=== PATIENT | female | born 1970 | race Caucasian/White ===

== ENCOUNTER 2017-01-24 10:30 | Outpatient (CLI) | payer OTHER, MEDICAID ==
--- OUTSIDE RECORDS SUMMARY | 2017-01-23 07:00 | XMS REPORT | Continuity of Care Document ---
Author Author [facility] Organization [facility] Address Unknown Phone Unavailable Allergies Active Description Code Type Severity Reaction Onset Reported/Identified Relationship to Patient Clinical Status Yes codeine [id number] Drug Allergy Unknown N/A 11/10/2006 Medications Problems Date Dx Coded Attending Type Code Diagnosis Diagnosed By 11/14/2011 Ot 599.0 11/14/2011 Ot 616.10 11/14/2011 Ot 625.9 11/14/2011 Ot 646.63 07/20/2015 Ot 652.23 07/20/2015 Ot V28.89 07/20/2015 Ot 654.23 07/20/2015 Ot V72.63 07/20/2015 Ot V74.8 01/02/2016 EWA MORIN MD Ot 724.79 01/02/2016 EWA MORIN MD Ot V76.12 01/03/2016 EWA MORIN MD Ot 724.79 01/03/2016 EWA MORIN MD Ot V76.12 01/03/2016 Ot 652.23 01/03/2016 Ot V28.89 01/03/2016 Ot 654.23 01/03/2016 Ot V72.63 01/03/2016 Ot V74.8 01/03/2016 EWA MORIN MD Ot E66.9 OBESITY, UNSPECIFIED 01/03/2016 EWA MORIN MD Ot E78.5 HYPERLIPIDEMIA, UNSPECIFIED 01/03/2016 EWA MORIN MD Ot R07.89 OTHER CHEST PAIN 01/03/2016 EWA MORIN MD Ot Z68.39 BODY MASS INDEX (BMI) 39.0-39.9, ADULT 01/03/2016 EWA MORIN MD Ot Z82.49 FAMILY HX OF ISCHEM HEART DIS AND OTH DI 01/03/2016 EWA MORIN MD Ot E66.9 01/03/2016 EWA MORIN MD Ot E78.5 01/03/2016 EWA MORIN MD Ot R07.89 01/03/2016 EWA MORIN MD Ot Z68.39 01/03/2016 EWA MORIN MD Ot Z82.49 02/21/2016 EWA MORIN MD Ot 724.79 02/21/2016 EWA MORIN MD Ot V76.12 02/21/2016 EWA MORIN MD Ot 724.79 02/21/2016 EWA MORIN MD Ot V76.12 03/07/2016 EWA MORIN MD Ot 724.79 DISORDER OF COCCYX NEC 03/07/2016 EWA MORIN MD Ot V76.12 OTH SCREEN MAMMO-MALIGN NEOPLASM OF JOANNE 06/26/2016 Ot 652.23 BREECH PRESENT-ANTEPART 06/26/2016 Ot V28.89 OTHER SPECIFIED SCREENING 06/26/2016 Ot 654.23 PREV DELIVERY, ANTEPARTUM COND 06/26/2016 Ot V72.63 PRE-PROCEDURAL LABORATORY EXAMINATION 06/26/2016 Ot V74.8 SCREEN-BACTERIAL DIS NEC 06/27/2016 EWA MORIN MD Ot M25.531 PAIN IN RIGHT WRIST 07/03/2016 Ot 652.23 BREECH PRESENT-ANTEPART 07/03/2016 Ot V28.89 OTHER SPECIFIED SCREENING 07/03/2016 Ot 654.23 PREV DELIVERY, ANTEPARTUM COND 07/03/2016 Ot V72.63 PRE-PROCEDURAL LABORATORY EXAMINATION 07/03/2016 Ot V74.8 SCREEN-BACTERIAL DIS NEC 07/03/2016 EWA MORIN MD Ot M25.531 PAIN IN RIGHT WRIST 07/08/2016 EWA MORIN MD Ot M25.531 PAIN IN RIGHT WRIST 07/29/2016 Ot 652.23 BREECH PRESENT-ANTEPART 07/29/2016 Ot V28.89 OTHER SPECIFIED SCREENING 07/29/2016 Ot 654.23 PREV DELIVERY, ANTEPARTUM COND 07/29/2016 Ot V72.63 PRE-PROCEDURAL LABORATORY EXAMINATION 07/29/2016 Ot V74.8 SCREEN-BACTERIAL DIS NEC 07/29/2016 EWA MORIN MD Ot M25.531 PAIN IN RIGHT WRIST 07/30/2016 EWA MORIN MD Ot M53.3 SACROCOCCYGEAL DISORDERS, NOT ELSEWHERE 07/30/2016 EWA MORIN MD Ot Z12.31 ENCNTR SCREEN MAMMOGRAM FOR MALIGNANT NE 08/04/2016 EWA MORIN MD Ot M53.3 SACROCOCCYGEAL DISORDERS, NOT ELSEWHERE 08/04/2016 EWA MORIN MD Ot Z12.31 ENCNTR SCREEN MAMMOGRAM FOR MALIGNANT NE 08/09/2016 EWA MORIN MD Ot M53.3 SACROCOCCYGEAL DISORDERS, NOT ELSEWHERE 08/09/2016 EWA MORIN MD Ot Z12.31 ENCNTR SCREEN MAMMOGRAM FOR MALIGNANT NE Procedures Results Encounters ACCT No. Visit Date/Time Discharge Status Pt. Type Provider Facility Loc./Unit Complaint [id number] 01/02/2016 21:27:00 2015 17:04:00 DIS Inpatient EWA MORIN MD [facility] CSD [id number] 07/26/2015 11:32:00 2014 23:59:59 CLS Outpatient EWA MORIN MD [facility] RAD [id number] 01/23/2017 06:56:00 ACT Outpatient BRII ALFRED MD [facility] PREOP DIARRHEA [id number] 07/29/2016 08:55:00 ACT Outpatient EWA MORIN MD [facility] RAD SCREENING MAMMOGRAM [id number] 06/26/2016 09:41:00 ACT Outpatient EWA MORIN MD [facility] RAD XR RT WRIST [id number] 07/20/2015 12:22:00 Document Registration [id number] 07/20/2015 12:22:00 Document Registration [id number] 06/01/2012 08:40:00 Document Registration [id number] 11/14/2011 18:43:00 Document Registration
[~2017-01-24] VITALS: Ht 162.6 cm; Wt 103.9 kg
[~2017-01-24 10:30] MED LIST: ACET-168 PO; AZIT-21 PO; AZTH250C PO; BCP PO; CHOLESTEROL MED; CPR500T PO; IBP600T1 PO; IBUP-30 PO; METR500T PO; NITR100C PO; OXYC-12 PO; PREN1TAB83 PO
[2017-01-24] MEDS ORDERED: SIMV10TA3 PO (10:56)
[2017-01-24] MEDS ORDERED: MELO15TA39 PO (10:56)
--- OUTSIDE RECORDS SUMMARY | 2017-01-24 11:08 | XMS REPORT | Continuity of Care Document ---
Author Author [facility] Organization [facility] Address Unknown Phone Unavailable Allergies Active Description Code Type Severity Reaction Onset Reported/Identified Relationship to Patient Clinical Status Yes codeine [id number] Drug Allergy Unknown N/A 11/10/2006 Medications Problems [...] MORIN MD Ot E66.9 OBESITY, UNSPECIFIED 01/03/2016 WEA MORIN MD Ot E78.5 HYPERLIPIDEMIA, UNSPECIFIED 01/03/2016 [...] Z12.31 ENCNTR SCREEN MAMMOGRAM FOR MALIGNANT NE 01/23/2017 AUBRIE OLIVEROS, BRII Warren Ot R19.7 DIARRHEA, UNSPECIFIED 01/23/2017 AUBRIE OLIVEROS, BRII Warren Ot Z01.818 ENCOUNTER FOR OTHER PREPROCEDURAL EXAMIN Procedures Results Encounters ACCT No. Visit Date/Time Discharge Status Pt. Type Provider Facility Loc./Unit Complaint [id number] 01/02/2016 21:27:00 2015 17:04:00 DIS Inpatient EWA MORIN MD [facility] CSD [id number] 07/26/2015 11:32:00 2014 23:59:59 CLS Outpatient EWA MORIN MD [facility] RAD [id number] 01/23/2017 06:56:00 ACT Outpatient BRII ALFRED MD [facility] PREOP DIARRHEA [id number] 07/29/2016 08:55:00 ACT Outpatient EWA MORIN MD [facility] RAD SCREENING MAMMOGRAM [id number] 06/26/2016 09:41:00 ACT Outpatient EWA MORIN MD [facility] RAD XR RT WRIST [id number] 07/20/2015 12:22:00 Document Registration [id number] 07/20/2015 12:22:00 Document Registration [id number] 06/01/2012 08:40:00 Document Registration [id number] 11/14/2011 18:43:00 Document Registration
== END 2017-01-24 11:25 ==
LOC: PREOP 10:30
PROVIDERS: ATTEND Surgery
DX: Z01.818 Encounter for other preprocedural examination (principal); R19.7 Diarrhea, unspecified

== ENCOUNTER 2017-01-27 08:26 | Day surgery (SDC) | payer OTHER, MEDICAID ==
[~2017-01-27] VITALS: Ht 162.6 cm; Wt 103.9 kg
[~2017-01-27 08:26] MED LIST changes: +MELO15TA39 PO; +SIMV10TA3 PO
--- OUTSIDE RECORDS SUMMARY | 2017-01-27 08:29 | XMS REPORT | Continuity of Care Document ---
Author Author [facility] Organization [facility] Address Unknown Phone Unavailable Allergies Active Description Code Type Severity Reaction Onset Reported/Identified Relationship to Patient Clinical Status Yes codeine [id number] Drug Allergy Unknown N/A 11/10/2006 Yes codeine [id number] Drug Allergy Moderate GI UPSET/NUMBNE 01/24/2017 Medications Problems Date Dx Coded Attending Type [...] 07/29/2016 Ot V74.8 SCREEN-BACTERIAL DIS NEC 07/29/2016 PATIENCE OLIVEROS, EWA Wren Ot M25.531 PAIN IN RIGHT WRIST 07/30/2016 [...] Ot Z01.818 ENCOUNTER FOR OTHER PREPROCEDURAL EXAMIN 01/24/2017 AUBRIE OLIVEROS, BRII Warren Ot R19.7 DIARRHEA, UNSPECIFIED 01/24/2017 AUBRIE OLIVEROS, BRII Warren Ot Z01.818 ENCOUNTER FOR OTHER PREPROCEDURAL EXAMIN 01/24/2017 AUBRIE OLIVEROS, BRII Warren Ot R19.7 DIARRHEA, UNSPECIFIED 01/24/2017 AUBRIE OLIVEROS, BRII Warren Ot Z01.818 ENCOUNTER FOR OTHER PREPROCEDURAL EXAMIN Procedures Results Encounters ACCT No. Visit Date/Time Discharge Status Pt. Type Provider Facility Loc./Unit Complaint [id number] 01/24/2017 10:30:00 2016 11:25:00 DIS Outpatient BRII ALFRED MD [facility] PREOP DIARRHEA [id number] 01/02/2016 21:27:00 2015 17:04:00 DIS Inpatient EWA MORIN MD [facility] CSD [id number] 07/26/2015 11:32:00 2014 23:59:59 CLS Outpatient EWA MORIN MD [facility] RAD [id number] 01/24/2017 10:56:00 Document Registration [id number] 01/24/2017 10:56:00 Document Registration [id number] 07/29/2016 08:55:00 ACT Outpatient PATIENCE OLIVEROS, EWA Wren [facility] RAD SCREENING MAMMOGRAM [id number] 06/26/2016 09:41:00 ACT Outpatient EWA MORIN MD [facility] RAD XR RT WRIST [id number] 07/20/2015 12:22:00 Document Registration [id number] 07/20/2015 12:22:00 Document Registration [id number] 06/01/2012 08:40:00 Document Registration [id number] 11/14/2011 18:43:00 Document Registration
--- OUTSIDE RECORDS SUMMARY | 2017-01-27 08:30 | XMS REPORT | Continuity of Care Document ---
Author Author [facility] Organization [facility] Address Unknown Phone Unavailable Allergies Active Description Code Type Severity Reaction Onset Reported/Identified Relationship to Patient Clinical Status Yes codeine [id number] Drug Allergy Unknown N/A 11/10/2006 Yes codeine [id number] Drug Allergy Moderate GI UPSET/NUMBNE 01/24/2017 Medications [...] Ot V74.8 SCREEN-BACTERIAL DIS NEC 06/27/2016 EWA OMRIN MD Ot M25.531 PAIN IN RIGHT WRIST [...] Status Pt. Type Provider Facility Loc./Unit Complaint [id number] 01/24/2017 10:30:00 2016 11:25:00 DIS Outpatient BRII ALFRED MD [facility] PREOP DIARRHEA [id number] 01/02/2016 21:27:00 2015 17:04:00 DIS Inpatient EWA MORIN MD [facility] CSD [id number] 07/26/2015 11:32:00 2014 23:59:59 CLS Outpatient EWA MORIN MD [facility] RAD [id number] 01/24/2017 10:56:00 Document Registration [id number] 01/24/2017 10:56:00 Document Registration [id number] 07/29/2016 08:55:00 ACT Outpatient PATIENCE OLIVEROS, EWA Wren [facility] RAD SCREENING MAMMOGRAM [id number] 06/26/2016 09:41:00 ACT Outpatient EWA MORIN MD [facility] RAD XR RT WRIST [id number] 07/20/2015 12:22:00 Document Registration [id number] 07/20/2015 12:22:00 Document Registration [id number] 06/01/2012 08:40:00 Document Registration [id number] 11/14/2011 18:43:00 Document Registration
[2017-01-27] MEDS ORDERED: NS IV 500 ML 500 ML IV SCH (08:45)
[2017-01-27] MEDS ORDERED: NALOXONE 0.4 MG/ML 1 ML (NARCAN) VIAL IVP PRN (08:45)
[2017-01-27] MEDS ORDERED: FLUMAZENIL (ROMAZICON) 0.1 MG/ML 5 ML VIAL INJ PRN (08:45)
[2017-01-27 08:58] VITALS: BP 125/78
--- NOTE | 2017-01-27 09:23 | Pre-Op Note & Conscious Sedat ---
Pre-Operative Progress Note H&P Reviewed The H&P was reviewed, patient examined and no changes noted. Date H&P Reviewed: Jan 27, 2017 Time H&P Reviewed: 09:23 Pre-Op Diagnosis: ddiarrhea. Family history of colon polyps Conscious Sedation Pre-Proced ASA Class: 2 Airway Mallampati Classification: (cahto appropriate class) I. II. III, IV Lungs Heart ASA score ASA 1: a normal healthy patient ASA 2: a patient with a mild systemic disease (mid diabetes, controlled hypertension, obesity ASA 3: a patient with a severe systemic disease that limits activity (angina , COPD, prior Myocardial infarction) ASA 4: a patient with an incapacitating disease that is a constant threat to life (CHF, renal failure) ASA 5: a moribund patient not expected to survive 24 hrs. (ruptured aneurysm) ASA 6: a declared brain patient whose organs are being harvested. For emergent operations, add the letter E after the classification Grade 1 Sedation Plan: Discussed options with patient/fam Note The patient is an appropriate candidate to undergo the planned procedure, sedation, and anesthesia. The patient immediately re-assessed prior to indication. BRII ALFRED MD Jan 27, 2017 9:23 am
[2017-01-27] MEDS ORDERED: fentaNYL INJECTION 100 MCG/2 ML AMP ONE ×2 (10:04)
[2017-01-27] MEDS ORDERED: MIDAZOLAM 2 MG/2 ML (VERSED) VIAL ONE ×4 (10:04→10:05)
[2017-01-27] MEDS: fentaNYL INJECTION 100 MCG/2 ML AMP IVP PRN ×2 (10:19→10:21)
[2017-01-27] MEDS: MIDAZOLAM 2 MG/2 ML (VERSED) VIAL IVP PRN ×2 (10:20→10:24)
[2017-01-27 10:55] VITALS: BP 96/60
--- NOTE | 2017-01-27 10:58 | Progress Note-Post Operative ---
Post-Operative Progess Note Pre-Operative Diagnosis diarrhea. Family history of colon polyps Post-Operative Diagnosis normal examination Post-Op Procedure Note Date of Procedure: Jan 27, 2017 Name of Procedure: colonoscopy to cecum Anesthesia Type sedation BRII ALFRED MD Jan 27, 2017 10:58 am
--- NOTE | 2017-01-27 10:59 | Discharge Inst-Simple/Standard ---
Discharge Inst-Standard Discharge Medications New, Converted or Re-Newed RX: Other Patient Instructions/Follow Up Plan of Care/Instructions/FU: repeat colonoscopy in 5 years Activity as Tolerated: Yes Discharge Diet: No Restrictions BRII ALFRED MD Jan 27, 2017 10:59 am
[2017-01-27 11:25] VITALS: BP 96/50
--- NOTE | 2017-01-27 11:40 | OPERATIVE REPORT ---
PROCEDURE PHYSICIAN: BRII ALFRED DATE OF PROCEDURE: 01/27/2017 PROCEDURE: Colonoscopy. SURGEON: Dr. Alfred. INDICATION FOR THE PROCEDURE: This lady came in for colonoscopy to evaluate intermittent diarrhea and on the basis of a family history of polyps (both parents). Informed consent was obtained after reviewing the procedure in detail. DESCRIPTION OF PROCEDURE: She was placed in left lateral decubitus position and her vital signs were monitored. Conscious sedation was achieved using Versed and fentanyl. Digital rectal examination was unremarkable. The colonoscope was then introduced into the rectum and advanced all the way up to the cecum. The quality of bowel preparation was excellent. The scope was then withdrawn slowly and the mucosa examined in a systematic fashion. There was no abnormality. She tolerated the procedure well and was taken back to the nursing area in a stable condition. IMPRESSION: 1. Intermittent diarrhea. 2. Family history of polyps. 3. Normal colonoscopy. RECOMMENDATION: 1. I recommend treating diarrhea symptomatically. 2. Screening colonoscopy in 5 years in view of family history of polyps. Job ID: [id number] Dictated Date: 01/27/2017 10:57:54 Invoice Coder Date: 01/27/2017 11:37:37 / guy MONTEMAYOR
== END 2017-01-27 11:45 | disposition home or self-care (01) ==
LOC: ENDO 08:26
PROVIDERS: ATTEND Surgery
DX: R19.7 Diarrhea, unspecified (principal); Z83.71 Family history of colonic polyps

== ENCOUNTER 2017-02-27 18:28 | Emergency (ER) | payer OTHER, MEDICAID ==
[~2017-02-27] VITALS: Ht 162.6 cm; Wt 102.1 kg
--- NOTE | 2017-02-27 19:16 | ED Abdominal Pain ---
General Chief Complaint: Abdominal/GI Problems Stated Complaint: ABD PAIN Nursing Triage Note: c/o bilateral upper abdomen pain x 2 days, denies n/v/d, denies pain at this time Sepsis Screen: No Definite Risk Source of Information: Patient Exam Limitations: No Limitations History of Present Illness Time Seen By Provider: 19:16 Initial Comments To ER with right-sided abdominal pain since yesterday morning. She denies any associated nausea vomiting or diarrhea or constipation. Despite the pain she was able to eat a [place] rio cheeseburger and cheese fries for lunch today without a worsening of her pain. She has a remote history of cholecystectomy. Timing/Duration: 1-2 Days Severity/Quality: Moderate Location: RUQ, Epigastric Radiation: No Radiation Associated Symptoms: No Fever/Chills, No Nausea/Vomiting Allergies and Home Medications Allergies Coded Allergies: codeine (Verified Allergy, Intermediate, GI UPSET/NUMBNESS IN ARMS, ) Home Medications Meloxicam 15 Mg Tablet, 15 MG PO DAILY, (Reported) Simvastatin 10 Mg Tablet, 10 MG PO HS, (Reported) Review of Systems Constitutional: see HPI EENTM: No Symptoms Reported Respiratory: No Symptoms Reported Cardiovascular: No Symptoms Reported Gastrointestinal: See HPI, Abdominal Pain, Denies Constipated, Denies Diarrhea , Denies Nausea, Denies Vomiting Genitourinary: No Symptoms Reported Musculoskeletal: no symptoms reported Skin: no symptoms reported Psychiatric/Neurological: No Symptoms Reported Endocrine: No Symptoms Reported Past Yuxrmsi-Ultxmg-Xnvqcj Hx Patient Social History Alcohol Use: Occasionally Uses Recreational Drug Use: No Smoking Status: Never a Smoker Former Smoker/When Quit: Aug 03, 1992 Recent Foreign Travel: No Contact w/Someone Who Travel: No Recent Infectious Disease Expo: No Recent Hopitalizations: No Immunizations Up To Date Tetanus Booster (TDap): Less than 5yrs PED Vaccines UTD: No Date of Influenza Vaccine: Aug 19, 2016 Seasonal Allergies Seasonal Allergies: No Surgeries HX Surgeries: Yes (RIGHT HAND CYST REMOVED, lymph node biopsy right axilla) Surgeries: Section, Gallbladder Respiratory Hx Respiratory Disorders: No Cardiovascular Hx Cardiac Disorders: Yes Cardiac Disorders: High Cholesterol Neurological Hx Neurological Disorders: No Reproductive System Hx Reproductive Disorders: No Sexually Transmitted Disease: No HIV/AIDS: No Female Reproductive Disorders: Denies Genitourinary Hx Genitourinary Disorders: No Gastrointestinal Hx Gastrointestinal Disorders: No Gastrointestinal Disorders: Gall Bladder Disease Musculoskeletal Hx Musculoskeletal Disorders: Yes (LEFT SHOULDER/NECK PAIN) Endocrine Hx Endocrine Disorders: No HEENT HX ENT Disorders: No (GLASSES) Loss of Vision: Bilateral Hearing Impairment: Denies Cancer Hx Cancer: No Psychosocial Hx Psychiatric Problems: No Integumentary HX Skin/Integumentary Disorder: No Blood Transfusions Hx Blood Disorders: No Adverse Reaction to a Blood Tr: No (N/A) Family Medical History Significant Family History: Heart Disease, Diabetes Family Medial History: Colon cancer 19 FATHER Diabetes mellitus 19 MOTHER G8 SISTER FH: CHF (congestive heart failure) 19 FATHER 19 MOTHER FH: breast cancer 19 MOTHER Myocardial infarction 19 FATHER Thyroid disease 19 MOTHER G8 SISTER Physical Exam Vital Signs VS - Last 72 Hours, by Label 02/27/17 19:08 Temp 99.4 Pulse 85 Resp 18 B/P (MAP) 138/101 Pulse Ox 96 Capillary Refill : Less Than 3 Seconds General Appearance: WD/WN, no apparent distress HEENT: PERRL/EOMI, normal ENT inspection Neck: non-tender, full range of motion Respiratory: normal breath sounds, no respiratory distress, no accessory muscle use Cardiovascular: regular rate, rhythm, no murmur Gastrointestinal: normal bowel sounds, non tender, soft Extremities: normal range of motion, non-tender Neurologic/Psychiatric: alert, normal mood/affect, oriented x 3 Skin: normal color, warm/dry Progress/Results/Core Measures Results/Orders Lab Results Laboratory Tests Test 02/27/17 19:25 02/27/17 20:20 Range/Units White Blood Count 7.9 4.3-11.0 10^3/uL Red Blood Count 4.45 4.35-5.85 10^6/uL Hemoglobin 12.8 11.5-16.0 G/DL Hematocrit 40 35-52 % Mean Corpuscular Volume 89 80-99 FL Mean Corpuscular Hemoglobin 29 25-34 PG Mean Corpuscular Hemoglobin Concent 32 32-36 G/DL Red Cell Distribution Width 12.6 10.0-14.5 % Platelet Count 280 130-400 10^3/uL Mean Platelet Volume 10.3 7.4-10.4 FL Neutrophils (%) (Auto) 69 42-75 % Lymphocytes (%) (Auto) 20 12-44 % Monocytes (%) (Auto) 8 0-12 % Eosinophils (%) (Auto) 3 0-10 % Basophils (%) (Auto) 0 0-10 % Neutrophils # (Auto) 5.5 1.8-7.8 X 10^3 Lymphocytes # (Auto) 1.6 1.0-4.0 X 10^3 Monocytes # (Auto) 0.6 0.0-1.0 X 10^3 Eosinophils # (Auto) 0.2 0.0-0.3 10^3/uL Basophils # (Auto) 0.0 0.0-0.1 10^3/uL Sodium Level 141 135-145 MMOL/L Potassium Level 3.8 3.6-5.0 MMOL/L Chloride Level 108 H 98-107 MMOL/L Carbon Dioxide Level 22 21-32 MMOL/L Anion Gap 11 5-14 MMOL/L Blood Urea Nitrogen 18 7-18 MG/DL Creatinine 0.68 0.60-1.30 MG/DL Estimat Glomerular Filtration Rate > 60 BUN/Creatinine Ratio 26 Glucose Level 97 70-105 MG/DL Calcium Level 9.2 8.5-10.1 MG/DL Total Bilirubin 0.2 0.1-1.0 MG/DL Aspartate Amino Transf (AST/SGOT) 31 5-34 U/L Alanine Aminotransferase (ALT/SGPT) 58 H 0-55 U/L Alkaline Phosphatase 130 40-136 U/L Total Protein 7.4 6.4-8.2 G/DL Albumin 4.4 3.2-4.5 G/DL Lipase 35 8-78 U/L Urine Color YELLOW Urine Clarity CLEAR Urine pH 8 5-9 Urine Specific [place] 1.015 L 1.016-1.022 Urine Protein NEGATIVE NEGATIVE Urine Glucose (UA) NEGATIVE NEGATIVE Urine Ketones NEGATIVE NEGATIVE Urine Nitrite NEGATIVE NEGATIVE Urine Bilirubin NEGATIVE NEGATIVE Urine Urobilinogen NORMAL NORMAL MG/DL Urine Leukocyte Esterase NEGATIVE NEGATIVE Urine RBC (Auto) NEGATIVE NEGATIVE Urine RBC NONE /HPF Urine WBC NONE /HPF Urine Squamous Epithelial Cells 2-5 /HPF Urine Crystals PRESENT H /LPF Urine Amorphous Sediment FEW IDA PHOSPHATE H /LPF Urine Bacteria NONE /HPF Urine Casts NONE /LPF Urine Mucus NEGATIVE /LPF Urine Culture Indicated NO My Orders Orders - FABIANA OLIVAS BRISKET PULLER Cbc With Automated Diff (02/27/17 19:12) Comprehensive Metabolic Panel (02/27/17 19:12) Ua Culture If Indicated (02/27/17 19:12) Lipase (4/20/17 19:12) Saline Lock/Iv-Start (02/27/17 19:12) Ct Abdomen/Pelvis W (02/27/17 20:55) Iohexol Injection (Omnipaque 350 Mg/Ml 1 (02/27/17 21:15) Ns (Ivpb) (Sodium Chloride 0.9% Ivpb Bag (02/27/17 21:15) Vital Signs/I&O Vital Sign - Last 12Hours 02/27/17 19:08 Temp 99.4 Pulse 85 Resp 18 B/P (MAP) 138/101 Pulse Ox 96 Blood Pressure Mean: 113 Departure Communication Progress Notes 2151-I did discuss with the patient and her the absence of any findings on lab or CT and the possibility of this being peptic ulcer given the right upper quadrant pain. She should use [id number] Pepcid or Prilosec twice a day for the next 14 days and follow-up with her regular physician. I did discuss these recommendations with her and her . Impression Impression: Primary Impression: Nonspecific abdominal pain Disposition: 01 HOME, SELF-CARE Condition: Stable Departure-Patient Inst. Decision time for Depature: 20:34 Referrals: EWA MORIN MD (PCP/Family) Primary Care Physician Patient Instructions: NO INSTRUCTIONS GIVEN Add. Discharge Instructions: 1. Follow-up with her regular doctor later this week or next week 2. Return to ER for any worsening 3. All discharge instructions reviewed with patient and/or family. Voiced understanding. FABIANA OLIVAS BRISKET PULLER Feb 27, 2017 19:16
[2017-02-27 19:57] LABS: BASOPHILS % (AUTO) 0 % (0-10); EOSINOPHILS # (AUTO) 0.2 10^3/uL (0.0-0.3); EOSINOPHILS % (AUTO) 3 % (0-10); LYMPHOCYTES # (AUTO) 1.6 X 10^3 (1.0-4.0); LYMPHOCYTES % (AUTO) 20 % (12-44); MEAN CORPUSCULAR HEMOGLOBIN 29 PG (25-34); MEAN CORPUSCULAR HGB CONC 32 G/DL (32-36); MEAN CORPUSCULAR VOLUME 89 FL (80-99); MEAN PLATELET VOLUME 10.3 FL (7.4-10.4); MONOCYTES # (AUTO) 0.6 X 10^3 (0.0-1.0); MONOCYTES % (AUTO) 8 % (0-12); NEUTROPHILS # (AUTO) 5.5 X 10^3 (1.8-7.8); NEUTROPHILS % (AUTO) 69 % (42-75); PLATELET COUNT 280 10^3/uL (130-400); RED BLOOD COUNT 4.45 10^6/uL (4.35-5.85); RED CELL DISTRIBUTION WIDTH 12.6 % (10.0-14.5); WHITE BLOOD COUNT 7.9 10^3/uL (4.3-11.0)
[2017-02-27 20:03] LABS: ALANINE AMINOTRANSFERASE 58 U/L (0-55); ALBUMIN 4.4 G/DL (3.2-4.5); ANION GAP 11 MMOL/L (5-14); ASPARTATE AMINO TRANSFERASE 31 U/L (5-34); BILIRUBIN,TOTAL 0.2 MG/DL (0.1-1.0); BLOOD UREA NITROGEN 18 MG/DL (7-18); BUN/CREATININE RATIO 26; CALCIUM 9.2 MG/DL (8.5-10.1); CARBON DIOXIDE 22 MMOL/L (21-32); CHLORIDE 108 MMOL/L (98-107); CREATININE SERUM 0.68 MG/DL (0.60-1.30); GFR ESTIMATED > 60; GLUCOSE 97 MG/DL (70-105); LIPASE 35 U/L (8-78); POTASSIUM 3.8 MMOL/L (3.6-5.0); SODIUM 141 MMOL/L (135-145); TOTAL PROTEIN 7.4 G/DL (6.4-8.2)
[2017-02-27 20:30] LABS: BILIRUBIN,URINE NEGATIVE (NEGATIVE); KETONES,URINE NEGATIVE (NEGATIVE); LEUKOCYTE ESTERASE ,URINE NEGATIVE (NEGATIVE); NITRITE,URINE NEGATIVE (NEGATIVE); PH,URINE 8 (5-9); PROTEIN,URINE NEGATIVE (NEGATIVE); UROBILINOGEN,URINE NORMAL (NORMAL)
[2017-02-27] MEDS ORDERED: NS 100 ML (IVPB) BAG IV ONE (21:15)
[2017-02-27] MEDS ORDERED: IOHEXOL 350 MG/ML 100 ML (OMNIPAQUE 350) VIAL IV ONE (21:15)
--- NOTE | 2017-02-27 21:37 | Diagnostic Imaging Report ---
PROCEDURE: CT abdomen and pelvis with contrast. TECHNIQUE: Multiple contiguous axial images were obtained through the abdomen and pelvis after administration of intravenous contrast. INDICATION: Stomach cramps. Upper abdominal pain. FINDINGS: The gallbladder is absent. The liver and bile ducts are normal. The spleen, pancreas and adrenals are normal. The kidneys, ureters and bladder are normal. The appendix is normal. No acute bowel abnormality is seen. There is no free intraperitoneal air or fluid. There is no bony abnormality. IMPRESSION: No acute abnormality is seen. Dictated by: Dictated on workstation # [id number]
[2017-02-27 21:54] VITALS: BP 129/95
== END 2017-02-27 21:54 | disposition home or self-care (01) ==
LOC: EDUNIT# 18:28 → ER 18:30
DX: R10.11 Right upper quadrant pain (principal); Z90.49 Acquired absence of other specified parts of digestive tract
CPT/HCPCS: 36415; 74177; 80053; 81000; 83690; 85025

== ENCOUNTER → 2017-07-29 | Outpatient (CLI) | payer OTHER, MEDICAID ==
[~2017-07-29] MED LIST changes: +BARIUM SUSPENSION 105% (LIQUID POLIBAR PLUS) 240 ML/DOSE PO ONE; +BARIUM SUSPENSION 60% (LIQUID EZ PAQUE) 240 ML DOSE PO ONE
--- NOTE | 2017-07-29 10:06 | Diagnostic Imaging Report ---
EXAMINATION: Upper GI study, double contrast. Corrugated Box Machine Operator image of the abdomen was performed. After the oral administration of gas forming granules, the patient drank thick and thin barium with visualization under fluoroscopy, with spot images taken over the esophagus, stomach and duodenum and followed by overhead images in the chest and abdomen. INDICATION: Reflux. FLUOROSCOPY TIME: 50 seconds. FINDINGS: Corrugated Box Machine Operator images of the abdomen demonstrate moderate amount of fecal material. Surgical clips in the upper right side of the abdomen is seen. The esophagus demonstrates normal caliber with no strictures. The mucosal pattern demonstrates no filling defects, diverticulum or ulceration. There is normal relaxation of the distal sphincter. There is no hiatal hernia. The stomach demonstrates normal distensibility with normal appearance of the mucosal folds. There are no ulcers or evidence of mass. The duodenal bulb and sweep appear normal. IMPRESSION: Unremarkable double-contrast upper GI study. Dictated by: Dictated on workstation # [id number]
== END ==
LOC: RAD 08:35
PROVIDERS: ATTEND Surgery
DX: K21.9 Gastro-esophageal reflux disease without esophagitis (principal)
CPT/HCPCS: 74241

== ENCOUNTER → 2017-08-11 | Outpatient (CLI) | payer OTHER, MEDICAID ==
[~2017-08-11] MED LIST changes: -BARIUM SUSPENSION 105% (LIQUID POLIBAR PLUS) 240 ML/DOSE PO ONE; -BARIUM SUSPENSION 60% (LIQUID EZ PAQUE) 240 ML DOSE PO ONE
--- NOTE | 2017-08-12 11:17 | Diagnostic Imaging Report ---
EXAMINATION: Bilateral screening mammogram 2D views with tomosynthesis. The current study was also evaluated with a Computer Aided Detection (CAD) system. INDICATION: Screening. PERSONAL HISTORY: No current complaints stated on the questionnaire. COMPARISON: 07/29/2016. FINDINGS: The breasts are composed of heterogeneously dense parenchyma which may decrease mammographic sensitivity. There are punctate scattered calcifications seen. Allowing for technique and positional differences, no suspicious change is seen. IMPRESSION: Dense breasts with no definite change. ACR BI-RADS Category 2: Benign findings. Result letter will be mailed to the patient. Note: At least 10% of breast cancer is not imaged by mammography. Dictated by: Dictated on workstation # [id number]
== END ==
LOC: RAD 15:22
PROVIDERS: ATTEND Family Medicine
DX: Z12.31 Encounter for screening mammogram for malignant neoplasm of breast (principal)
CPT/HCPCS: 77067

== ENCOUNTER 2017-08-24 18:19 | Emergency (ER) | payer OTHER, MEDICAID ==
[~2017-08-24] VITALS: Ht 162.6 cm; Wt 102.1 kg
[2017-08-24] MEDS ORDERED: METH4TAB PO (19:40)
--- NOTE | 2017-08-24 19:40 | ED Upper Extremity ---
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 This began this morning at about 8 or 830 while at work at [employer]. 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 Onset: this morning Severity: moderate Pain/Injury Location: left shoulder Method of Injury: other (presumed related to lifting patients) Modifying Factors: Worse With Movement Allergies and Home Medications Allergies Coded Allergies: codeine (Verified Allergy, Intermediate, GI UPSET/NUMBNESS IN ARMS, ) Home Medications Meloxicam 15 Mg Tablet, 15 MG PO DAILY, (Reported) Methylprednisolone 4 Mg Tab.ds.pk, 4 MG PO UD, #1 Prescribed by: FABIANA OLIVAS on 08/24/171939 Simvastatin 10 Mg Tablet, 10 MG PO HS, (Reported) Constitutional: see HPI EENTM: see HPI Respiratory: no symptoms reported Cardiovascular: no symptoms reported Genitourinary: no symptoms reported Musculoskeletal: see HPI Skin: no symptoms reported Psychiatric/Neurological: No Symptoms Reported Past Qermxkq-Lzmamm-Ownlty Hx Patient Social History Former Smoker, Quit: Jan 24, 1994 Recent Foreign Travel: No Contact w/Someone Who Travel: No Recent Infectious Disease Expo: No Recent Hopitalizations: No Immunizations Up To Date Tetanus Booster (TDap): Less than 5yrs PED Vaccines UTD: No Date of Influenza Vaccine: Aug 19, 2016 Seasonal Allergies Seasonal Allergies: No Surgeries Surgeries: Section, Gallbladder Cardiovascular Cardiac Disorders: High Cholesterol Reproductive System Hx Reproductive Disorders: No Sexually Transmitted Disease: No HIV/AIDS: No Female Reproductive Disorders: Denies Gastrointestinal Gastrointestinal Disorders: Gall Bladder Disease HEENT Loss of Vision: Bilateral Hearing Impairment: Denies Blood Transfusions Adverse Reaction to a Blood Tr: No (N/A) Family Medical History Significant Family History: Heart Disease, Diabetes Family Medial History: Colon cancer 19 FATHER Diabetes mellitus 19 MOTHER G8 SISTER FH: CHF (congestive heart failure) 19 FATHER 19 MOTHER FH: breast cancer 19 MOTHER Myocardial infarction 19 FATHER Thyroid disease 19 MOTHER G8 SISTER Physical Exam Vital Signs Vital Sign - Last 12Hours 08/24/17 19:09 Pulse 93 Resp 16 B/P (MAP) 123/76 Pulse Ox 94 O2 Delivery Room Air Capillary Refill : Less Than 3 Seconds General Appearance: WD/WN, no apparent distress HEENT: PERRL/EOMI, normal ENT inspection Neck: non-tender, full range of motion Respiratory: no respiratory distress, no accessory muscle use Gastrointestinal: normal bowel sounds, non tender Shoulder: normal inspection, No deformity, No ecchymosis, limited ROM, pain, No soft tissue tenderness, No swelling Elbow/Forearm: normal inspection, non-tender Wrist: Yes normal inspection, Yes non-tender Neurologic/Psychiatric: alert, normal mood/affect, oriented x 3 Skin: normal color, warm/dry Progress/Results/Core Measures Results/Orders My Orders Orders - FABIANA OLIVAS APRN Shoulder, Left, 3 Views (08/24/17 19:36) Vital Signs/I&O Vital Sign - Last 12Hours 08/24/17 19:09 Pulse 93 Resp 16 B/P (MAP) 123/76 Pulse Ox 94 O2 Delivery Room Air Blood Pressure Mean: 92 Departure Communication (Admissions) Progress Notes NAME: KIMBERLYN [facility] REC#: [id number] PT STATUS: REG ER : 1970 PHYSICIAN: FABIANA OLIVAS APRN ADMIT DATE: 08/24/17/ER Draft Date of Exam:08/24/17 SHOULDER, LEFT, 3 VIEWS INDICATION: Left shoulder pain, injury. COMPARISON: None. FINDINGS: Three views of left shoulder demonstrate no fracture or dislocation. Articular surfaces are age-appropriate. No osseous lesion. IMPRESSION: Negative left shoulder. Dictated on workstation # [id number] Dict: 08/24/171950 Trans: 08/24/171956 [facility] [id number] Interpreted by: EWA EDWARD Electronically signed by: Impression Impression: Primary Impression: Shoulder pain Disposition: 01 HOME, SELF-CARE Condition: Stable Departure-Patient Inst. Decision time for Depature: 19:38 Referrals: EWA MORIN MD (PCP/Family) Primary Care Physician Patient Instructions: Shoulder Pain (DC) Add. Discharge Instructions: 1. Follow-up with occupational health. If the pain resolves then you may remove the sling and begin using the arm again. If the pain persists they may wish to proceed to further imaging such as MRI All discharge instructions reviewed with patient and/or family. Voiced understanding. Scripts Methylprednisolone (Medrol) 4 Mg Tab.ds.pk 4 MG PO UD, #1 PKG Prov: FABIANA OLIVAS APRN 08/24/17 FABIANA OLIVAS APRN Aug 24, 2017 19:40
--- NOTE | 2017-08-24 19:58 | Diagnostic Imaging Report ---
INDICATION: Left shoulder pain, injury. COMPARISON: None. FINDINGS: Three views of left shoulder demonstrate no fracture or dislocation. Articular surfaces are age-appropriate. No osseous lesion. IMPRESSION: Negative left shoulder. Dictated by: Dictated on workstation # [id number]
[2017-08-24 20:22] VITALS: BP 123/76
== END 2017-08-24 20:17 | disposition home or self-care (01) ==
LOC: ER 18:19
DX: M25.512 Pain in left shoulder (principal); E78.00 Pure hypercholesterolemia, unspecified; Z82.49 Family history of ischemic heart disease and other diseases of the circulatory system; Z80.3 Family history of malignant neoplasm of breast; Z87.891 Personal history of nicotine dependence; Z87.59 Personal history of other complications of pregnancy, childbirth and the puerperium
CPT/HCPCS: 73030; 99283

== ENCOUNTER 2017-10-14 19:56 | Emergency (ER) | payer OTHER, MEDICAID ==
[~2017-10-14] VITALS: Ht 162.6 cm; Wt 102.1 kg
[~2017-10-14 19:56] MED LIST changes: +METH4TAB PO
[2017-10-14] MEDS ORDERED: methylPREDNISolone 125 MG (Solu-MEDROL) VIAL IM STA (20:36)
[2017-10-14] MEDS ORDERED: FAMOTIDINE 20 MG (PEPCID) TABLET PO STA (20:36)
[2017-10-14] MEDS ORDERED: diphenhydrAMINE 25 MG TAB (BENADRYL) PO ONE (20:45)
[2017-10-14] MEDS ORDERED: FAMO-119 PO (21:03)
[2017-10-14] MEDS ORDERED: PRD20T PO (21:03)
--- NOTE | 2017-10-14 21:04 | ED Integumentary General ---
General Chief Complaint: Allergic Reaction Stated Complaint: WHOLE BODY RASH Nursing Triage Note: PT REPORTS GENERALIZED RASH WITH ITCHING Source: patient Exam Limitations: no limitations History of Present Illness Time seen by provider: 21:02 Allergies and Home Medications Allergies Coded Allergies: codeine (Verified Allergy, Intermediate, GI UPSET/NUMBNESS IN ARMS, ) Home Medications Famotidine 20 Mg Tablet, 20 MG PO BID, #20 Ref 0 Prescribed by: DELMAR GONSALVES on 10/14/172102 Meloxicam 15 Mg Tablet, 15 MG PO DAILY, (Reported) Methylprednisolone 4 Mg Tab.ds.pk, 4 MG PO UD, #1 Prescribed by: FABIANA OLIVAS on 08/24/171939 Prednisone 20 Mg Tab, 40 MG PO DAILY, #10 Ref 0 Prescribed by: DELMAR GONSALVES on 10/14/172102 Simvastatin 10 Mg Tablet, 10 MG PO HS, (Reported) Past Oeqiyzf-Pgrxak-Hqtupi Hx Patient Social History Alcohol Use: Denies Use Recreational Drug Use: No Smoking Status: Never a Smoker Former Smoker, Quit: Jan 24, 1994 2nd Hand Smoke Exposure: No Recent Foreign Travel: No Contact w/Someone Who Travel: No Recent Infectious Disease Expo: No Recent Hopitalizations: No Physical Abuse: No Sexual Abuse: No Immunizations Up To Date Tetanus Booster (TDap): Less than 5yrs PED Vaccines UTD: No Date of Influenza Vaccine: Aug 19, 2016 Seasonal Allergies Seasonal Allergies: No Surgeries History of Surgeries: Yes (RIGHT HAND CYST REMOVED, lymph node biopsy right axilla) Surgeries: Section, Gallbladder Respiratory History of Respiratory Disorde: No Cardiovascular History of Cardiac Disorders: Yes Cardiac Disorders: High Cholesterol Neurological History of Neurological Disord: No Reproductive System Hx Reproductive Disorders: No Sexually Transmitted Disease: No HIV/AIDS: No Female Reproductive Disorders: Denies Gastrointestinal History of Gastrointestinal Di: No Gastrointestinal Disorders: Gall Bladder Disease Musculoskeletal History of Musculoskeletal Dis: Yes (LEFT SHOULDER/NECK PAIN) Endocrine History of Endocrine Disorders: No HEENT Loss of Vision: Bilateral Hearing Impairment: Denies Cancer History of Cancer: No Psychosocial History of Psychiatric Problem: No Suicide Risk Score: 0 Integumentary History of Skin or Integumenta: No Blood Transfusions History of Blood Disorders: No Adverse Reaction to a Blood Tr: No (N/A) Family Medical History Significant Family History: Heart Disease, Diabetes Family Medial History: Colon cancer 19 FATHER Diabetes mellitus 19 MOTHER G8 SISTER FH: CHF (congestive heart failure) 19 FATHER 19 MOTHER FH: breast cancer 19 MOTHER Myocardial infarction 19 FATHER Thyroid disease 19 MOTHER G8 SISTER Physical Exam Vital Signs Vital Sign - Last 12Hours 10/14/17 20:06 Temp 98.9 Pulse 75 Resp 16 B/P (MAP) 134/84 (101) Pulse Ox 99 O2 Delivery Room Air Capillary Refill : Less Than 3 Seconds Progress/Results/Core Measures Results/Orders My Orders Orders - DELMAR GONSALVES Methylprednisolone Sod Succ (Solu-Medrol (10/14/17 20:36) Famotidine Tablet (Pepcid Tablet) (10/14/17 20:36) Diphenhydramine Tablet (Benadryl Tablet) (10/14/17 20:45) Medications Given in ED Current Medications Medications Dose Ordered Sig/Farhat Route Start Time Stop Time Status Last Admin Dose Admin Diphenhydramine HCl 25 mg ONCE ONCE PO 10/14/17 20:45 10/14/17 20:46 DC 10/14/17 20:48 25 MG Vital Signs/I&O Vital Sign - Last 12Hours 10/14/17 20:06 Temp 98.9 Pulse 75 Resp 16 B/P (MAP) 134/84 (101) Pulse Ox 99 O2 Delivery Room Air Blood Pressure Mean: 101 Departure Impression Impression: Primary Impression: Allergic dermatitis Disposition: 01 HOME, SELF-CARE Condition: Improved Departure-Patient Inst. Decision time for Depature: 21:02 Referrals: EWA MORIN MD (PCP/Family) Primary Care Physician Patient Instructions: Skin Rash (DC) Add. Discharge Instructions: All discharge instructions reviewed with patient and/or family. Voiced understanding. Medications as instructed. Benadryl hyln-zdx-rdbarvi as directed for itching and rash. Follow-up with your family practitioner for recheck if no improvement in symptoms. Return in the emergency department for worsened itching, swelling, difficulty breathing, difficulty swallowing, facial swelling, or any other concerns. Scripts Famotidine (Pepcid) 20 Mg Tablet 20 MG PO BID, #20 TAB 0 Refills Prov: DELMAR GONSALVES 10/14/17 Prednisone (Prednisone) 20 Mg Tab 40 MG PO DAILY, #10 TAB 0 Refills Prov: DELMAR GONSALVES 10/14/17 Work/School Note: Work Release Form Date Seen in the Emergency Department: Oct 14, 2017 Return to Work: Oct 16, 2017 DELMAR GONSALVES Oct 14, 2017 21:04
[2017-10-14 21:15] VITALS: BP 134/84
== END 2017-10-14 21:15 | disposition home or self-care (01) ==
LOC: EDUNIT# 19:56 → ER 19:58
DX: L23.9 Allergic contact dermatitis, unspecified cause (principal); E78.00 Pure hypercholesterolemia, unspecified; Z82.49 Family history of ischemic heart disease and other diseases of the circulatory system; Z80.3 Family history of malignant neoplasm of breast; Z87.891 Personal history of nicotine dependence; Z87.59 Personal history of other complications of pregnancy, childbirth and the puerperium
CPT/HCPCS: 99284

== ENCOUNTER 2017-10-26 07:15 | Observation (INO) | payer OTHER, MEDICAID ==
[~2017-10-26] VITALS: Ht 170.2 cm; Wt 107.7 kg
[~2017-10-26 07:15] MED LIST changes: +FAMO-119 PO; +PRD20T PO
--- OUTSIDE RECORDS SUMMARY | 2017-10-26 07:21 | XMS REPORT | Continuity of Care Document ---
Author Author [facility] Organization [facility] Address Unknown Phone Unavailable Allergies Active Description Code Type Severity Reaction Onset Reported/Identified Relationship to Patient Clinical Status Yes codeine [id number] Drug Allergy Unknown N/A 11/10/2006 Yes codeine [id number] Drug Allergy Moderate GI UPSET/NUMBNE 01/24/2017 Medications There is no data. Problems Date Dx Coded Attending Type Code [...] PREV DELIVERY, ANTEPARTUM COND 06/26/2016 Ot V72.63 PRE- PROCEDURAL LABORATORY EXAMINATION 06/26/2016 Ot V74.8 SCREEN- BACTERIAL DIS NEC 06/27/2016 EWA MORIN MD Ot M25.531 PAIN IN RIGHT WRIST 07/03/2016 Ot 652.23 BREECH PRESENT-ANTEPART 07/03/2016 Ot V28.89 OTHER SPECIFIED SCREENING 07/03/2016 Ot 654.23 PREV DELIVERY, ANTEPARTUM COND 07/03/2016 Ot V72.63 PRE- PROCEDURAL LABORATORY EXAMINATION 07/03/2016 Ot V74.8 SCREEN- BACTERIAL DIS NEC 07/03/2016 EWA MORIN MD Ot M25.531 PAIN IN RIGHT WRIST 07/08/2016 EWA MORIN MD Ot M25.531 PAIN IN RIGHT WRIST 07/29/2016 Ot 652.23 BREECH PRESENT-ANTEPART 07/29/2016 Ot V28.89 OTHER SPECIFIED SCREENING 07/29/2016 Ot 654.23 PREV DELIVERY, ANTEPARTUM COND 07/29/2016 Ot V72.63 PRE- PROCEDURAL LABORATORY EXAMINATION 07/29/2016 Ot V74.8 SCREEN- BACTERIAL DIS NEC 07/29/2016 PATIENCE OLIVEROS, EWA Wren Ot M25.531 PAIN IN RIGHT WRIST 07/30/2016 PATIENCE OLIVEROS, EWA Wren Ot M53.3 SACROCOCCYGEAL DISORDERS, NOT ELSEWHERE 07/30/2016 EWA MORIN MD Ot Z12.31 ENCNTR SCREEN MAMMOGRAM FOR MALIGNANT NE 08/04/2016 EWA MORIN MD Ot M53.3 SACROCOCCYGEAL DISORDERS, NOT ELSEWHERE 08/04/2016 EWA MORIN MD Ot Z12.31 ENCNTR SCREEN MAMMOGRAM FOR MALIGNANT NE 08/09/2016 EWA MORIN MD, Ot M53.3 SACROCOCCYGEAL DISORDERS, NOT ELSEWHERE 08/09/2016 [...] Ot Z01.818 ENCOUNTER FOR OTHER PREPROCEDURAL EXAMIN 01/27/2017 Ot 652.23 BREECH PRESENT-ANTEPART 01/27/2017 Ot V28.89 OTHER SPECIFIED SCREENING 01/27/2017 Ot 654.23 PREV DELIVERY, ANTEPARTUM COND 01/27/2017 Ot V72.63 PRE- PROCEDURAL LABORATORY EXAMINATION 01/27/2017 Ot V74.8 SCREEN- BACTERIAL DIS NEC 01/27/2017 EWA MORIN MD Ot M53.3 SACROCOCCYGEAL DISORDERS, NOT ELSEWHERE 01/27/2017 EWA MORIN MD Ot Z12.31 ENCNTR SCREEN MAMMOGRAM FOR MALIGNANT NE 01/27/2017 PATIENCE OLIVEROS, EWA Wren Ot M25.531 PAIN IN RIGHT WRIST 01/27/2017 AUBRIE OLIVEROS, BRII M Ot R19.7 DIARRHEA, UNSPECIFIED 01/27/2017 AUBRIE OLIVEROS, BRII M Ot Z83.71 FAMILY HISTORY OF COLONIC POLYPS 01/27/2017 AUBRIE OLIVEROS, BRII M Ot R19.7 DIARRHEA, UNSPECIFIED 01/27/2017 AUBRIE OLIVEROS, BRII M Ot Z01.818 ENCOUNTER FOR OTHER PREPROCEDURAL EXAMIN 01/28/2017 AUBRIE OLIVEROS, BRII M Ot R19.7 DIARRHEA, UNSPECIFIED 01/28/2017 AUBRIE OLIVEROS, BRII M Ot Z83.71 FAMILY HISTORY OF COLONIC POLYPS 01/30/2017 AUBRIE OLIVEROS, BRII M Ot R19.7 DIARRHEA, UNSPECIFIED 01/30/2017 AUBRIE OLIVEROS, BRII M Ot Z01.818 ENCOUNTER FOR OTHER PREPROCEDURAL EXAMIN 02/11/2017 AUBRIE OLIVEROS, BRII M Ot R19.7 DIARRHEA, UNSPECIFIED 02/11/2017 AUBRIE OLIVEROS, BRII M Ot Z83.71 FAMILY HISTORY OF COLONIC POLYPS 02/27/2017 FABIANA OLIVAS APRN Ot R10.11 RIGHT UPPER QUADRANT PAIN 02/27/2017 FABIANA OLIVAS TECHNOLOGY ADVISOR Ot Z90.49 ACQUIRED ABSENCE OF OTHER SPECIFIED PART 02/28/2017 FABIANA OLIVAS TECHNOLOGY ADVISOR Ot R10.11 RIGHT UPPER QUADRANT PAIN 02/28/2017 FABIANA OLIVAS TECHNOLOGY ADVISOR Ot Z90.49 ACQUIRED ABSENCE OF OTHER SPECIFIED PART 08/08/2017 ANNEMARIE BRYANT MD Ot K21.9 GASTRO-ESOPHAGEAL REFLUX DISEASE WITHOUT 08/12/2017 EWA MORIN MD Ot Z12.31 ENCNTR SCREEN MAMMOGRAM FOR MALIGNANT NE 08/20/2017 ANNEMARIE BRYANT MD Ot K21.9 GASTRO-ESOPHAGEAL REFLUX DISEASE WITHOUT 08/22/2017 EWA MORIN MD Ot Z12.31 ENCNTR SCREEN MAMMOGRAM FOR MALIGNANT NE 08/24/2017 FABIANA OLIVAS APRN Ot E78.00 PURE HYPERCHOLESTEROLEMIA, UNSPECIFIED 08/24/2017 FABIANA OLIVAS APRN Ot M25.512 PAIN IN LEFT SHOULDER 08/24/2017 FABIANA OLIVAS APRN Ot Z80.3 FAMILY HISTORY OF MALIGNANT NEOPLASM OF 08/24/2017 FABIANA OLIVAS APRN Ot Z82.49 FAMILY HX OF ISCHEM HEART DIS AND OTH DI 08/24/2017 FABIANA OLIVAS APRN Ot Z87.59 PERSONAL HISTORY OF COMP OF PREG, CHLDBR 08/24/2017 FABIANA OLIVAS APRN Ot Z87.891 PERSONAL HISTORY OF NICOTINE DEPENDENCE 08/30/2017 ANNEMARIE BRYANT MD Ot K21.9 GASTRO-ESOPHAGEAL REFLUX DISEASE WITHOUT 08/30/2017 EWA MORIN MD, Ot Z12.31 ENCNTR SCREEN MAMMOGRAM FOR MALIGNANT NE 10/14/2017 Ot 654.23 PREV DELIVERY, ANTEPARTUM COND 10/14/2017 Ot V72.63 PRE- PROCEDURAL LABORATORY EXAMINATION 10/14/2017 Ot V74.8 SCREEN- BACTERIAL DIS NEC 10/14/2017 EWA MORIN MD Ot M53.3 SACROCOCCYGEAL DISORDERS, NOT ELSEWHERE 10/14/2017 EWA MORIN MD, Ot Z12.31 ENCNTR SCREEN MAMMOGRAM FOR MALIGNANT NE 10/14/2017 EWA MORIN MD Ot M25.531 PAIN IN RIGHT WRIST 10/14/2017 ANNEMARIE BRYANT MD Ot K21.9 GASTRO-ESOPHAGEAL REFLUX DISEASE WITHOUT 10/14/2017 EWA MORIN MD, Ot Z12.31 ENCNTR SCREEN MAMMOGRAM FOR MALIGNANT NE 10/15/2017 DELMAR HERNANDEZ Ot E78.00 PURE HYPERCHOLESTEROLEMIA, UNSPECIFIED 10/15/2017 DELMAR HERNANDEZ Ot L23.9 ALLERGIC CONTACT DERMATITIS, UNSPECIFIED 10/15/2017 DELMAR HERNANDEZ Ot R21 RASH AND OTHER NONSPECIFIC SKIN ERUPTION 10/15/2017 DELMAR HERNANDEZ Ot Z80.3 FAMILY HISTORY OF MALIGNANT NEOPLASM OF 10/15/2017 DELMAR HERNANDEZ Ot Z82.49 FAMILY HX OF ISCHEM HEART DIS AND OTH DI 10/15/2017 DELMAR HERNANDEZ Ot Z87.59 PERSONAL HISTORY OF COMP OF PREG, CHLDBR 10/15/2017 DELMAR HERNANDEZ Ot Z87.891 PERSONAL HISTORY OF NICOTINE DEPENDENCE Procedures There is no data. Results Test Result Range Complete blood count (CBC) with automated white blood cell (WBC) differential - 02/27/17 19:25 Blood leukocytes automated count (number/volume) 7.9 10*3/uL 4.3-11.0 Blood erythrocytes automated count (number/volume) 4.45 10*6/uL 4.35-5.85 Venous blood hemoglobin measurement (mass/volume) 12.8 g/dL 11.5-16.0 Blood hematocrit (volume fraction) 40 % 35-52 Automated erythrocyte mean corpuscular volume 89 [foz_us] 80-99 Automated erythrocyte mean corpuscular hemoglobin (mass per erythrocyte) 29 pg 25-34 Automated erythrocyte mean corpuscular hemoglobin concentration measurement ( mass/volume) 32 g/dL 32-36 Automated erythrocyte distribution width ratio 12.6 % 10.0-14.5 Automated blood platelet count (count/volume) 280 10*3/uL 130-400 Automated blood platelet mean volume measurement 10.3 [foz_us] 7.4-10.4 Automated blood neutrophils/100 leukocytes 69 % 42-75 Automated blood lymphocytes/100 leukocytes 20 % 12-44 Blood monocytes/100 leukocytes 8 % 0-12 Automated blood eosinophils/100 leukocytes 3 % 0-10 Automated blood basophils/100 leukocytes 0 % 0-10 Blood neutrophils automated count (number/volume) 5.5 10*3 1.8-7.8 Blood lymphocytes automated count (number/volume) 1.6 10*3 1.0-4.0 Blood monocytes automated count (number/volume) 0.6 10*3 0.0-1.0 Automated eosinophil count 0.2 10*3/uL 0.0-0.3 Automated blood basophil count (count/volume) 0.0 10*3/uL 0.0-0.1 Comprehensive metabolic panel - 02/27/17 19:25 Serum or plasma sodium measurement (moles/volume) 141 mmol/L 135-145 Serum or plasma potassium measurement (moles/volume) 3.8 mmol/L 3.6-5.0 Serum or plasma chloride measurement (moles/volume) 108 mmol/L 98-107 Carbon dioxide 22 mmol/L 21-32 Serum or plasma anion gap determination (moles/volume) 11 mmol/L 5-14 Serum or plasma urea nitrogen measurement (mass/volume) 18 mg/dL 7-18 Serum or plasma creatinine measurement (mass/volume) 0.68 mg/dL 0.60-1.30 Serum or plasma urea nitrogen/creatinine mass ratio 26 NRG Serum or plasma creatinine measurement with calculation of estimated glomerular filtration rate > NRG Serum or plasma glucose measurement (mass/volume) 97 mg/dL 70-105 Serum or plasma calcium measurement (mass/volume) 9.2 mg/dL 8.5-10.1 Serum or plasma total bilirubin measurement (mass/volume) 0.2 mg/dL 0.1-1.0 Serum or plasma alkaline phosphatase measurement (enzymatic activity/volume) 130 U/L 40-136 Serum or plasma aspartate aminotransferase measurement (enzymatic activity/ volume) 31 U/L 5-34 Serum or plasma alanine aminotransferase measurement (enzymatic activity/volume ) 58 U/L 0-55 Serum or plasma protein measurement (mass/volume) 7.4 g/dL 6.4-8.2 Serum or plasma albumin measurement (mass/volume) 4.4 g/dL 3.2-4.5 Lipase - 02/27/17 19:25 Lipase 35 U/L 8-78 Complete urinalysis with reflex to culture - 02/27/17 20:20 Urine color determination YELLOW NRG Urine clarity determination CLEAR NRG Urine pH measurement by test strip 8 5-9 Specific gravity of urine by test strip 1.015 1.016- 1.022 Urine protein assay by test strip, semi-quantitative NEGATIVE NEGATIVE Urine glucose detection by automated test strip NEGATIVE NEGATIVE Erythrocytes detection in urine sediment by light microscopy NEGATIVE NEGATIVE Urine ketones detection by automated test strip NEGATIVE NEGATIVE Urine nitrite detection by test strip NEGATIVE NEGATIVE Urine total bilirubin detection by test strip NEGATIVE NEGATIVE Urine urobilinogen measurement by automated test strip (mass/volume) NORMAL NORMAL Urine leukocyte esterase detection by dipstick NEGATIVE NEGATIVE Automated urine sediment erythrocyte count by microscopy (number/high power field) NONE NRG Automated urine sediment leukocyte count by microscopy (number/high power field ) NONE NRG Bacteria detection in urine sediment by light microscopy NONE NRG Squamous epithelial cells detection in urine sediment by light microscopy 2-5 NRG Crystals detection in urine sediment by light microscopy PRESENT NRG Casts detection in urine sediment by light microscopy NONE NRG Mucus detection in urine sediment by light microscopy NEGATIVE NRG Complete urinalysis with reflex to culture NO NRG Amorphous sediment detection in urine sediment by light microscopy FEW IDA PHOSPHATE NRG Encounters ACCT No. Visit Date/Time Discharge Status Pt. Type Provider Facility Loc./Unit Complaint [id number] 10/14/2017 19:58:00 10/14/2017 21:15:00 DIS Outpatient DELMAR HERNANDEZ [facility] ER WHOLE BODY RASH [id number] 08/24/2017 18:19:00 08/24/2017 20:17:00 DIS Emergency FABIANA OLIVAS TECHNOLOGY ADVISOR [facility] ER L SHOULDER PAIN [id number] 08/11/2017 15:22:00 08/11/2017 23:59:59 CLS Outpatient EWA MORIN MD [facility] RAD SCREENING [id number] 07/29/2017 08:35:00 07/29/2017 23:59:59 CLS Outpatient ANNEMARIE BRYANT MD [facility] RAD REFLUX K21.9 [id number] 02/27/2017 18:30:00 02/27/2017 21:54:00 DIS Emergency FABIANA OLIVAS TECHNOLOGY ADVISOR [facility] ER ABD PAIN [id number] 01/27/2017 08:26:00 01/27/2017 11:45:00 DIS Outpatient BRII ALFRED MD [facility] ENDO DIARRHEA [id number] 01/24/2017 10:30:00 01/24/2017 11:25:00 DIS Outpatient BRII ALFRED MD [facility] PREOP DIARRHEA [id number] 07/29/2016 08:55:00 07/29/2016 23:59:59 CLS Outpatient EWA MORIN MD [facility] RAD SCREENING MAMMOGRAM [id number] 06/26/2016 09:41:00 06/26/2016 23:59:59 CLS Outpatient EWA MORIN MD [facility] RAD XR RT WRIST [id number] 01/02/2016 21:27:00 01/03/2016 17:04:00 DIS Inpatient EWA MORIN MD [facility] CSD [id number] 07/26/2015 11:32:00 07/26/2015 23:59:59 CLS Outpatient PATIENCE OLIVEROS [facility] [id number] 01/24/2017 10:56:00 Document Registration [id number] 01/24/2017 10:56:00 Document Registration [id number] 07/20/2015 12:22:00 Document Registration [id number] 07/20/2015 12:22:00 Document Registration [id number] 06/01/2012 08:40:00 Document Registration [id number] 11/14/2011 18:43:00 Document Registration
[2017-10-26] MEDS ORDERED: fentaNYL INJECTION 100 MCG/2 ML AMP IVP ONE (08:00)
[2017-10-26] MEDS ORDERED: NS IV 1000 ML 1,000 ML IV SCH (08:00)
--- NOTE | 2017-10-26 08:04 | ED EENT ---
History of Present Illness General Chief Complaint: Oral/Throat Problems Stated Complaint: SORE THROAT Nursing Triage Note: PT C/O SORE THROAT SINCE THIS AM. PT IS AFEBRILE Source: patient, family Exam Limitations: no limitations History of Present Illness Time seen by provider: 07:55 Initial Comments 47-year-old white female presents with severe sore throat that began last night. Patient has had one similar episode in the past secondary strep. Patient denies history of previous mononucleosis. Patient has had extreme difficulty in swallowing. She has had no difficulty handling her airway. Patient's had no associated productive cough, vomiting, diarrhea, headache or stiff neck. She denies photophobia. Patient is complaining of a sharp nonradiating pain to her posterior oropharynx. Allergies and Home Medications Allergies Coded Allergies: codeine (Verified Allergy, Intermediate, GI UPSET/NUMBNESS IN ARMS, ) Home Medications Famotidine 20 Mg Tablet, 20 MG PO BID, #20 Ref 0 Prescribed by: DELMAR GONSALVES on 10/14/172102 Meloxicam 15 Mg Tablet, 15 MG PO DAILY, (Reported) Methylprednisolone 4 Mg Tab.ds.pk, 4 MG PO UD, #1 Prescribed by: FABIANA OLIVAS on 08/24/171939 Prednisone 20 Mg Tab, 40 MG PO DAILY, #10 Ref 0 Prescribed by: DELMAR GONSALVES on 10/14/172102 Simvastatin 10 Mg Tablet, 10 MG PO HS, (Reported) Review of Systems Constitutional: No chills, No fever Eyes: Denies Blurred Vision, Denies Photophobia Ears: Denies Dizziness Nose: denies congestion, denies epistaxis Mouth: other (there is diffuse inflammation of the patient's oral pharynx including the uvula.) Throat: see HPI, pain, denies swelling, denies neck stiffness Respiratory: No cough Cardiovascular: No chest pain Gastrointestinal: No diarrhea, No nausea, No vomiting Musculoskeletal: No back pain Skin: No rash Neurological: No Symptoms Reported Hematologic/Lymphatic: No Symptoms Reported Immunological/Allergic: no symptoms reported Past Rdugufd-Effrin-Xqejcq Hx Patient Social History Alcohol Use: Denies Use Recreational Drug Use: No Smoking Status: Former Smoker Former Smoker, Quit: Jan 24, 1994 2nd Hand Smoke Exposure: No Recent Foreign Travel: No Contact w/Someone Who Travel: No Recent Infectious Disease Expo: No Recent Hopitalizations: No Immunizations Up To Date Tetanus Booster (TDap): Less than 5yrs PED Vaccines UTD: No Date of Influenza Vaccine: Aug 19, 2016 Seasonal Allergies Seasonal Allergies: No Surgeries History of Surgeries: Yes (RIGHT HAND CYST REMOVED, lymph node biopsy right axilla) Surgeries: Section, Gallbladder Respiratory History of Respiratory Disorde: No Cardiovascular History of Cardiac Disorders: Yes Cardiac Disorders: High Cholesterol Neurological History of Neurological Disord: No Reproductive System Hx Reproductive Disorders: No Sexually Transmitted Disease: No HIV/AIDS: No Female Reproductive Disorders: Denies Gastrointestinal History of Gastrointestinal Di: No Gastrointestinal Disorders: Gall Bladder Disease Musculoskeletal History of Musculoskeletal Dis: Yes (LEFT SHOULDER/NECK PAIN) Endocrine History of Endocrine Disorders: No HEENT Loss of Vision: Bilateral Hearing Impairment: Denies Cancer History of Cancer: No Psychosocial History of Psychiatric Problem: No Integumentary History of Skin or Integumenta: No Blood Transfusions History of Blood Disorders: No Adverse Reaction to a Blood Tr: No (N/A) Reviewed Nursing Assessment Reviewed/Agree w Nursing PMH: Yes Family Medical History Significant Family History: Heart Disease, Diabetes Family Medial History: Colon cancer 19 FATHER Diabetes mellitus 19 MOTHER G8 SISTER FH: CHF (congestive heart failure) 19 FATHER 19 MOTHER FH: breast cancer 19 MOTHER Myocardial infarction 19 FATHER Thyroid disease 19 MOTHER G8 SISTER Physical Exam Vital Signs Vital Sign - Last 12Hours 10/26/17 07:40 Temp 97.5 Pulse 85 Resp 16 B/P (MAP) 140/92 (108) Pulse Ox 98 O2 Delivery Room Air General Appearance: WD/WN, moderate distress Eyes: bilateral eye normal inspection Ears: bilateral ear other (impacted wax in the right ear) Nose: normal inspection Mouth/Throat: uvula swelling, other (pharyngeal erythema. No pustules or exudates.) Neck: non-tender, full range of motion Cardiovascular: normal peripheral pulses, regular rate, rhythm Respiratory: chest non-tender, lungs clear, normal breath sounds Gastrointestinal: normal bowel sounds, non tender, soft Neurologic/Psychiatric: no motor/sensory deficits, alert, normal mood/affect Skin: normal color, warm/dry, No rash Progress/Results/Core Measures Results/Orders Lab Results Laboratory Tests Test 10/26/17 07:50 10/26/17 08:20 Range/Units Group A Streptococcus Screen NEGATIVE NEGATIVE White Blood Count 12.0 H 4.3-11.0 10^3/uL Red Blood Count 4.38 4.35-5.85 10^6/uL Hemoglobin 13.0 11.5-16.0 G/DL Hematocrit 39 35-52 % Mean Corpuscular Volume 88 80-99 FL Mean Corpuscular Hemoglobin 30 25-34 PG Mean Corpuscular Hemoglobin Concent 34 32-36 G/DL Red Cell Distribution Width 13.0 10.0-14.5 % Platelet Count 257 130-400 10^3/uL Mean Platelet Volume 9.8 7.4-10.4 FL Neutrophils (%) (Auto) 84 H 42-75 % Lymphocytes (%) (Auto) 8 L 12-44 % Monocytes (%) (Auto) 6 0-12 % Eosinophils (%) (Auto) 2 0-10 % Basophils (%) (Auto) 0 0-10 % Neutrophils # (Auto) 10.1 H 1.8-7.8 X 10^3 Lymphocytes # (Auto) 1.0 1.0-4.0 X 10^3 Monocytes # (Auto) 0.7 0.0-1.0 X 10^3 Eosinophils # (Auto) 0.2 0.0-0.3 10^3/uL Basophils # (Auto) 0.0 0.0-0.1 10^3/uL Monoscreen NEGATIVE NEGATIVE My Orders Orders - LEW CAMPOS MD Cbc With Automated Diff (10/26/17 07:53) Monotest (10/26/17 07:53) Rapid Strep A Screen (10/26/17 07:53) Fentanyl Injection (Sublimaze Injection (10/26/17 08:00) Ns Iv 1000 Ml (Sodium Chloride 0.9%) (10/26/17 08:00) Methylprednisolone Sod Succ (Solu-Medrol (10/26/17 08:15) Medications Given in ED Current Medications Medications Dose Ordered Sig/Farhat Route Start Time Stop Time Status Last Admin Dose Admin Fentanyl Citrate 50 mcg ONCE ONCE IVP 10/26/17 08:00 10/26/17 08:01 DC 10/26/17 08:15 50 MCG Vital Signs/I&O Vital Sign - Last 12Hours 10/26/17 07:40 Temp 97.5 Pulse 85 Resp 16 B/P (MAP) 140/92 (108) Pulse Ox 98 O2 Delivery Room Air Blood Pressure Mean: 108 Progress Note : Time: 09:24 Progress Note Patient was treated with IV fentanyl and Solu-Medrol. Patient strep, mono, and CBC was unremarkable. Despite the pain medications and steroids the patient was still in severe discomfort and requested that we watch her with IV fluids and further IV medications in the hospital today. was agreeable and the patient was admitted. Departure Communication (Admissions) Time/Spoke to Admitting Phy: 09:[address] Morin Impression Impression: Primary Impression: Pharyngitis Qualified Codes: J02.9 - Acute pharyngitis, unspecified Disposition: ADMITTED INPATIENT Condition: Improved Admissions Decision to Admit Reason: Admit from ER (General) Decision to Admit/Date: Oct 26, 2017 Time/Decision to Admit Time: 09:27 Departure-Patient Inst. Referrals: EWA MORIN MD (PCP/Family) Primary Care Physician LEW CAMPOS MD Oct 26, 2017 08:04
[2017-10-26] MEDS ORDERED: methylPREDNISolone 125 MG (Solu-MEDROL) VIAL IVP ONE (08:15)
[2017-10-26 08:27] LABS: BASOPHILS % (AUTO) 0 % (0-10); EOSINOPHILS # (AUTO) 0.2 10^3/uL (0.0-0.3); EOSINOPHILS % (AUTO) 2 % (0-10); LYMPHOCYTES % (AUTO) 8 % (12-44); MEAN CORPUSCULAR HEMOGLOBIN 30 PG (25-34); MEAN CORPUSCULAR HGB CONC 34 G/DL (32-36); MEAN CORPUSCULAR VOLUME 88 FL (80-99); MEAN PLATELET VOLUME 9.8 FL (7.4-10.4); MONOCYTES # (AUTO) 0.7 X 10^3 (0.0-1.0); MONOCYTES % (AUTO) 6 % (0-12); NEUTROPHILS # (AUTO) 10.1 X 10^3 (1.8-7.8); NEUTROPHILS % (AUTO) 84 % (42-75); PLATELET COUNT 257 10^3/uL (130-400); RED BLOOD COUNT 4.38 10^6/uL (4.35-5.85)
[2017-10-26] MEDS ORDERED: AZITHROMYCIN 100 MG/5 ML (ZITHROMAX) 15ML BTL PO ONE (09:45)
[2017-10-26] MEDS ORDERED: AZITHROMYCIN 200 MG/5 ML (ZITHROMAX) 30 ML PO ONE (10:00)
[2017-10-26 10:10] VITALS: BP 141/93
[2017-10-26] MEDS: NS IV 1000 ML 1,000 ML IV SCH ×2 (11:42→22:14)
[2017-10-26 11:43] VITALS: BP 138/90
[2017-10-26] MEDS: methylPREDNISolone 125 MG (Solu-MEDROL) VIAL IV SCH ×2 (11:43→17:57)
[2017-10-26] MEDS ORDERED: fentaNYL INJECTION 100 MCG/2 ML AMP IV PRN (11:45)
[2017-10-26] MEDS ORDERED: HYDROCODONE/CHLOR 10MG/5 ML (TUSSIONEX SUSP) 5ML UDC PO PRN (11:45)
[2017-10-26] MEDS ORDERED: HYDROcodone/APAP 7.5MG-325 MG/15 ML (LORTAB) UDC PO PRN (12:00)
[2017-10-26] MEDS ORDERED: SIMV10TA3 PO (12:27)
[2017-10-26] MEDS ORDERED: MELO15TA39 PO (12:27)
[2017-10-26] MEDS ORDERED: ACET-93 PO (12:30)
[2017-10-26] MEDS ORDERED: IBUP-2055 PO (12:30)
--- NOTE | 2017-10-26 13:31 | History & Physicial ---
History of Present Illness History of Present Illness Reason for visit/HPI 47-year-old female presents to [facility] emergency department with reports of severe sore throat that began last night. She is having a very difficult time swallowing. She also believes she has been running a fever. She has been working around other individuals who have some sort of respiratory infection she states. She rated the pain a 10 over 10 in the emergency room. She has had strep throat in the past but no mononucleosis. At this time she has no reports of a headache or neck pain. Date of Admission Oct 26, 2017 at 09:37 Date Seen by Provider: Oct 26, 2017 Time Seen by Provider: 14:00 I consulted on this patient on 10/26/17 13:26 Attending Physician Ewa Morin MD Admitting Physician Ewa Morin MD Consult Allergies and Home Medications Allergies Coded Allergies: codeine (Verified Allergy, Intermediate, GI UPSET/NUMBNESS IN ARMS, ) Home Medications Acetaminophen 500 Mg Tablet, 1,000 MG PO Q4H PRN for PAIN-MILD, (Reported) TAKES 2 (500 MG) TABLETS / ALTERNATES WITH IBUPROFEN Ibuprofen 200 Mg Tablet, 400 MG PO Q4H PRN for PAIN-MILD, (Reported) TAKES 2 (200 MG) TABLETS / ALTERNATES WITH ACETAMINOPHEN Meloxicam 15 Mg Tablet, 15 MG PO DAILY, (Reported) Simvastatin 10 Mg Tablet, 10 MG PO HS, (Reported) Past Ppzgahl-Ibrwpv-Fzqukk Hx Patient Social History Marrital Status: Number of Children: 4 Alcohol Use: Denies Use Recreational Drug Use: No Smoking Status: Former Smoker Former Smoker, Quit: Jan 24, 1994 Type Used: Cigarettes 2nd Hand Smoke Exposure: No Physical Abuse Screen: No Sexual Abuse: No Recent Foreign Travel: No Contact w/other who traveled: No Recent Hopitalizations: No Recent Infectious Disease Expo: No Immunizations Up To Date Tetanus Booster (TDap): Less than 5yrs Pediatric: No Date of Influenza Vaccine: Aug 10, 2017 Seasonal Allergies Seasonal Allergies: No Surgeries Yes (RIGHT HAND CYST REMOVED, lymph node biopsy right axilla) Section, Gallbladder Respiratory No Cardiovascular Yes High Cholesterol Neurological No Reproductive System Hx Reproductive Disorders: No Sexually Transmitted Disease: No HIV/AIDS: No Female Reproductive Disorders: Denies Gastrointestinal No Gall Bladder Disease Musculoskeletal Yes (LEFT SHOULDER/NECK PAIN) Endocrine History of Endocrine Disorders: No HEENT Loss of Vision: Bilateral Hearing Impairment: Denies Cancer No Psychosocial History of Psychiatric Problem: No Integumentary History of Skin or Integumenta: No Blood Transfusions History of Blood Disorders: No Adverse Reaction to a Blood Tr: No (N/A) Reviewed Nursing Assessment Reviewed/Agree w Nursing PMH: Yes Family Medical History Significant Family History: Heart Disease, Diabetes Family Hx: Colon cancer 19 FATHER Diabetes mellitus 19 MOTHER G8 SISTER FH: CHF (congestive heart failure) 19 FATHER 19 MOTHER FH: breast cancer 19 MOTHER Myocardial infarction 19 FATHER Thyroid disease 19 MOTHER G8 SISTER Constitutional: see HPI Physical Exam Vital Signs Vital Sign - Last 12Hours 10/26/17 07:40 Temp 97.5 Pulse 85 Resp 16 B/P (MAP) 140/92 (108) Pulse Ox 98 O2 Delivery Room Air Capillary Refill : Less Than 3 Seconds General Appearance: Mild Distress Eyes: Bilateral Eye Normal Inspection HEENT: Moist Mucous Membranes, Pharyngeal Erythema Neck: Full Range of Motion, Supple Respiratory: Lungs Clear Cardiovascular: Regular Rate, Rhythm Gastrointestinal: Soft Rectal: Deferred Back: Normal Inspection Skin: Normal Color Assessment/Plan Assessment and Plan 1. Pharyngitisand currently negative for strep by screen and mono -She is admitted for observation status due to the inability to swallow -throat will be cultured -she will be covered for bacterial source with Zithromax. She is allergic to the penicillins 2. Severe pain with dysphagia -Patient admitted for observation and IV pain control. Problems: Admission Diagnosis 1. Pharyngitissevere with negative for strep and mono 2. Severe pain with dysphagia Clinical Quality Measures DVT/VTE Risk/Contraindication: Risk Factor Score Per Nursin RFS Level Per Nursing on Admit: 2=Moderate EWA MORIN MD Oct 26, 2017 13:31
[2017-10-26 15:29] VITALS: BP 121/71
[2017-10-26 20:10] VITALS: BP 135/76
[2017-10-27 00:05] VITALS: BP 128/76
[2017-10-27] MEDS: methylPREDNISolone 125 MG (Solu-MEDROL) VIAL IV SCH ×2 (00:09→06:24)
[2017-10-27 04:05] VITALS: BP 122/57
[2017-10-27 05:27] LABS: BASOPHILS % (AUTO) 0 % (0-10); EOSINOPHILS % (AUTO) 0 % (0-10); LYMPHOCYTES # (AUTO) 0.5 X 10^3 (1.0-4.0); LYMPHOCYTES % (AUTO) 3 % (12-44); MEAN CORPUSCULAR HEMOGLOBIN 30 PG (25-34); MEAN CORPUSCULAR HGB CONC 33 G/DL (32-36); MEAN CORPUSCULAR VOLUME 89 FL (80-99); MONOCYTES # (AUTO) 0.1 X 10^3 (0.0-1.0); MONOCYTES % (AUTO) 1 % (0-12); NEUTROPHILS # (AUTO) 16.3 X 10^3 (1.8-7.8); NEUTROPHILS % (AUTO) 96 % (42-75); PLATELET COUNT 244 10^3/uL (130-400); RED BLOOD COUNT 4.17 10^6/uL (4.35-5.85); RED CELL DISTRIBUTION WIDTH 12.7 % (10.0-14.5)
[2017-10-27 05:46] LABS: BAND NEUTROPHILS 5 %; LYMPHOCYTES % (MANUAL) 1 %; NEUTROPHILS % (MANUAL) 92 %
[2017-10-27 05:57] LABS: ALANINE AMINOTRANSFERASE 45 U/L (0-55); ALBUMIN 3.8 GM/DL (3.2-4.5); ANION GAP 8 MMOL/L (5-14); ASPARTATE AMINO TRANSFERASE 19 U/L (5-34); BILIRUBIN,TOTAL 0.3 MG/DL (0.1-1.0); BLOOD UREA NITROGEN 9 MG/DL (7-18); BUN/CREATININE RATIO 16; CALCIUM 8.4 MG/DL (8.5-10.1); CARBON DIOXIDE 22 MMOL/L (21-32); CHLORIDE 112 MMOL/L (98-107); CREATININE SERUM 0.57 MG/DL (0.60-1.30); GFR ESTIMATED > 60; GLUCOSE 175 MG/DL (70-105); POTASSIUM 3.4 MMOL/L (3.6-5.0); SODIUM 142 MMOL/L (135-145); TOTAL PROTEIN 6.8 GM/DL (6.4-8.2)
--- NOTE | 2017-10-27 07:34 | Discharge Summary ---
Diagnosis/Chief Complaint Date of Admission Oct 26, 2017 at 09:37 Date of Discharge October 27, 2017 Discharge Date: Oct 27, 2017 Discharge Time: 08:00 Admission Diagnosis Admission Diagnosis 1. Pharyngitisand currently negative for strep by screen and mono 2. Severe pain with dysphagia Discharge Diagnosis 1. Streptococcus group A pharyngitis 2. Dysphasia due to number 1 Reason Hospital Visit 47-year-old female presents to [facility] emergency department with reports of severe sore throat that began last night. She is having a very difficult time swallowing. She also believes she has been running a fever. She has been working around other individuals who have some sort of respiratory infection she states. She rated the pain a 10 over 10 in the emergency room. She has had strep throat in the past but no mononucleosis. At this time she has no reports of a headache or neck pain. Discharge Summary Hospital Course Hospital Course 47-year-old female who was admitted for observation during the afternoon of October 26 due to severe pharyngitis with unable to swallow. At that time it was determined she was negative for mononucleosis and the strep screen was also negative. She was placed in hospital for further supportive care with IV fluids. She was also given IV Solu-Medrol 125 mg every 6 hours. She had also received fentanyl 50 mg for pain relief if needed every 3 hours. Patient was started also on Zithromax liquid since she has allergies to penicillin products. Throughout the evening of October 26 and field secretary of October 27 patient reports she was able to swallow. It was at this time she was felt ready for dismissal and to finish her course of therapy outpatient. All questions answered. Labs Laboratory Tests 10/26/17 07:50: 10/26/17 08:20: White Blood Count 12.0H, Neutrophils (%) (Auto) 84H, Lymphocytes (%) (Auto) 8L, Neutrophils # (Auto) 10.1H 10/27/17 04:50: White Blood Count 17.0H, Neutrophils (%) (Auto) 96H, Lymphocytes (%) (Auto) 3L, Neutrophils # (Auto) 16.3H, Red Blood Count 4.17L, Lymphocytes # (Auto) 0.5L, Potassium Level 3.4L, Chloride Level 112H, Creatinine 0.57L, Glucose Level 175H , Calcium Level 8.4L Procedures None. Discharge Physical Examination Allergies: Coded Allergies: codeine (Verified Allergy, Intermediate, GI UPSET/NUMBNESS IN ARMS, ) Vitals & I&Os Vital Signs Date Time Temp Pulse Resp B/P (MAP) Pulse Ox O2 Delivery O2 Flow Rate FiO2 10/27/17 04:05 97.4 95 20 122/57 (78) 93 Room Air General Appearance: No Acute Distress HEENT: Other (less pharyngeal erythema) Respiratory: Clear to Auscultation Cardiovascular: Regular Rate Abdominal: Soft Discharge Home Medications Reviewed and agree with Discharge Medication list on patient's Discharge Instruction sheet Instructions to Patient/Family Please see electronic discharge instructions given to patient. Clinical Quality Measures DVT/VTE Risk/Contraindication: Risk Factor Score Per Nursin RFS Level Per Nursing on Admit: 2=Moderate EWA MORIN MD Oct 27, 2017 07:34
[2017-10-27] MEDS ORDERED: AZIT250T PO (07:39)
--- NOTE | 2017-10-27 07:40 | Discharge Inst-Simple/Standard ---
Discharge Inst-Standard Discharge Medications New, Converted or Re-Newed RX: Transmitted to Pharmacy Patient Instructions/Follow Up Plan of Care/Instructions/FU: With Dr. Morin on October 29 or Activity as Tolerated: Yes Discharge Diet: Low Fat/Low Cholesterol Return to The Hospital For: Unable to swallow EWA MORIN MD Oct 27, 2017 07:40
[2017-10-27] MEDS: NS IV 1000 ML 1,000 ML IV SCH (07:59)
[2017-10-27 08:50] VITALS: BP 118/80
[2017-10-27] MEDS ORDERED: AZITHROMYCIN 200 MG/5 ML (ZITHROMAX) 30 ML PO SCH (09:00)
[2017-10-27 12:40] VITALS: BP 118/80
== END 2017-10-27 07:34 | disposition home or self-care (01) ==
LOC: EDUNIT# 07:15 → ER 07:17 → UNDOADMOB 09:37 → 4TH 09:37 → UNDODISOB 10-27 07:34
PROVIDERS: ADMIT Family Medicine; ATTEND Family Medicine
DX: J02.0 Streptococcal pharyngitis (principal); R13.10 Dysphagia, unspecified; Z88.0 Allergy status to penicillin; Z88.5 Allergy status to narcotic agent; E78.00 Pure hypercholesterolemia, unspecified; Z87.891 Personal history of nicotine dependence
CPT/HCPCS: 36415; 80053; 85007; 85025; 85027; 86308; 87430; 96361; 96374; 96375; 99211; G0378

== ENCOUNTER 2017-10-30 09:11 | Outpatient (CLI) | payer OTHER, MEDICAID ==
[~2017-10-30] VITALS: Ht 170.2 cm; Wt 104.1 kg
[~2017-10-30 09:11] MED LIST changes: +ACET-93 PO; +AZIT250T PO; +IBUP-2055 PO
== END 2017-10-30 09:20 ==
LOC: PREOP 09:11
PROVIDERS: ATTEND Surgery
DX: Z01.818 Encounter for other preprocedural examination (principal); E66.01 Morbid (severe) obesity due to excess calories; Z68.35 Body mass index [BMI] 35.0-35.9, adult

== ENCOUNTER 2017-11-06 12:58 | Inpatient (IN) | payer OTHER, MEDICAID ==
[~2017-11-06] VITALS: Ht 170.2 cm; Wt 104.1 kg
[2017-11-06] MEDS ORDERED: LACTATED RINGERS 1,000 ML IV PRN ×2 (13:17)
[2017-11-06 13:26] VITALS: BP 123/80
[2017-11-06] MEDS ORDERED: ONDANSETRON 4 MG/2 ML (SDV) Z0FRAN IV ONE (13:30)
[2017-11-06] MEDS ORDERED: ceFAZolin INJECTION 1,000 MG in NS (IVPB) 50 ML IV ONE (13:30)
[2017-11-06] MEDS ORDERED: CATHETER FLUSH 10 ML SYR IV PRN (13:30)
[2017-11-06] MEDS ORDERED: FAMOTIDINE 20MG/2ML IV (PEPCID) IV ONE (13:30)
[2017-11-06] MEDS ORDERED: ceFAZolin 1 GM/NS 50 ML IVPB IV ONE ×2 (13:30)
[2017-11-06] MEDS ORDERED: MIDAZOLAM 2 MG/2 ML (VERSED) VIAL IV ONE (13:30)
[2017-11-06] MEDS ORDERED: SCOPOLAMINE 1.5 MG (TRANSDERM-SCOP) PATCH TOP ONE (13:30)
--- NOTE | 2017-11-06 14:07 | Progress Note-Pre Operative ---
Pre-Operative Progress Note H&P Reviewed The H&P was reviewed, patient examined and no changes noted. Date Seen by Provider: Nov 06, 2017 Time Seen by Provider: 14:00 Date H&P Reviewed: Nov 06, 2017 Time H&P Reviewed: 14:00 Pre-Operative Diagnosis: morbid obesity, hypertriglyceridemia ANNEMARIE BRYANT MD Nov 06, 2017 2:07 pm
[2017-11-06] MEDS ORDERED: GLYCOPYRROLATE 0.2 MG/ML (ROBINUL) 2 ML VIAL ONE (16:09)
[2017-11-06] MEDS ORDERED: ROCURONIUM 50 MG/5 ML (ZEMURON) VIAL IV ONE (16:09)
[2017-11-06] MEDS ORDERED: DEXAMETHASONE 10 MG/ML (DECADRON) 1 ML VIAL ONE (16:09)
[2017-11-06] MEDS ORDERED: fentaNYL INJECTION 250 MCG/5 ML AMP ONE (16:09)
[2017-11-06] MEDS ORDERED: MIDAZOLAM 2 MG/2 ML (VERSED) VIAL ONE (16:09)
[2017-11-06] MEDS ORDERED: SEVOFLURANE (ULTANE) 15 ML INHAL SOLN ONE (16:09)
[2017-11-06] MEDS ORDERED: ONDANSETRON 4 MG/2 ML (SDV) Z0FRAN ONE (16:09)
[2017-11-06] MEDS ORDERED: NEOSTIGMINE (BLOXIVERZ ) 1 MG/1ML 10 ML VIAL ONE (16:09)
[2017-11-06] MEDS ORDERED: LIDOCAINE PF 2% 5 ML (XYLOCAINE) VIAL ONE (16:09)
[2017-11-06] MEDS ORDERED: proPOfol 200 MG/20 ML (DIPRIVAN) VIAL IV ONE (16:09)
[2017-11-06] MEDS ORDERED: BUP/EPI 0.5% 1:200,000 (MARCAINE) 10ML VIAL IJ ONE (16:25)
[2017-11-06] MEDS ORDERED: NS IV 1000 ML 1,000 ML IV SCH (16:25)
[2017-11-06] MEDS ORDERED: METOCLOPRAMIDE INJ 10 MG/2 ML (REGLAN) IV PRN (16:30)
[2017-11-06] MEDS ORDERED: diphenhydrAMINE 50 MG/ML INJ (BENADRYL) IV PRN (16:30)
[2017-11-06] MEDS ORDERED: diphenhydrAMINE 50 MG/ML INJ (BENADRYL) IVP PRN (16:30)
[2017-11-06] MEDS ORDERED: ONDANSETRON 4 MG/2 ML (SDV) Z0FRAN IV PRN (16:30)
[2017-11-06] MEDS ORDERED: fentaNYL INJECTION 1,000 MCG in NS (IVPB) 80 ML IV SCH (16:30)
[2017-11-06] MEDS ORDERED: NALOXONE 0.4 MG/ML 1 ML (NARCAN) VIAL IV PRN (16:30)
[2017-11-06] MEDS ORDERED: RT-ALBUTEROL SULF 2.5 MG/3 ML PRE-MIX VIAL INH SCH (16:30)
[2017-11-06] MEDS ORDERED: morphine INJ 10 MG/ML 1ML (SYR OR VIAL) ONE (17:29)
--- NOTE | 2017-11-06 18:08 | Progress Note-Post Operative ---
Post-Operative Progess Note Surgeon (s)/Metal Furniture Polisher (s) Surgeon ANNEMARIE BRYANT MD Metal Furniture Polisher: eric haney COLOR STRAINING BAG WASHER Pre-Operative Diagnosis morbid obesity, hypertriglyceridemia Post-Operative Diagnosis same Procedure & Operative Findings Date of Procedure 11/06/17 Procedure Performed/Findings laparoscopic gastric sleeve resection. Anesthesia Type GET Estimated Blood Loss Estimated blood loss (mL): minimal Specimens/Packing Specimens Removed stomach ANNEMARIE BRYANT MD Nov 06, 2017 6:08 pm
--- NOTE | 2017-11-06 18:12 | Discharge Inst-Surgical ---
D/C Lap Instructions-ANNETTE Follow Up Appt in 2 weeks Activity as tolerated No driving for 24 hours No driving while on pain medications Incentive Spirometry use every 2 hours while awake Phase 1 clear liquid diet 2 weeks. Symptoms to Report: Fever over 101 degree F, Nausea/Vomiting Infection Signs and Symptoms to report: Increased redness, Foul odor of wound, Increased drainage Bathing instructions: May shower Operative Area Clean/Dry; Keep incision clean/dry If any problems/questions: Contact your physician or go to Emergency Room ANNEMARIE BRYANT MD Nov 06, 2017 6:12 pm
[2017-11-06] MEDS: morphine INJ 10 MG/ML 1ML (SYR OR VIAL) IVP PRN ×2 (18:22→18:40)
[2017-11-06] MEDS ORDERED: HYDROmorphone (DILAUDID) 2 MG/ML VIAL IVP PRN (18:30)
[2017-11-06] MEDS ORDERED: MEPERIDINE (DEMEROL) INJ 50 MG/ML IVP PRN (18:30)
[2017-11-06] MEDS ORDERED: PROMETHAZINE INJ 25 MG/ML (PHENERGAN) AMP IVP PRN (18:30)
[2017-11-06] MEDS ORDERED: ONDANSETRON 4 MG/2 ML (SDV) Z0FRAN IVP PRN (18:30)
[2017-11-06 19:25] VITALS: BP 118/64
[2017-11-06] MEDS ORDERED: oxyCODONE 5 MG/5 ML ORAL SOLN (roxiCODONE) 5 ML UDC PO PRN (20:15)
[2017-11-06] MEDS: ENOXAPARIN 30 MG/0.3 ML (LOVENOX) SYR SC SCH (21:02)
[2017-11-06] MEDS: 1/2 NS W/KCL 20 MEQ/L 1,000 ML IV SCH (21:02)
[2017-11-06] MEDS: metroNIDAZOLE 500MG/100ML IVPB 100 ML IV SCH (21:28)
[2017-11-06] MEDS: RT-ALBUTEROL SULF 2.5 MG/3 ML PRE-MIX VIAL INH SCH (22:56)
--- NOTE | 2017-11-06 23:35 | OPERATIVE REPORT ---
DATE OF SERVICE: 11/06/2017 ATTENDING PRIMARY CARE PHYSICIAN: Behzad Hinojosa MD. PREOPERATIVE DIAGNOSES: Morbid obesity, hypertriglyceridemia. POSTOPERATIVE DIAGNOSES: Morbid obesity, hypertriglyceridemia. PROCEDURE: Laparoscopic gastric sleeve resection. SURGEON: Annemarie Bryant MD. TISSUE TECHNICIAN: Arturo Busch APRN. ANESTHESIA: General endotracheal. ESTIMATED BLOOD LOSS: Minimal. FINDINGS: Mild hepatomegaly, surgically absent gallbladder. The remainder of the stomach, omentum, small bowel appeared normal. DISPOSITION: The patient tolerated the procedure well. The patient is a 47-year-old female, who is in our surgical weight loss program for the laparoscopic gastric sleeve resection. She states gaining the majority of her weight after having her third child greater than 10 years ago. She states that she has struggled with weight. She has tried a number of diet and exercise attempts with no success. She has tried dieting programs including low-calorie low-carbohydrate diets as well as high protein diets, [place]bonne diet, SlimFast and Weight Watchers with no success. She has also tried a multitude of exercise programs including walking, stationary bike, treadmill as well as aerobic exercise classes, again with no success. Her medical comorbidity related to her obesity includes hypertriglyceridemia. DESCRIPTION OF PROCEDURE: The patient was brought to the operating room, laid supine on the table. After adequate IV pain and sedating medications and general endotracheal intubation, the abdomen was prepped and draped in a standard surgical fashion. Marcaine 0.5% with epinephrine was used to anesthetize the overlying skin in the left upper abdominal quadrant and a transverse skin incision was made using a 15 blade. An 0 silk suture was applied to the medial aspect of the incision for retraction and a Veress needle inserted with a low opening pressure of 0 mmHg and the abdomen was then insufflated to 15 mmHg pressure. The Veress needle removed and a 5 mm Xcel trocar placed followed by a 5 mm 45 degree angle laparoscope visualizing the peritoneal cavity. A four-quadrant abdominal exploration was performed. There was mild hepatomegaly and a surgically absent gallbladder. There was no hiatal hernia identified and the stomach, omentum and small bowel appeared normal. Under direct visualization, we then proceeded to place a midabdominal left of midline 10 mm port after the skin and the peritoneal lining were anesthetized using 0.5% Marcaine with epinephrine and a transverse skin incision made using a 15 blade. In a similar manner, a midabdominal right of midline 15 mm port was placed followed by a right upper abdominal quadrant 5 mm port. The epigastric region was then anesthetized and a transverse skin incision was made using an 11 blade. A tract was then created through the abdominal wall layers using a trocar to a 5 mm port and through this opening a medium size Nathansen liver retractor was placed and the left lobe of the liver retracted anteriorly and superiorly. The patient was then placed in steep reverse Trendelenburg position. We then measured 6 cm from the pylorus along the greater curvature marked this with a marking pen. The gastrocolic ligament was then opened next to the stomach and the lesser sac entered. We first proceeded with inferior caudal dissection until we were approximately 2 cm below a marking using the Sonicision with visualization of good hemostasis. We then proceeded cephalad taking on all the short gastric vessels as well as angle of His connective tissue fibers and the posterior stomach in this region as well. Good hemostasis was observed. A 42-English bougie was then placed under direct visualization and the tip guided into the pylorus. We used this as our guide for our gastric sleeve resection. We first proceeded with a RYAN 45 mm polyglycolic acid lined stapler 2 cm below our marking. We then proceeded with a 60 mm black reload followed by three 60 mm purple loads completing our gastric resection and leaving 2 cm of the gastroesophageal junction intact. Good hemostasis was observed. The staple line edges were then clipped with 5 mm clips. Tisseel fibrin glue was then placed on the suture line and the omentum placed on to the staple line. The bougie was then removed as was the liver retractor. The stomach was removed through the 15 mm port site. The 15 and 10 mm port site fascia and peritoneum were then closed under direct visualization using a Ywa-Jeri device and an 0 Vicryl suture. The abdomen was desufflated and remaining ports were removed. All skin incisions were closed using 4-0 Monocryl running subcuticular sutures. Wounds were then cleaned and covered with Dermabond. The patient tolerated the procedure well. We will admit her to the floor. We will proceed with pain control with a ACCESS SPEC pump. We will also proceed with DVT prophylaxis with early ambulation, calf SCDs as well as Lovenox injections b.i.d. Tomorrow morning, we will start the patient on clear liquid diet and once she is tolerating at least 60 mL every half hour, has adequate pain control with oral pain medication and is ambulating well, we will discharge her home. She will be instructed to do no heavy lifting or exertion as well as to follow a baseline clear liquid diet for the next 2 weeks. Job ID: [id number] DocumentID: [id number] Dictated Date: 11/06/2017 18:22:30 [employer] Date: 11/06/2017 23:34:04 Dictated By: ANNEMARIE BRYANT MD
[2017-11-06] MEDS: ceFAZolin 2 GM/50 ML NS 50 ML IV SCH (23:55)
[2017-11-07] VITALS: BP 121/84
[2017-11-07] MEDS: METOCLOPRAMIDE INJ 10 MG/2 ML (REGLAN) IVP SCH ×3 (01:26→11:44)
[2017-11-07] MEDS: ONDANSETRON 4 MG/2 ML (SDV) Z0FRAN IVP SCH ×3 (01:26→11:44)
[2017-11-07] MEDS: 1/2 NS W/KCL 20 MEQ/L 1,000 ML IV SCH ×3 (01:28→14:04)
[2017-11-07] MEDS: metroNIDAZOLE 500MG/100ML IVPB 100 ML IV SCH ×2 (03:33→11:45)
[2017-11-07] MEDS: RT-ALBUTEROL SULF 2.5 MG/3 ML PRE-MIX VIAL INH SCH ×4 (04:10→15:32)
[2017-11-07 04:12] VITALS: BP 122/68
[2017-11-07 06:52] LABS: HEMOGLOBIN 12.2 G/DL (11.5-16.0); MEAN PLATELET VOLUME 10.4 FL (7.4-10.4); RED BLOOD COUNT 4.18 10^6/uL (4.35-5.85); RED CELL DISTRIBUTION WIDTH 12.6 % (10.0-14.5); WHITE BLOOD COUNT 14.5 10^3/uL (4.3-11.0)
[2017-11-07 06:57] LABS: BUN/CREATININE RATIO 14; CALCIUM 8.7 MG/DL (8.5-10.1); CARBON DIOXIDE 19 MMOL/L (21-32); CHLORIDE 108 MMOL/L (98-107); CREATININE SERUM 0.65 MG/DL (0.60-1.30); GFR ESTIMATED > 60; GLUCOSE 118 MG/DL (70-105); POTASSIUM 4.5 MMOL/L (3.6-5.0); SODIUM 138 MMOL/L (135-145)
[2017-11-07] MEDS: ceFAZolin 2 GM/50 ML NS 50 ML IV SCH ×2 (07:46→16:42)
[2017-11-07 08:00] VITALS: BP 148/71
[2017-11-07] MEDS ORDERED: PANTOPRAZOLE 40 MG/10 ML (PROTONIX) VIAL IV SCH (09:00)
[2017-11-07] MEDS ORDERED: SENNA W/DOCUSATE (SENOKOT S) TABLET PO SCH (09:00)
[2017-11-07] MEDS: ENOXAPARIN 30 MG/0.3 ML (LOVENOX) SYR SC SCH (09:37)
--- NOTE | 2017-11-07 10:09 | Anesthesia-General Post-Op ---
General Patient Condition Mental Status/LOC: Same as Preop Cardiovascular: Satisfactory Nausea/Vomiting: Absent Respiratory: Satisfactory Pain: Controlled Complications: Absent Post Op Complications Complications None Follow Up Care/Instructions Patient Instructions None needed. Anesthesia/Patient Condition Patient Condition Patient is doing well, no complaints, stable vital signs, no apparent adverse anesthesia problems. No complications reported per nursing. KARTHIKEYAN RAUSCH CRNA Nov 07, 2017 10:09
[2017-11-07 12:04] VITALS: BP 142/76
--- NOTE | 2017-11-07 13:46 | Progress Note (SOAP) ---
Subjective Date Seen by Provider: Nov 07, 2017 Time Seen by Provider: 13:30 Subjective/Events-last exam doing well. tolerating phase 1 clear liquids with nausea and pain controlled. ambulating well. Objective Exam Vital Signs Date Time Temp Pulse Resp B/P (MAP) Pulse Ox O2 Delivery O2 Flow Rate FiO2 11/07/17 12:04 98.5 62 18 142/76 (98) 95 Nasal Cannula 2.00 11/07/17 08:00 98.4 65 18 148/71 (96) 100 Nasal Cannula 2.00 11/07/17 06:58 98 Nasal Cannula 3.00 11/07/17 06:00 18 11/07/17 04:12 97.1 64 18 122/68 (86) 95 Nasal Cannula 2.00 11/07/17 02:25 98 Nasal Cannula 3.00 11/07/17 00:00 97.1 63 17 121/84 (96) 96 Nasal Cannula 2.00 11/06/17 22:56 98 Nasal Cannula 3.00 11/06/17 19:36 Nasal Cannula 3.00 11/06/17 19:25 97.2 79 18 118/64 (82) 96 Nasal Cannula 2.00 I & O 11/07/17 07:00 Intake Total 1290 ml Output Total 1150 ml Balance 140 ml Capillary Refill : General Appearance: No Apparent Distress HEENT: PERRL/EOMI Neck: Full Range of Motion Respiratory: Chest Non Tender, Lungs Clear, Normal Breath Sounds Cardiovascular: Regular Rate, Rhythm Gastrointestinal: soft, tenderness Extremity: Normal Capillary Refill Neurologic/Psychiatric: Alert, Oriented x3 Skin: Normal Color Lymphatic: No Adenopathy Results Lab Laboratory Tests 11/07/17 06:30: White Blood Count 14.5H, Red Blood Count 4.18L, Hemoglobin 12.2, Hematocrit 37, Mean Corpuscular Volume 88, Mean Corpuscular Hemoglobin 29, Mean Corpuscular Hemoglobin Concent 33, Red Cell Distribution Width 12.6, Platelet Count 236, Mean Platelet Volume 10.4, Sodium Level 138, Potassium Level 4.5, Chloride Level 108H, Carbon Dioxide Level 19L, Anion Gap 11, Blood Urea Nitrogen 9, Creatinine 0.65, Estimat Glomerular Filtration Rate > 60, BUN/Creatinine Ratio 14, Glucose Level 118H, Calcium Level 8.7 Assessment/Plan Assessment/Plan Assess & Plan/Chief Complaint s/p laparoscopic gastric sleeve gastrectomy. ambulate. continue phase 1 clear liquids for 2 weeks. home soon. ANNEMARIE BRYANT MD Nov 07, 2017 1:46 pm
[2017-11-07 16:00] VITALS: BP 104/55
[2017-11-07] MEDS ORDERED: ONDANSETRON 4 MG/2 ML (SDV) Z0FRAN IVP PRN (16:30)
[2017-11-07] MEDS ORDERED: METOCLOPRAMIDE INJ 10 MG/2 ML (REGLAN) IVP PRN (16:30)
== END 2017-11-07 18:05 | disposition home or self-care (01) | DRG 621 ==
LOC: SURGICAL 12:58 → SURG 12:59 → 4TH 19:55
PROVIDERS: ADMIT Surgery; ATTEND Surgery
PROC: 0DB64Z3 Excision of Stomach, Percutaneous Endoscopic Approach, Vertical (ICD-10-PCS; principal; 2017-11-06 16:33)
DX: E66.01 Morbid (severe) obesity due to excess calories (principal); Z68.35 Body mass index [BMI] 35.0-35.9, adult; E78.1 Pure hyperglyceridemia; Z87.891 Personal history of nicotine dependence
CPT/HCPCS: 36415; 80048; 84703; 85027; 87081; 94640; 94664; 94760

== ENCOUNTER 2018-01-13 18:34 | Emergency (ER) | payer OTHER, MEDICAID ==
[~2018-01-13] VITALS: Ht 170.2 cm; Wt 86.2 kg
--- OUTSIDE RECORDS SUMMARY | 2018-01-13 18:40 | XMS REPORT | Continuity of Care Document ---
Author Author [facility] Organization [facility] Address Unknown Phone Unavailable Allergies Active Description Code Type Severity Reaction Onset Reported/Identified Relationship to Patient Clinical Status Yes codeine [id number] Drug Allergy Unknown N/A 11/10/2006 Yes codeine [id number] Drug Allergy Moderate GI UPSET/NUMBNE 10/30/2017 Medications There is no data. Problems Date [...] RIGHT UPPER QUADRANT PAIN 02/27/2017 FABIANA OLIVAS [employer] Ot Z90.49 ACQUIRED ABSENCE OF OTHER SPECIFIED PART 02/28/2017 FABIANA OLIVAS [employer] Ot R10.11 RIGHT UPPER QUADRANT PAIN 02/28/2017 FABIANA OLIVAS [employer] Ot Z90.49 ACQUIRED ABSENCE OF OTHER SPECIFIED [...] GASTRO-ESOPHAGEAL REFLUX DISEASE WITHOUT 08/30/2017 EWA MORIN MD Ot Z12.31 ENCNTR SCREEN [...] GASTRO-ESOPHAGEAL REFLUX DISEASE WITHOUT 10/14/2017 EWA MORIN MD Ot Z12.31 ENCNTR SCREEN MAMMOGRAM FOR MALIGNANT NE 10/14/2017 DELMAR HERNANDEZ Ot E78.00 PURE HYPERCHOLESTEROLEMIA, UNSPECIFIED 10/14/2017 DELMAR HERNANDEZ Ot L23.9 ALLERGIC CONTACT DERMATITIS, UNSPECIFIED 10/14/2017 DELMAR HERNANDEZ Ot R21 RASH AND OTHER NONSPECIFIC SKIN ERUPTION 10/14/2017 DELMAR HERNANDEZ Ot Z80.3 FAMILY HISTORY OF MALIGNANT NEOPLASM OF 10/14/2017 DELMAR HERNANDEZ Ot Z82.49 FAMILY HX OF ISCHEM HEART DIS AND OTH DI 10/14/2017 DELMAR HERNANDEZ Ot Z87.59 PERSONAL HISTORY OF COMP OF PREG, CHLDBR 10/14/2017 DELMAR HERNANDEZ Ot Z87.891 PERSONAL HISTORY OF NICOTINE DEPENDENCE 10/15/2017 DELMAR HERNANDEZ Ot E78.00 PURE HYPERCHOLESTEROLEMIA, [...] Ot Z87.891 PERSONAL HISTORY OF NICOTINE DEPENDENCE 10/27/2017 EWA MORIN MD Ot E78.00 PURE HYPERCHOLESTEROLEMIA, UNSPECIFIED 10/27/2017 EWA MORIN MD, Ot J02.0 STREPTOCOCCAL PHARYNGITIS 10/27/2017 EWA MORIN MD, Ot R13.10 DYSPHAGIA, UNSPECIFIED 10/27/2017 EWA MORIN MD, Ot Z87.891 PERSONAL HISTORY OF NICOTINE DEPENDENCE 10/27/2017 EWA MORIN MD, Ot Z88.0 ALLERGY STATUS TO PENICILLIN 10/27/2017 EWA MORIN MD, Ot Z88.5 ALLERGY STATUS TO NARCOTIC AGENT STATUS 10/30/2017 ANNEMARIE BRYANT MD, Ot E66.01 MORBID (SEVERE) OBESITY DUE TO EXCESS CA 10/30/2017 ANNEMARIE BRYANT MD, Ot Z01.818 ENCOUNTER FOR OTHER PREPROCEDURAL EXAMIN 10/30/2017 ANNEMARIE BRYANT MD, Ot Z68.35 BODY MASS INDEX (BMI) 35.0-35.9, ADULT 11/07/2017 ANNEMARIE BRYANT MD, Ot E66.01 MORBID (SEVERE) OBESITY DUE TO EXCESS CA 11/07/2017 ANNEMARIE BRYANT MD, Ot E78.1 PURE HYPERGLYCERIDEMIA 11/07/2017 ANNEMARIE BRYANT MD, Ot Z68.35 BODY MASS INDEX (BMI) 35.0-35.9, ADULT 11/07/2017 ANNEMARIE BRYANT MD, Ot Z87.891 PERSONAL HISTORY OF NICOTINE DEPENDENCE 11/08/2017 ANNEMARIE BRYANT MD, Ot E66.01 MORBID (SEVERE) OBESITY DUE TO EXCESS CA 11/08/2017 ANNEMARIE BRYANT MD, Ot Z01.818 ENCOUNTER FOR OTHER PREPROCEDURAL EXAMIN 11/08/2017 ANNEMARIE BRYANT MD, Ot Z68.35 BODY MASS INDEX (BMI) 35.0-35.9, ADULT Procedures Code Description Performed By Performed On [id number] EXCISION OF STOMACH, PERCUTANEOUS ENDOSC 11/06/2017 Results Test Result Range Complete blood count [...] by light microscopy FEW IDA PHOSPHATE NRG Streptococcus pyogenes antigen detection - 10/26/17 07:50 Streptococcus pyogenes antigen detection NEGATIVE NEGATIVE Bacterial throat culture - 10/26/17 07:50 Bacterial throat culture [id number] NRG FREE TEXT EXTERNAL PLUS NORMAL CORWIN NRG QUANTITY OF GROWTH Moderate Growth NRG Complete blood count (CBC) with automated white blood cell (WBC) differential - 10/26/17 08:20 Blood leukocytes automated count (number/volume) 12.0 10*3/uL 4.3-11.0 Blood erythrocytes automated count (number/volume) 4.38 10*6/uL 4.35-5.85 Venous blood hemoglobin measurement (mass/volume) 13.0 g/dL 11.5-16.0 Blood hematocrit (volume fraction) 39 % 35-52 Automated erythrocyte mean corpuscular volume 88 [foz_us] 80-99 Automated erythrocyte mean corpuscular hemoglobin (mass per erythrocyte) 30 pg 25-34 Automated erythrocyte mean corpuscular hemoglobin concentration measurement ( mass/volume) 34 g/dL 32-36 Automated erythrocyte distribution width ratio 13.0 % 10.0-14.5 Automated blood platelet count (count/volume) 257 10*3/uL 130-400 Automated blood platelet mean volume measurement 9.8 [foz_us] 7.4-10.4 Automated blood neutrophils/100 leukocytes 84 % 42-75 Automated blood lymphocytes/100 leukocytes 8 % 12-44 Blood monocytes/100 leukocytes 6 % 0-12 Automated blood eosinophils/100 leukocytes 2 % 0-10 Automated blood basophils/100 leukocytes 0 % 0-10 Blood neutrophils automated count (number/volume) 10.1 10*3 1.8-7.8 Blood lymphocytes automated count (number/volume) 1.0 10*3 1.0-4.0 Blood monocytes automated count (number/volume) 0.7 10*3 0.0-1.0 Automated eosinophil count 0.2 10*3/uL 0.0-0.3 Automated blood basophil count (count/volume) 0.0 10*3/uL 0.0-0.1 Serum heterophile antibody titer - 10/26/17 08:20 Serum heterophile antibody titer NEGATIVE NEGATIVE Complete blood count (CBC) with automated white blood cell (WBC) differential - 10/27/17 04:50 Blood leukocytes automated count (number/volume) 17.0 10*3/uL 4.3-11.0 Blood erythrocytes automated count (number/volume) 4.17 10*6/uL 4.35-5.85 Venous blood hemoglobin measurement (mass/volume) 12.4 g/dL 11.5-16.0 Blood hematocrit (volume fraction) 37 % 35-52 Automated erythrocyte mean corpuscular volume 89 [foz_us] 80-99 Automated erythrocyte mean corpuscular hemoglobin (mass per erythrocyte) 30 pg 25-34 Automated erythrocyte mean corpuscular hemoglobin concentration measurement ( mass/volume) 33 g/dL 32-36 Automated erythrocyte distribution width ratio 12.7 % 10.0-14.5 Automated blood platelet count (count/volume) 244 10*3/uL 130-400 Automated blood platelet mean volume measurement 10.0 [foz_us] 7.4-10.4 Automated blood neutrophils/100 leukocytes 96 % 42-75 Automated blood lymphocytes/100 leukocytes 3 % 12-44 Blood monocytes/100 leukocytes 1 % 0-12 Automated blood eosinophils/100 leukocytes 0 % 0-10 Automated blood basophils/100 leukocytes 0 % 0-10 Blood neutrophils automated count (number/volume) 16.3 10*3 1.8-7.8 Blood lymphocytes automated count (number/volume) 0.5 10*3 1.0-4.0 Blood monocytes automated count (number/volume) 0.1 10*3 0.0-1.0 Automated eosinophil count 0.0 10*3/uL 0.0-0.3 Automated blood basophil count (count/volume) 0.0 10*3/uL 0.0-0.1 Blood manual differential performed detection - 10/27/17 04:50 Blood monocytes/100 leukocytes 2 % NRG Manual blood segmented neutrophils/100 leukocytes 92 % NRG Blood band neutrophils/100 leukocytes 5 % NRG Manual blood lymphocytes/100 leukocytes 1 % NRG Blood erythrocyte morphology finding identification NORMAL NRG Comprehensive metabolic panel - 12/18/17 04:50 Serum or plasma sodium measurement (moles/volume) 142 mmol/L 135-145 Serum or plasma potassium measurement (moles/volume) 3.4 mmol/L 3.6-5.0 Serum or plasma chloride measurement (moles/volume) 112 mmol/L 98-107 Carbon dioxide 22 mmol/L 21-32 Serum or plasma anion gap determination (moles/volume) 8 mmol/L 5-14 Serum or plasma urea nitrogen measurement (mass/volume) 9 mg/dL 7-18 Serum or plasma creatinine measurement (mass/volume) 0.57 mg/dL 0.60-1.30 Serum or plasma urea nitrogen/creatinine mass ratio 16 [facility] Serum or plasma creatinine measurement with calculation of estimated glomerular filtration rate > [facility] Serum or plasma glucose measurement (mass/volume) 175 mg/dL 70-105 Serum or plasma calcium measurement (mass/volume) 8.4 mg/dL 8.5-10.1 Serum or plasma total bilirubin measurement (mass/volume) 0.3 mg/dL 0.1-1.0 Serum or plasma alkaline phosphatase measurement (enzymatic activity/volume) 79 U/L 40-136 Serum or plasma aspartate aminotransferase measurement (enzymatic activity/ volume) 19 U/L 5-34 Serum or plasma alanine aminotransferase measurement (enzymatic activity/volume ) 45 U/L 0-55 Serum or plasma protein measurement (mass/volume) 6.8 g/dL 6.4-8.2 Serum or plasma albumin measurement (mass/volume) 3.8 g/dL 3.2-4.5 Urine beta human chorionic gonadotropin (hCG) measurement - 11/06/17 13:07 Urine beta human chorionic gonadotropin (hCG) measurement NEGATIVE NEGATIVE Methicillin resistant Staphylococcus aureus (MRSA) screening culture - 13:17 Methicillin resistant Staphylococcus aureus (MRSA) screening culture NEG [facility] Automated blood complete blood count (hemogram) panel - 11/07/17 06:30 Blood leukocytes automated count (number/volume) 14.5 10*3/uL 4.3-11.0 Blood erythrocytes automated count (number/volume) 4.18 10*6/uL 4.35-5.85 Venous blood hemoglobin measurement (mass/volume) 12.2 g/dL 11.5-16.0 Blood hematocrit (volume fraction) 37 % 35-52 Automated erythrocyte mean corpuscular volume 88 [foz_us] 80-99 Automated erythrocyte mean corpuscular hemoglobin (mass per erythrocyte) 29 pg 25-34 Automated erythrocyte mean corpuscular hemoglobin concentration measurement ( mass/volume) 33 g/dL 32-36 Automated erythrocyte distribution width ratio 12.6 % 10.0-14.5 Automated blood platelet count (count/volume) 236 10*3/uL 130-400 Automated blood platelet mean volume measurement 10.4 [foz_us] 7.4-10.4 Whole blood basic metabolic panel - 11/07/17 06:30 Serum or plasma sodium measurement (moles/volume) 138 mmol/L 135-145 Serum or plasma potassium measurement (moles/volume) 4.5 mmol/L 3.6-5.0 Serum or plasma chloride measurement (moles/volume) 108 mmol/L 98-107 Carbon dioxide 19 mmol/L 21-32 Serum or plasma anion gap determination (moles/volume) 11 mmol/L 5-14 Serum or plasma urea nitrogen measurement (mass/volume) 9 mg/dL 7-18 Serum or plasma creatinine measurement (mass/volume) 0.65 mg/dL 0.60-1.30 Serum or plasma urea nitrogen/creatinine mass ratio 14 NRG Serum or plasma creatinine measurement with calculation of estimated glomerular filtration rate > NRG Serum or plasma glucose measurement (mass/volume) 118 mg/dL 70-105 Serum or plasma calcium measurement (mass/volume) 8.7 mg/dL 8.5-10.1 Encounters ACCT No. Visit Date/Time Discharge Status Pt. Type Provider Facility Loc./Unit Complaint [id number] 11/06/2017 12:58:00 11/07/2017 18:05:00 DIS Inpatient ANNEMARIE BRYANT MD [facility] 4TH MORBID OBESITY [id number] 10/30/2017 09:11:00 10/30/2017 09:20:00 DIS Outpatient ANNEMARIE BRYANT MD [facility] PREOP MORBID OBESITY [id number] 10/26/2017 09:37:00 10/27/2017 12:56:00 DIS Inpatient EWA MORIN MD [facility] 4TH SEVERE PHARYNGITIS [id number] 10/14/2017 19:58:00 10/14/2017 21:15:00 DIS Emergency DELMAR HERNANDEZ [facility] ER WHOLE BODY RASH [id number] 08/24/2017 18:19:00 08/24/2017 20:17:00 DIS Emergency FABIANA OLIVAS [employer] [facility] ER L SHOULDER PAIN [id number] 08/11/2017 15:22:00 08/11/2017 23:59:59 CLS Outpatient EWA MORIN MD [facility] RAD SCREENING [id number] 07/29/2017 08:35:00 07/29/2017 23:59:59 CLS Outpatient ANNEMARIE BRYANT MD [facility] RAD REFLUX K21.9 [id number] 02/27/2017 18:30:00 02/27/2017 21:54:00 DIS Emergency FABIANA OLIVAS [employer] [facility] ER ABD PAIN [id number] 01/27/2017 08:26:00 01/27/2017 11:45:00 DIS Outpatient BRII ALFRED MD [facility] ENDO DIARRHEA [id number] 01/24/2017 10:30:00 01/24/2017 11:25:00 DIS Outpatient BRII ALFERD MD [facility] PREOP DIARRHEA [id number] 07/29/2016 08:55:00 07/29/2016 23:59:59 CLS Outpatient EWA MORIN MD [facility] RAD SCREENING MAMMOGRAM [id number] 06/26/2016 09:41:00 06/26/2016 23:59:59 CLS Outpatient EWA MORIN MD [facility] RAD XR RT WRIST [id number] 01/02/2016 21:27:00 01/03/2016 17:04:00 DIS Inpatient WEA MORIN MD [facility] CSD [id number] 07/26/2015 11:32:00 07/26/2015 23:59:59 CLS Outpatient EWA MORIN MD [facility] RAD [id number] 01/13/2018 18:35:00 ACT Emergency KATHERINE IBANEZ DO [facility] ER SORE THROAT [id number] 01/24/2017 10:56:00 Document Registration [id number] 01/24/2017 10:56:00 Document Registration [id number] 07/20/2015 12:22:00 Document Registration [id number] 07/20/2015 12:22:00 Document Registration [id number] 06/01/2012 08:40:00 Document Registration [id number] 11/14/2011 18:43:00 Document Registration
--- NOTE | 2018-01-13 18:47 | ED Cough/URI ---
General Chief Complaint: Cough/Cold/Flu Symptoms Stated Complaint: SORE THROAT Source: patient Exam Limitations: no limitations History of Present Illness Date Seen by Provider: Jan 13, 2018 Time Seen by Provider: 18:45 Initial Comments To ER with a cough, sore throat, rhinorrhea, chills since last night. Timing/Duration: just prior to arrival Severity/Quality: dry cough Associated Symptoms: cough, fever/chills, sore throat Allergies and Home Medications Allergies Coded Allergies: codeine (Verified Allergy, Intermediate, GI UPSET/NUMBNESS IN ARMS, ) Home Medications Acetaminophen 500 Mg Tablet, 1,000 MG PO Q4H PRN for PAIN-MILD, (Reported) TAKES 2 (500 MG) TABLETS / ALTERNATES WITH IBUPROFEN Ibuprofen 200 Mg Tablet, 400 MG PO Q4H PRN for PAIN-MILD, (Reported) TAKES 2 (200 MG) TABLETS / ALTERNATES WITH ACETAMINOPHEN Meloxicam 15 Mg Tablet, 15 MG PO DAILY, (Reported) Simvastatin 10 Mg Tablet, 10 MG PO HS, (Reported) Patient Home Medication List Home Medication List Reviewed: Yes Constitutional: see HPI, chills, malaise EENTM: throat pain Respiratory: see HPI, cough Cardiovascular: no symptoms reported Genitourinary: no symptoms reported Musculoskeletal: no symptoms reported Skin: no symptoms reported Psychiatric/Neurological: No Symptoms Reported Hematologic/Lymphatic: No Symptoms Reported Past Ujtarwr-Svmnko-Hrtihu Hx Patient Social History Type Used: Cigarettes Former Smoker, Quit: Oct 30, 1992 2nd Hand Smoke Exposure: No Recent Foreign Travel: No Contact w/Someone Who Travel: No Recent Hopitalizations: Yes (10/26-STREP THROAT) Immunizations Up To Date Tetanus Booster (TDap): Less than 5yrs PED Vaccines UTD: No Date of Influenza Vaccine: Jul 21, 2017 Seasonal Allergies Seasonal Allergies: No Surgeries History of Surgeries: Yes (RIGHT HAND CYST REMOVED, lymph node biopsy right axilla) Surgeries: Section, Gallbladder Respiratory History of Respiratory Disorde: No Cardiovascular History of Cardiac Disorders: Yes Cardiac Disorders: High Cholesterol Neurological History of Neurological Disord: No Reproductive System Hx Reproductive Disorders: No Sexually Transmitted Disease: No HIV/AIDS: No Female Reproductive Disorders: Denies Gastrointestinal History of Gastrointestinal Di: No Gastrointestinal Disorders: Gall Bladder Disease Musculoskeletal History of Musculoskeletal Dis: Yes (LEFT SHOULDER/NECK PAIN) Endocrine History of Endocrine Disorders: No HEENT Loss of Vision: Bilateral Hearing Impairment: Denies Cancer History of Cancer: No Psychosocial History of Psychiatric Problem: No Integumentary History of Skin or Integumenta: No Blood Transfusions History of Blood Disorders: No Adverse Reaction to a Blood Tr: No (N/A) Family Medical History Significant Family History: Heart Disease, Diabetes Family Medial History: Colon cancer 19 FATHER Diabetes mellitus 19 MOTHER G8 SISTER FH: CHF (congestive heart failure) 19 FATHER 19 MOTHER FH: breast cancer 19 MOTHER Myocardial infarction 19 FATHER Thyroid disease 19 MOTHER G8 SISTER Physical Exam Vital Signs Vital Signs - First Documented 01/13/18 18:42 Temp 99.5 Pulse 92 Resp 18 B/P (MAP) 135/67 (89) Capillary Refill : General Appearance: WD/WN, no apparent distress Eyes: Bilateral Eye Normal Inspection, Bilateral Eye PERRL, Bilateral Eye EOMI HEENT: PERRL/EOMI, normal ENT inspection, other (there is pharyngeal erythema, cobblestoning of the oropharynx consistent with postnasal drip. She also has some exudate on the right tonsil) Neck: non-tender, full range of motion Respiratory: lungs clear, normal breath sounds, no respiratory distress, no accessory muscle use Cardiovascular: regular rate, rhythm, no murmur Gastrointestinal: normal bowel sounds, no organomegaly Extremities: normal range of motion, non-tender Neurologic/Psychiatric: alert, normal mood/affect, oriented x 3 Skin: normal color, warm/dry Progress/Results/Core Measures Suspected Sepsis SIRS Temperature: Pulse: Respiratory Rate: Blood Pressure / Mean: Results/Orders Lab Results Laboratory Tests Test 01/13/18 18:47 Range/Units Group A Streptococcus Screen NEGATIVE NEGATIVE Micro Results Microbiology 01/13/18 Influenza Types A,B Antigen ([facility]RI[facility]) - Final, Complete My Orders Orders - FABIANA OLIVAS APRN Influenza A And B Antigens (01/13/18 18:48) Rapid Strep A Screen (01/13/18 18:48) Vital Signs/I&O Vital Sign - Last 12Hours 01/13/18 18:42 Temp 99.5 Pulse 92 Resp 18 B/P (MAP) 135/67 (89) Capillary Refill : Departure Impression Impression: Primary Impression: Influenza Disposition: 01 HOME, SELF-CARE Condition: Stable Departure-Patient Inst. Referrals: EWA MORIN MD (PCP/Family) Primary Care Physician Patient Instructions: VIRAL SYNDROME Add. Discharge Instructions: Take medication as directed, follow-up doctor within 1 week. Use Tylenol and ibuprofen as needed for pain and fever, drink plenty of fluids, and you can use [id number]-stckmyf sore throat medications. Return back to the emergency room for worsening symptoms like shortness of breath, chest pain, nausea vomiting. All discharge instructions reviewed with patient and/or family. Voiced understanding. Scripts Oseltamivir Phosphate (Tamiflu) 75 Mg Cap 75 MG PO BID for 5 Days, #10 CAP Prov: FABIANA OLIVAS APRN 01/13/18 FABIANA OLIVAS APRN Jan 13, 2018 18:47
[2018-01-13] MEDS ORDERED: OSLT75C PO (19:32)
[2018-01-13 19:39] VITALS: BP 0/0
== END 2018-01-13 19:39 | disposition home or self-care (01) ==
LOC: EDUNIT# 18:34 → ER 18:35
DX: J11.1 Influenza due to unidentified influenza virus with other respiratory manifestations (principal); E78.00 Pure hypercholesterolemia, unspecified; Z80.0 Family history of malignant neoplasm of digestive organs; Z82.49 Family history of ischemic heart disease and other diseases of the circulatory system; Z80.3 Family history of malignant neoplasm of breast; Z88.5 Allergy status to narcotic agent; Z87.891 Personal history of nicotine dependence; Z87.59 Personal history of other complications of pregnancy, childbirth and the puerperium; Z87.448 Personal history of other diseases of urinary system
CPT/HCPCS: 87430; 87804; 99282

== ENCOUNTER → 2018-08-21 | Outpatient (CLI) | payer MEDICAID, OTHER ==
[~2018-08-21] MED LIST changes: +OSLT75C PO
--- NOTE | 2018-08-21 12:37 | Diagnostic Imaging Report ---
INDICATION: Digital mammogram bilateral screening with 3D tomosynthesis. This study was compared to the prior exams of 08/11/2017, 07/29/2016 and 07/26/2015. At this time, there are no current complaints. The current study was also evaluated with a Computer Aided Detection (CAD) system. 3-D tomosynthesis was also performed and reviewed. FINDINGS: The fibroglandular tissue in both breasts is heterogeneously dense. This does limit the sensitivity of this exam. Overall, there does not appear to have been any significant change when compared to the prior study. No primary or secondary sign of malignancy is noted. 3D tomographic images fail to show any sign of malignancy. IMPRESSION: There is no radiographic evidence for malignancy. ACR BI-RADS Category 1: Negative. Result letter will be mailed to the patient. Note: At least 10% of breast cancer is not imaged by mammography. Dictated by: Dictated on workstation # [id number]
--- NOTE | 2018-08-21 13:40 | Diagnostic Imaging Report ---
INDICATION: Left foot pain. Hurts to bear weight. TECHNIQUE: Three views of the left foot. CORRELATION STUDY: None. FINDINGS: The osseous structures of the foot are intact. Joint spaces are maintained. Alignment anatomic. Tiny well-corticated bone fragment adjacent to the lateral tarsals may reflect an accessory ossicle of no significance. Soft tissues appearing unremarkable. IMPRESSION: 1. Negative for acute findings of the foot. Dictated by: Dictated on workstation # [id number]
== END ==
LOC: RAD 10:05
PROVIDERS: ATTEND Family Medicine
DX: Z12.31 Encounter for screening mammogram for malignant neoplasm of breast (principal); M79.672 Pain in left foot
CPT/HCPCS: 73630; 77067

== ENCOUNTER 2018-09-05 20:57 | Emergency (ER) | payer OTHER ==
[~2018-09-05] VITALS: Ht 170.2 cm; Wt 81.6 kg
--- OUTSIDE RECORDS SUMMARY | 2018-09-05 21:03 | XMS REPORT | Continuity of Care Document ---
Author Author [facility] Organization [facility] Address Unknown Phone Unavailable Allergies Active Description Code Type Severity Reaction Onset Reported/Identified Relationship to Patient Clinical Status Yes codeine [id number] Drug Allergy Unknown N/A 11/10/2006 Yes codeine [id number] Drug Allergy Moderate GI UPSET/NUMBNE 10/30/2017 Medications [...] RIGHT UPPER QUADRANT PAIN 02/27/2017 FABIANA OLIVAS PIZZA CHEF Ot Z90.49 ACQUIRED ABSENCE OF OTHER SPECIFIED PART 02/28/2017 FABIANA OLIVAS PIZZA CHEF Ot R10.11 RIGHT UPPER QUADRANT PAIN 02/28/2017 FABIANA OLIVAS PIZZA CHEF Ot Z90.49 ACQUIRED ABSENCE OF OTHER SPECIFIED [...] Ot L23.9 ALLERGIC CONTACT DERMATITIS, UNSPECIFIED 10/14/2017 DLEMAR HERNANDEZ Ot R21 RASH AND OTHER NONSPECIFIC [...] DUE TO EXCESS CA 11/08/2017 ANNEMARIE BRYANT MD Ot Z01.818 ENCOUNTER FOR OTHER PREPROCEDURAL EXAMIN 11/08/2017 ANNEMARIE BRYANT MD, Ot Z68.35 BODY MASS INDEX (BMI) 35.0-35.9, ADULT 01/13/2018 FABIANA OLIVAS APRN Ot E78.00 PURE HYPERCHOLESTEROLEMIA, UNSPECIFIED 01/13/2018 FABIANA OLIVAS APRN Ot J02.9 ACUTE PHARYNGITIS, UNSPECIFIED 01/13/2018 FABIANA OLIVAS APRN Ot J11.1 FLU DUE TO UNIDENTIFIED INFLUENZA VIRUS 01/13/2018 FABIANA OLIVAS APRN Ot Z80.0 FAMILY HISTORY OF MALIGNANT NEOPLASM OF 01/13/2018 FABIANA OLIVAS APRN Ot Z80.3 FAMILY HISTORY OF MALIGNANT NEOPLASM OF 01/13/2018 FABIANA OLIVAS APRN Ot Z82.49 FAMILY HX OF ISCHEM HEART DIS AND OTH DI 01/13/2018 FABIANA OLIVAS APRN Ot Z87.448 PERSONAL HISTORY OF OTHER DISEASES OF UR 01/13/2018 FABIANA OLIVAS APRN Ot Z87.59 PERSONAL HISTORY OF COMP OF PREG, CHLDBR 01/13/2018 FABIANA OLIVAS APRN Ot Z87.891 PERSONAL HISTORY OF NICOTINE DEPENDENCE 01/13/2018 FABIANA OLIVAS APRN Ot Z88.5 ALLERGY STATUS TO NARCOTIC AGENT STATUS 01/14/2018 EWA MORIN MD Ot M53.3 SACROCOCCYGEAL DISORDERS, NOT ELSEWHERE 01/14/2018 EWA MORIN MD Ot Z12.31 ENCNTR SCREEN MAMMOGRAM FOR MALIGNANT NE 01/14/2018 EWA MORIN MD Ot M25.531 PAIN IN RIGHT WRIST 01/14/2018 ANNEMARIE BRYANT MD Ot K21.9 GASTRO-ESOPHAGEAL REFLUX DISEASE WITHOUT 01/14/2018 EWA MORIN MD Ot Z12.31 ENCNTR SCREEN MAMMOGRAM FOR MALIGNANT NE 01/15/2018 FABIANA OLIVAS APRN Ot E78.00 PURE HYPERCHOLESTEROLEMIA, UNSPECIFIED 01/15/2018 FABIANA OLIVAS APRN Ot J02.9 ACUTE PHARYNGITIS, UNSPECIFIED 01/15/2018 FABIANA OLIVAS APRN Ot J11.1 FLU DUE TO UNIDENTIFIED INFLUENZA VIRUS 01/15/2018 FABIANA OLIVAS APRN Ot Z80.0 FAMILY HISTORY OF MALIGNANT NEOPLASM OF 01/15/2018 FABIANA OLIVAS APRN Ot Z80.3 FAMILY HISTORY OF MALIGNANT NEOPLASM OF 01/15/2018 FABIANA OLIVAS APRN Ot Z82.49 FAMILY HX OF ISCHEM HEART DIS AND OTH DI 01/15/2018 FABIANA OLIVAS APRN Ot Z87.448 PERSONAL HISTORY OF OTHER DISEASES OF UR 01/15/2018 FABIANA OLIVAS APRN Ot Z87.59 PERSONAL HISTORY OF COMP OF PREG, CHLDBR 01/15/2018 FABIANA OILVAS APRN Ot Z87.891 PERSONAL HISTORY OF NICOTINE DEPENDENCE 01/15/2018 FABIANA OLIVAS APRN Ot Z88.5 ALLERGY STATUS TO NARCOTIC AGENT STATUS 05/28/2018 FABIANA OLIVAS APRN Ot E78.00 PURE HYPERCHOLESTEROLEMIA, UNSPECIFIED 05/28/2018 FABIANA OLIVAS APRN Ot J02.9 ACUTE PHARYNGITIS, UNSPECIFIED 05/28/2018 FABIANA OLIVAS APRN Ot J11.1 FLU DUE TO UNIDENTIFIED INFLUENZA VIRUS 05/28/2018 FABIANA OLIVAS APRN Ot Z80.0 FAMILY HISTORY OF MALIGNANT NEOPLASM OF 05/28/2018 FABIANA OLIVAS APRN Ot Z80.3 FAMILY HISTORY OF MALIGNANT NEOPLASM OF 05/28/2018 FABIANA OLIVAS APRN Ot Z82.49 FAMILY HX OF ISCHEM HEART DIS AND OTH DI 05/28/2018 FABIANA OLIVAS APRN Ot Z87.448 PERSONAL HISTORY OF OTHER DISEASES OF UR 05/28/2018 FABIANA OLIVAS APRN Ot Z87.59 PERSONAL HISTORY OF COMP OF PREG, CHLDBR 05/28/2018 FABIANA OLIVAS APRN Ot Z87.891 PERSONAL HISTORY OF NICOTINE DEPENDENCE 05/28/2018 FABIANA OLIVAS APRN Ot Z88.5 ALLERGY STATUS TO NARCOTIC AGENT STATUS 08/24/2018 EWA MORIN MD Ot M79.672 PAIN IN LEFT FOOT 08/24/2018 EWA MORIN MD Ot Z12.31 ENCNTR SCREEN MAMMOGRAM FOR MALIGNANT NE 08/27/2018 EWA OMRIN MD, Ot M79.672 PAIN IN LEFT FOOT 08/27/2018 PATIENCE OLIVEROS, EWA Wren Ot Z12.31 ENCNTR SCREEN MAMMOGRAM FOR MALIGNANT NE Procedures Code Description Performed By Performed On [id number] EXCISION OF STOMACH, PERCUTANEOUS ENDOSC 11/06/2017 Results [...] culture - 10/26/17 07:50 Bacterial throat culture [id number] NRG FREE TEXT EXTERNAL PLUS NORMAL CORWIN [...] NRG Blood erythrocyte morphology finding identification NORMAL NR Comprehensive metabolic panel - 10/27/17 04:50 Serum or plasma sodium measurement (moles/volume) [...] or plasma urea nitrogen/creatinine mass ratio 16 NRG Serum or plasma creatinine measurement with calculation of estimated glomerular filtration rate > NRG Serum or plasma glucose measurement (mass/volume) 175 [...] resistant Staphylococcus aureus (MRSA) screening culture NEG NRG Automated blood complete blood count (hemogram) panel [...] plasma calcium measurement (mass/volume) 8.7 mg/dL 8.5-10.1 Streptococcus pyogenes antigen detection - 01/13/18 18:47 Streptococcus pyogenes antigen detection NEGATIVE NEGATIVE Influenza virus A and B antigen detection - 01/13/18 18:47 CALL POSITIVES (F1 HELP) CALVIN NRG FLU RESULT POSITIVE FOR INFLUENZA B ANTIGEN, NEG FOR A ANTIGEN, BY IA NRG Bacterial throat culture - 01/13/18 18:47 Bacterial throat culture [id number] NRG FREE TEXT EXTERNAL NON A,B,C,F,G BETA STREP NRG QUANTITY OF GROWTH Moderate Growth NRG FREE TEXT EXTERNAL 2 PLUS ABUNDANT NORMAL CORWIN NRG Encounters ACCT No. Visit Date/Time Discharge Status Pt. Type Provider Facility Loc./Unit Complaint [id number] 08/21/2018 10:05:00 08/21/2018 23:59:59 CLS Outpatient EWA MORIN MD [facility] RAD SCREENING, LEFT FOOT PAIN [id number] 01/13/2018 18:35:00 01/13/2018 19:39:00 DIS Outpatient FABIANA OLIVAS APRN [facility] ER SORE THROAT [id number] 11/06/2017 12:58:00 11/07/2017 18:05:00 DIS Inpatient ANNEMARIE BRYANT MD [facility] 4TH MORBID OBESITY [id number] 10/30/2017 09:11:00 10/30/2017 09:20:00 DIS Outpatient ANNEMARIE BRYANT MD [facility] PREOP MORBID OBESITY [id number] 10/26/2017 09:37:00 10/27/2017 12:56:00 DIS Inpatient EWA MORIN MD [facility] 4TH SEVERE PHARYNGITIS [id number] 10/14/2017 19:58:00 10/14/2017 21:15:00 DIS Emergency DELMAR HERNANDEZ [facility] ER WHOLE BODY RASH [id number] 08/24/2017 18:19:00 08/24/2017 20:17:00 DIS Emergency FABIANA OLIVAS PIZZA CHEF [facility] ER L SHOULDER PAIN [id number] 08/11/2017 15:22:00 08/11/2017 23:59:59 CLS Outpatient EWA MORIN MD [facility] RAD SCREENING [id number] 07/29/2017 08:35:00 07/29/2017 23:59:59 CLS Outpatient ANNEMARIE BRYANT MD [facility] RAD REFLUX K21.9 [id number] 02/27/2017 18:30:00 02/27/2017 21:54:00 DIS Emergency FABIANA OLIVAS PIZZA CHEF [facility] ER ABD PAIN [id number] 01/27/2017 08:26:00 01/27/2017 11:45:00 DIS Outpatient BRII ALFRED MD [facility] ENDO DIARRHEA [id number] 01/24/2017 10:30:00 01/24/2017 11:25:00 DIS Outpatient BRII ALFRED MD [facility] PREOP DIARRHEA [id number] 07/29/2016 08:55:00 07/29/2016 23:59:59 CLS Outpatient EWA MORIN MD [facility] RAD SCREENING MAMMOGRAM [id number] 06/26/2016 09:41:00 06/26/2016 23:59:59 CLS Outpatient EWA MORIN MD [facility] RAD XR RT WRIST [id number] 01/02/2016 21:27:00 01/03/2016 17:04:00 DIS Inpatient EWA OMRIN MD [facility] CSD [id number] 07/26/2015 11:32:00 07/26/2015 23:59:59 CLS Outpatient EWA MORIN MD [facility] RAD [id number] 01/24/2017 10:56:00 Document Registration [id number] 01/24/2017 10:56:00 Document Registration [id number] 07/20/2015 12:22:00 Document Registration [id number] 07/20/2015 12:22:00 Document Registration [id number] 06/01/2012 08:40:00 Document Registration [id number] 11/14/2011 18:43:00 Document Registration [id number] 07/29/2017 11:00:00 07/29/2017 23:59:59 CLS Outpatient TERRIE DOUGHERTY [facility]
[2018-09-05] MEDS ORDERED: HYOSCYAMINE 0.125 MG (LEVSIN) TAB PO ONE (21:45)
[2018-09-05] MEDS ORDERED: ONDANSETRON 4 MG/2 ML (SDV) Z0FRAN IVP ONE (21:45)
[2018-09-05] MEDS ORDERED: NS IV 1000 ML 1,000 ML IV SCH (21:45)
--- NOTE | 2018-09-05 21:45 | ED Abdominal Pain ---
General Stated Complaint: V/D/STOMACH CRAMPS Source of Information: Patient Exam Limitations: No Limitations History of Present Illness Date Seen by Provider: Sep 05, 2018 Time Seen by Provider: 21:43 Initial Comments To ER with vomiting diarrhea and abdominal pain that began this evening. She's had 2 episodes of vomiting and diarrhea. She's had some associated cramping periumbilical abdominal pain. No blood or mucus in the diarrhea. No dysuria Timing/Duration: 4-6 Hours Severity/Quality: Moderate, Cramping Location: Periumbilical Radiation: No Radiation Activities at Onset: None Associated Symptoms: Nausea/Vomiting Allergies and Home Medications Allergies Coded Allergies: codeine (Verified Allergy, Intermediate, GI UPSET/NUMBNESS IN ARMS, ) Home Medications Acetaminophen 500 Mg Tablet, 1,000 MG PO Q4H PRN for PAIN-MILD, (Reported) TAKES 2 (500 MG) TABLETS / ALTERNATES WITH IBUPROFEN Ibuprofen 200 Mg Tablet, 400 MG PO Q4H PRN for PAIN-MILD, (Reported) TAKES 2 (200 MG) TABLETS / ALTERNATES WITH ACETAMINOPHEN Meloxicam 15 Mg Tablet, 15 MG PO DAILY, (Reported) Oseltamivir Phosphate 75 Mg Cap, 75 MG PO BID Prescribed by: FABIANA OLIVAS on 01/13/181931 Simvastatin 10 Mg Tablet, 10 MG PO HS, (Reported) Patient Home Medication List Home Medication List Reviewed: Yes Review of Systems Review of Systems Constitutional: see HPI, chills; No fever EENTM: No Symptoms Reported Respiratory: No Symptoms Reported Cardiovascular: No Symptoms Reported Gastrointestinal: See HPI, Abdominal Pain, Diarrhea, Nausea; Denies Vomiting Genitourinary: No Symptoms Reported Musculoskeletal: no symptoms reported Skin: no symptoms reported Psychiatric/Neurological: No Symptoms Reported Endocrine: No Symptoms Reported Past Jyrwfeu-Flqqew-Wqirmo Hx Patient Social History Type Used: Cigarettes Former Smoker, Quit: Oct 30, 1992 2nd Hand Smoke Exposure: No Recent Foreign Travel: No Contact w/Someone Who Travel: No Recent Hopitalizations: Yes (10/26-STREP THROAT) Immunizations Up To Date Tetanus Booster (TDap): Less than 5yrs PED Vaccines UTD: No Date of Influenza Vaccine: Jul 21, 2017 Seasonal Allergies Seasonal Allergies: No Past Medical History Surgeries: Yes (RIGHT HAND CYST REMOVED, lymph node biopsy right axilla) Section, Gallbladder Respiratory: No Cardiac: Yes High Cholesterol Neurological: No Reproductive Disorders: No Female Reproductive Disorders: Denies Sexually Transmitted Disease: No HIV/AIDS: No Gastrointestinal: No Gall Bladder Disease Musculoskeletal: Yes (LEFT SHOULDER/NECK PAIN) Endocrine: No Loss of Vision: Bilateral Hearing Impairment: Denies Cancer: No Psychosocial: No Integumentary: No Blood Disorders: No Adverse Reaction/Blood Tranf: No (N/A) Family Medical History Colon cancer 19 FATHER Diabetes mellitus 19 MOTHER G8 SISTER FH: CHF (congestive heart failure) 19 FATHER 19 MOTHER FH: breast cancer 19 MOTHER Myocardial infarction 19 FATHER Thyroid disease 19 MOTHER G8 SISTER Heart Disease, Diabetes Physical Exam Vital Signs Vital Signs - First Documented 09/05/18 21:33 Temp 99.5 Pulse 97 Resp 20 B/P (MAP) 118/85 (96) O2 Delivery Nasal Cannula Capillary Refill : Height/Weight/BMI Height: 5'7.00" Weight: 190lbs. 8.0oz. 86.922722lf; 35.9 BMI Method:Stated General Appearance: WD/WN, no apparent distress HEENT: PERRL/EOMI, normal ENT inspection Neck: non-tender, full range of motion Respiratory: normal breath sounds, no respiratory distress, no accessory muscle use Cardiovascular: regular rate, rhythm, no murmur Gastrointestinal: normal bowel sounds, non tender, soft Extremities: normal range of motion, non-tender Neurologic/Psychiatric: alert, normal mood/affect, oriented x 3 Skin: normal color, warm/dry Progress/Results/Core Measures Results/Orders Lab Results Laboratory Tests Test 09/05/18 22:13 Range/Units White Blood Count 7.4 4.3-11.0 10^3/uL Red Blood Count 4.27 L 4.35-5.85 10^6/uL Hemoglobin 12.4 11.5-16.0 G/DL Hematocrit 38 35-52 % Mean Corpuscular Volume 89 80-99 FL Mean Corpuscular Hemoglobin 29 25-34 PG Mean Corpuscular Hemoglobin Concent 33 32-36 G/DL Red Cell Distribution Width 12.5 10.0-14.5 % Platelet Count 232 130-400 10^3/uL Mean Platelet Volume 10.0 7.4-10.4 FL Neutrophils (%) (Auto) 88 H 42-75 % Lymphocytes (%) (Auto) 6 L 12-44 % Monocytes (%) (Auto) 5 0-12 % Eosinophils (%) (Auto) 1 0-10 % Basophils (%) (Auto) 0 0-10 % Neutrophils # (Auto) 6.5 1.8-7.8 X 10^3 Lymphocytes # (Auto) 0.5 L 1.0-4.0 X 10^3 Monocytes # (Auto) 0.4 0.0-1.0 X 10^3 Eosinophils # (Auto) 0.1 0.0-0.3 10^3/uL Basophils # (Auto) 0.0 0.0-0.1 10^3/uL Sodium Level 141 135-145 MMOL/L Potassium Level 3.9 3.6-5.0 MMOL/L Chloride Level 108 H 98-107 MMOL/L Carbon Dioxide Level 21 21-32 MMOL/L Anion Gap 12 5-14 MMOL/L Blood Urea Nitrogen 15 7-18 MG/DL Creatinine 0.64 0.60-1.30 MG/DL Estimat Glomerular Filtration Rate > 60 BUN/Creatinine Ratio 23 Glucose Level 96 70-105 MG/DL Calcium Level 9.3 8.5-10.1 MG/DL Corrected Calcium 9.1 8.5-10.1 MG/DL Total Bilirubin 0.4 0.1-1.0 MG/DL Aspartate Amino Transf (AST/SGOT) 106 H 5-34 U/L Alanine Aminotransferase (ALT/SGPT) 119 H 0-55 U/L Alkaline Phosphatase 91 40-136 U/L Total Protein 7.2 6.4-8.2 GM/DL Albumin 4.3 3.2-4.5 GM/DL Lipase 42 8-78 U/L Micro Results Microbiology 09/05/18 Influenza Types A,B Antigen (ADRIEN) - Final, Complete My Orders Orders - FABIANA OLIVAS APRN Cbc With Automated Diff (09/05/18 21:42) Comprehensive Metabolic Panel (09/05/18 21:42) Ua Culture If Indicated (09/05/18 21:42) Iv Heplock-Insert (Order) (09/05/18 21:42) Lipase (09/05/18 21:42) Ns Iv 1000 Ml (Sodium Chloride 0.9%) (09/05/18 21:45) Ondansetron Injection (Zofran Injectio (09/05/18 21:45) Hyoscyamine Sl Tablet (Levsin Sl Tablet) (09/05/18 21:45) Diphenhydramine Injection (Benadryl Inje (09/05/18 22:30) Manual Differential (09/05/18 22:13) Influenza A And B Antigens (09/05/18 22:23) Rx-Hyoscyamine Tab (Rx-Levsin Sl) (09/05/18 23:20) Rx-Ondansetron Po (Rx-Zofran Po) (09/05/18 23:20) Medications Given in ED Current Medications Medications Dose Ordered Sig/Farhat Route Start Time Stop Time Status Last Admin Dose Admin Diphenhydramine HCl 25 mg ONCE ONCE IVP 09/05/18 22:30 09/05/18 22:31 DC 09/05/18 22:23 25 MG Hyoscyamine Sulfate 0.25 mg ONCE ONCE PO 09/05/18 21:45 09/05/18 21:46 DC 09/05/18 22:19 0.25 MG Ondansetron HCl 8 mg ONCE ONCE IVP 09/05/18 21:45 09/05/18 21:46 DC 09/05/18 22:19 8 MG Vital Signs/I&O 09/05/18 21:33 Temp 99.5 Pulse 97 Resp 20 B/P (MAP) 118/85 (96) O2 Delivery Nasal Cannula Departure Communication (Admissions) 2320- after a liter of IV fluids, 25 mg Benadryl and 8 mg Zofran as well as Levsin she states she is feeling quite a bit better. I discussed the labs with her including an essentially normal white blood cell count and elevation of liver enzymes likely reflective of her GI illness. She agrees to follow-up with Dr. Morin later this week for recheck of liver function studies and she will return to ER for any persistent pain or fevers or bloody diarrhea. Impression Primary Impression: Nausea and vomiting Additional Impression: Diarrhea Disposition: 01 HOME, SELF-CARE Condition: Stable Departure-Patient Inst. Decision time for Depature: 23:22 Referrals: EWA MORIN MD (PCP/Family) Primary Care Physician Patient Instructions: [id number] Add. Discharge Instructions: Your symptoms are most likely related to the viral stomach bug. However U should return to the emergency room for any fevers, bloody stools, persistent pain that does not go away. Follow-up with Dr. Morin later this week for recheck of your liver enzymes which were slightly elevated.Eat/drink clear liquids such as pedialyte, gatorade, water. Scripts Ondansetron (Zofran Odt) 8 Mg Tab.rapdis 8 MG PO Q6H PRN for NAUSEA/VOMITING-1ST LINE, #14 TAB Prov: FABIANA OLIVAS APRN 09/05/18 Work/School Note: Work Release Form Date Seen in the Emergency Department: Sep 05, 2018 Return to Work: Sep 08, 2018 FABIANA OLIVAS APRN Sep 05, 2018 21:45
[2018-09-05 22:21] LABS: BASOPHILS % (AUTO) 0 % (0-10); EOSINOPHILS # (AUTO) 0.1 10^3/uL (0.0-0.3); EOSINOPHILS % (AUTO) 1 % (0-10); HEMATOCRIT 38 % (35-52); HEMOGLOBIN 12.4 G/DL (11.5-16.0); LYMPHOCYTES # (AUTO) 0.5 X 10^3 (1.0-4.0); LYMPHOCYTES % (AUTO) 6 % (12-44); MEAN CORPUSCULAR HEMOGLOBIN 29 PG (25-34); MEAN CORPUSCULAR HGB CONC 33 G/DL (32-36); MEAN CORPUSCULAR VOLUME 89 FL (80-99); MONOCYTES # (AUTO) 0.4 X 10^3 (0.0-1.0); MONOCYTES % (AUTO) 5 % (0-12); NEUTROPHILS # (AUTO) 6.5 X 10^3 (1.8-7.8); NEUTROPHILS % (AUTO) 88 % (42-75); PLATELET COUNT 232 10^3/uL (130-400); RED BLOOD COUNT 4.27 10^6/uL (4.35-5.85); RED CELL DISTRIBUTION WIDTH 12.5 % (10.0-14.5); WHITE BLOOD COUNT 7.4 10^3/uL (4.3-11.0)
[2018-09-05] MEDS ORDERED: diphenhydrAMINE 50 MG/ML INJ (BENADRYL) IVP ONE (22:30)
[2018-09-05 22:41] LABS: ALANINE AMINOTRANSFERASE 119 U/L (0-55); ALBUMIN 4.3 GM/DL (3.2-4.5); ALKALINE PHOSPHATASE 91 U/L (40-136); BILIRUBIN,TOTAL 0.4 MG/DL (0.1-1.0); BUN/CREATININE RATIO 23; CALCIUM 9.3 MG/DL (8.5-10.1); CARBON DIOXIDE 21 MMOL/L (21-32); CHLORIDE 108 MMOL/L (98-107); CREATININE SERUM 0.64 MG/DL (0.60-1.30); GFR ESTIMATED > 60; GLUCOSE 96 MG/DL (70-105); LIPASE 42 U/L (8-78); POTASSIUM 3.9 MMOL/L (3.6-5.0); SODIUM 141 MMOL/L (135-145); TOTAL PROTEIN 7.2 GM/DL (6.4-8.2)
[2018-09-05] MEDS ORDERED: RX-HYOSCYAMINE 0.125 MG SL (LEVSIN) PPK#6 SL STA (23:20)
[2018-09-05] MEDS ORDERED: RX-ONDANSETRON 4 MG ODT (ZOFRAN) PPK #4 PO STA (23:20)
[2018-09-05 23:24] LABS: EOSINOPHILS % (MANUAL) 1 %; LYMPHOCYTES % (MANUAL) 8 %; MONOCYTES % (MANUAL) 5 %; NEUTROPHILS % (MANUAL) 86 %; RBC MORPH NORMAL
[2018-09-05] MEDS ORDERED: ONDA8TAB9 PO (23:24)
[2018-09-05 23:46] VITALS: BP 118/85
== END 2018-09-05 23:47 | disposition home or self-care (01) ==
LOC: EDUNIT# 20:57 → ER 20:58
DX: R11.2 Nausea with vomiting, unspecified (principal); R19.7 Diarrhea, unspecified; E78.00 Pure hypercholesterolemia, unspecified; Z82.49 Family history of ischemic heart disease and other diseases of the circulatory system; Z80.3 Family history of malignant neoplasm of breast; Z80.0 Family history of malignant neoplasm of digestive organs; Z87.448 Personal history of other diseases of urinary system; Z88.5 Allergy status to narcotic agent; Z87.891 Personal history of nicotine dependence; Z98.890 Other specified postprocedural states
CPT/HCPCS: 36415; 80053; 83690; 85007; 85027; 87804

== ENCOUNTER 2018-12-15 17:10 | Emergency (ER) | payer OTHER ==
[~2018-12-15] VITALS: Ht 170.2 cm; Wt 80.3 kg
[~2018-12-15 17:10] MED LIST changes: +ONDA8TAB9 PO
--- NOTE | 2018-12-15 17:28 | ED EENT ---
History of Present Illness General Chief Complaint: Eye Problems Stated Complaint: L EYE REDNESS Nursing Triage Note: TO TRIAGE WITH COMPLAINTS OF LEFT EYE REDNESS ET MATTING STARTING YESTERDAY EVENING. Source: patient Exam Limitations: no limitations History of Present Illness Date Seen by Provider: Dec 15, 2018 Time Seen by Provider: 17:23 Initial Comments 48-year-old female who presents to the emergency room with complaints of left eye redness and matting that started yesterday evening. She denies any visual disturbances. Denies fevers. Timing/Duration: abrupt Location: eye (L) Prearrival Treatment: no prearrival treatment Associated Symptoms: denies symptoms Allergies and Home Medications Allergies Coded Allergies: codeine (Verified Allergy, Intermediate, GI UPSET/NUMBNESS IN ARMS, ) Patient Home Medication List Home Medication List Reviewed: Yes Review of Systems Review of Systems Constitutional: no symptoms reported, see HPI Eyes: See HPI, Drainage (left eye), Inflammation (left eye) All Other Systems Reviewed Negative Unless Noted: Yes Past Krzydbq-Ahyzho-Jumkoa Hx Past Med/Social Hx: Reviewed Nursing Past Med/Soc Hx Patient Social History Alcohol Use: Occasionally Uses Recreational Drug Use: No Smoking Status: Never a Smoker Type Used: Cigarettes Former Smoker, Quit: Oct 30, 1992 2nd Hand Smoke Exposure: No Recent Foreign Travel: No Contact w/Someone Who Travel: No Recent Infectious Disease Expo: No Recent Hopitalizations: Yes (10/26-STREP THROAT) Immunizations Up To Date Tetanus Booster (TDap): Less than 5yrs PED Vaccines UTD: No Date of Influenza Vaccine: Aug 25, 2018 Seasonal Allergies Seasonal Allergies: No Past Medical History Surgeries: Yes (RIGHT HAND CYST REMOVED, lymph node biopsy right axilla) Section, Gallbladder Respiratory: No Cardiac: Yes High Cholesterol Neurological: No Reproductive Disorders: No Female Reproductive Disorders: Denies Sexually Transmitted Disease: No HIV/AIDS: No Gastrointestinal: No Gall Bladder Disease Musculoskeletal: Yes (LEFT SHOULDER/NECK PAIN) Endocrine: No Loss of Vision: Bilateral Hearing Impairment: Denies Cancer: No Psychosocial: No Integumentary: No Blood Disorders: No Adverse Reaction/Blood Tranf: No (N/A) Family Medical History Reviewed Nursing Family Hx Colon cancer 19 FATHER Diabetes mellitus 19 MOTHER G8 SISTER FH: CHF (congestive heart failure) 19 FATHER 19 MOTHER FH: breast cancer 19 MOTHER Myocardial infarction 19 FATHER Thyroid disease 19 MOTHER G8 SISTER Heart Disease, Diabetes Physical Exam Vital Signs Vital Signs - First Documented 12/15/18 17:16 Temp 98.5 Pulse 70 Resp 16 B/P (MAP) 129/78 (95) Pulse Ox 99 O2 Delivery Room Air Height, Weight, BMI Height: 5'7.00" Weight: 177lbs. 8.0oz. 80.905137em; 35.9 BMI Method:Stated General Appearance: WD/WN, no apparent distress Eyes: right eye normal inspection, right eye abnormal EOM; left eye conjunctival inflammation; bilateral eye PERRL, bilateral eye EOMI Cardiovascular: normal peripheral pulses, regular rate, rhythm, no edema, no gallop, no JVD, no murmur Respiratory: chest non-tender, lungs clear, normal breath sounds, no respiratory distress, no accessory muscle use Neurologic/Psychiatric: alert, normal mood/affect, oriented x 3 Skin: normal color, warm/dry Progress/Results/Core Measures Results/Orders Vital Signs/I&O 12/15/18 17:16 Temp 98.5 Pulse 70 Resp 16 B/P (MAP) 129/78 (95) Pulse Ox 99 O2 Delivery Room Air Blood Pressure Mean: 95 Progress Progress Note : Time: 17:25 Progress Note I have seen and evaluated the patient. She has exam findings of bacterial conjunctivitis. We will be placing her antibiotic drops. She agrees with plan of care, plans for discharge, return precautions were given. Departure Impression Primary Impression: Conjunctivitis Disposition: 01 HOME, SELF-CARE Condition: Stable/Unchanged Departure-Patient Inst. Decision time for Depature: 17:25 Referrals: EWA MORIN MD (PCP/Family) Primary Care Physician Patient Instructions: Conjunctivitis ([place]) (DC) Add. Discharge Instructions: Eyedrops as as prescribed . Follow-up with your primary care provider within 1 week if no improvement. Return back to the emergency room for worsening symptoms or concerns as needed. All discharge instructions reviewed with patient and/or family. Voiced understanding. Scripts Polymyxin B Sulf/Trimethoprim (Polymyxin B-Tmp Eye Drops) 10 Ml Drops 1 DROP OP QID for 7 Days, #1 B One drop to both eyes 4 times a day for 7 days. Prov: DWIGHT GASCA 12/15/18 DWIGHT GASCA Dec 15, 2018 17:28
[2018-12-15] MEDS ORDERED: PLTR10OP OP (17:29)
[2018-12-15 17:37] VITALS: BP 129/78
== END 2018-12-15 17:37 | disposition home or self-care (01) ==
LOC: EDUNIT# 17:10 → ER 17:11
DX: H10.9 Unspecified conjunctivitis (principal); E78.00 Pure hypercholesterolemia, unspecified; Z87.19 Personal history of other diseases of the digestive system; Z88.5 Allergy status to narcotic agent; Z80.0 Family history of malignant neoplasm of digestive organs; Z82.49 Family history of ischemic heart disease and other diseases of the circulatory system; Z80.3 Family history of malignant neoplasm of breast; Z87.891 Personal history of nicotine dependence; Z98.890 Other specified postprocedural states
CPT/HCPCS: 99282

== ENCOUNTER → 2019-08-27 | Outpatient (CLI) | payer OTHER ==
[~2019-08-27] MED LIST changes: -IBUP-2055 PO; +IBUP-2473 PO; +NAPR-1071 PO; +PLTR10OP OP; +SIMV10TA26 PO; -SIMV10TA3 PO
--- NOTE | 2019-08-27 15:14 | Diagnostic Imaging Report ---
INDICATION: Routine screening. COMPARISON is made with prior mammograms from 08/21/2018 and 08/11/2017. TECHNIQUE: 2-D and 3-D bilateral screening mammography was performed with CAD. FINDINGS: Both breasts are heterogeneously dense, limiting the sensitivity of mammography. The parenchymal pattern is stable. No mass or malignant appearing microcalcifications are seen. The axillae are unremarkable. IMPRESSION: BI-RADS Category 1 No mammographic features suspicious for malignancy are identified. ACR BI-RADS Category 1: Negative. Result letter will be mailed to the patient. Note: At least 10% of breast cancer is not imaged by mammography. Dictated by: Dictated on workstation # [id number]
== END ==
LOC: RAD 10:06
PROVIDERS: ATTEND Family Medicine
DX: Z12.31 Encounter for screening mammogram for malignant neoplasm of breast (principal)
CPT/HCPCS: 77067

== ENCOUNTER 2019-11-25 19:02 | Emergency (ER) | payer BC, OTHER ==
[~2019-11-25] VITALS: Ht 175.2 cm; Wt 86.3 kg
[~2019-11-25 19:02] MED LIST changes: -NAPR-1071 PO
--- NOTE | 2019-11-25 19:25 | ED Lower Extremity ---
General Stated Complaint: R FOOT PAIN Source: patient, spouse Exam Limitations: no limitations History of Present Illness Date Seen by Provider: Nov 25, 2019 Time Seen by Provider: 19:20 Initial Comments Patient present to the ER by private conveyance with chief complaint of 3 weeks of right foot pain at the distal head of the first metatarsal. She's had a bone spur there in the past. She says there is no inciting incident. 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 Is better at rest. She takes an occasional Tylenol for it. She does not take NSAIDs nor she have a history of heart disease, kidney disease or take any blood thinners. She follows with Dr. Morin but she has not seen him for this problem yet. Allergies and Home Medications Allergies Coded Allergies: codeine (Verified Allergy, Intermediate, GI UPSET/NUMBNESS IN ARMS, 10/30/17) Home Medications Polymyxin B Sulf/Trimethoprim 10 Ml Drops, 1 DROP OP QID One drop to both eyes 4 times a day for 7 days. Prescribed by: DWIGHT GASCA on 12/15/18 1874 Patient Home Medication List Home Medication List Reviewed: Yes Review of Systems Constitutional: No chills, No fever EENTM: No ear discharge, No hearing loss Respiratory: No cough, No short of breath Cardiovascular: No chest pain, No palpitations Gastrointestinal: No abdominal pain, No nausea, No vomiting Genitourinary: No discharge, No dysuria Musculoskeletal: No back pain, No joint pain All Other Systems Reviewed Negative Unless Noted: Yes Past Tjybiza-Ampxpl-Wuvdxz Hx Patient Social History Alcohol Use: Denies Use Recreational Drug Use: No Smoking Status: Former Smoker Type Used: Cigarettes Former Smoker, Quit: Oct 30, 1992 2nd Hand Smoke Exposure: No Recent Foreign Travel: No Contact w/Someone Who Travel: No Recent Hopitalizations: Yes (10/26-STREP THROAT) Immunizations Up To Date Tetanus Booster (TDap): Less than 5yrs PED Vaccines UTD: No Date of Influenza Vaccine: Aug 25, 2018 Seasonal Allergies Seasonal Allergies: No Past Medical History Surgeries: Yes (RIGHT HAND CYST REMOVED, lymph node biopsy right axilla) Section, Gallbladder Respiratory: No Cardiac: Yes High Cholesterol Neurological: No Reproductive Disorders: No Female Reproductive Disorders: Denies Sexually Transmitted Disease: No HIV/AIDS: No Gastrointestinal: No Gall Bladder Disease Musculoskeletal: Yes (LEFT SHOULDER/NECK PAIN) Endocrine: No Loss of Vision: Bilateral Hearing Impairment: Denies Cancer: No Psychosocial: No Integumentary: No Blood Disorders: No Adverse Reaction/Blood Tranf: No (N/A) Family Medical History Colon cancer 19 FATHER Diabetes mellitus 19 MOTHER G8 SISTER FH: CHF (congestive heart failure) 19 FATHER 19 MOTHER FH: breast cancer 19 MOTHER Myocardial infarction 19 FATHER Thyroid disease 19 MOTHER G8 SISTER Heart Disease, Diabetes Physical Exam Vital Signs Capillary Refill : Height, Weight, BMI Height: 5'7.00" Weight: 177lbs. 8.0oz. 80.531586zr; 35.9 BMI Method:Stated General Appearance: WD/WN, no apparent distress Neck: full range of motion, normal inspection Cardiovascular: normal peripheral pulses, regular rate, rhythm Respiratory: no respiratory distress, no accessory muscle use Ankles: bilateral ankle non-tender, bilateral ankle normal inspection, bilateral ankle normal range of motion Feet: left foot non-tender; bilateral foot normal inspection, bilateral foot normal range of motion; left foot no evidence of injury; right foot bone tenderness (distal head of the first metatarsal) Neurologic/Psychiatric: no motor/sensory deficits, alert, normal mood/affect, oriented x 3 Skin: normal color, warm/dry Progress/Results/Core Measures Results/Orders My Orders Orders - AILYN BARAJAS Foot, Right, 3 View (11/25/19 19:18) Progress Progress Note : Time: 19:27 Progress Note Metatarsalgia? We'll get an x-ray to rule out osteoclastic lesions, tumors, fracture. We'll an orthotic shoe, recommend orthotic insoles follow-up with primary care to consider physical therapy versus podiatry. Diagnostic Imaging Diagonstic Imaging: Xray Plain Films/CT/US/NM/MRI: other (right foot) Comments NAME: FADUMOKIMBERLYN MED REC#: [id number] PT STATUS: REG ER : 1970 PHYSICIAN: AILYN BARAJAS MD ADMIT DATE: 11/25/19/ER Draft Date of Exam:11/25/19 FOOT, RIGHT, 3 VIEW INDICATION: Foot pain. COMPARISON: None. EXAMINATION: Three views of the right foot were obtained. FINDINGS: No acute fracture or dislocation. There are no focal osseous lesions. There is no soft tissue swelling. Joint spaces are well maintained. No radiopaque foreign bodies are seen. IMPRESSION: No acute fractures or dislocations of the right foot. Dictated on workstation # [id number] Dict: 11/25/191945 Trans: 11/25/191948 [facility] [id number] Interpreted by: ERASMO MICHEL MD Electronically signed by: Reviewed: Reviewed [place] Study Departure Impression Primary Impression: Pain in metatarsus of right foot Disposition: HOME, SELF-CARE Condition: Stable Departure-Patient Inst. Decision time for Depature: 19:54 Referrals: EWA MORIN MD (PCP/Family) Primary Care Physician Patient Instructions: Foot Sprain (DC) Add. Discharge Instructions: Naproxen 2 capsules [id number] twice a day on a scheduled basis for the next 2 weeks. Alternatively you can use the prescription 500 mg capsule twice a day for the next 2 weeks. You may use Tylenol 1000 mg every 8 hours as needed for breakthrough pain. Topical creams applied as necessary for pain. Wear the orthotic shoe for the next week. Follow-up with your primary care doctor for reevaluation in one to 2 weeks. Ex plore the need for physical therapy versus a referral to podiatry. Light duty for one week. Scripts Naproxen (Naprosyn) 500 Mg Tablet 500 MG PO BID, #30 TAB 0 Refills Prov: AILYN BARAJAS 11/25/19 Work/School Note: Work Release Form Date Seen in the Emergency Department: Nov 25, 2019 Return to Work: Nov 26, 2019 Restrictions: Need Release from Doctor Other Restrictions Listed Below: Light duty on right foot, minimize ambulation until 12/09/19. AILYN BARAJAS Nov 25, 2019 19:25
--- NOTE | 2019-11-25 19:49 | Diagnostic Imaging Report ---
INDICATION: Foot pain. COMPARISON: None. EXAMINATION: Three views of the right foot were obtained. FINDINGS: No acute fracture or dislocation. There are no focal osseous lesions. There is no soft tissue swelling. Joint spaces are well maintained. No radiopaque foreign bodies are seen. IMPRESSION: No acute fractures or dislocations of the right foot. Dictated by: Dictated on workstation # [id number]
[2019-11-25] MEDS ORDERED: NAPR-1071 PO (19:56)
[2019-11-25] MEDS ORDERED: RX-NAPROXEN (NAPROSYN) 250 MG TAB PPK#4 PO ONE (20:18)
[2019-11-25] MEDS ORDERED: RX-NAPROXEN (NAPROSYN) 250 MG TAB PPK#4 PO STA (20:21)
[2019-11-25 20:45] VITALS: BP 170/82
== END 2019-11-25 20:45 | disposition home or self-care (01) ==
LOC: EDUNIT# 19:02 → ER 19:03
DX: M77.41 Metatarsalgia, right foot (principal); E78.00 Pure hypercholesterolemia, unspecified; Z88.5 Allergy status to narcotic agent; Z87.891 Personal history of nicotine dependence; Z80.0 Family history of malignant neoplasm of digestive organs; Z82.49 Family history of ischemic heart disease and other diseases of the circulatory system; Z80.3 Family history of malignant neoplasm of breast
CPT/HCPCS: 73630

== ENCOUNTER → 2020-08-28 | Outpatient (CLI) | payer BC ==
[~2020-08-28] MED LIST changes: +NAPR-1071 PO
--- NOTE | 2020-08-28 21:13 | Diagnostic Imaging Report ---
EXAM: Digital mammogram, bilateral screening. COMPARISON: This study was compared to the prior exam of 08/27/2019, 08/21/2018 and 08/11/2017. There are no current complaints. 3D digital tomography Bilateral History: Routine screening Technique: Bilateral 3d digital tomographic views were obtained with [employer]bloia and reviewed on a [employer] workstation. In addition, CAD - computer aided detection was utilized. Findings: Breast Tissue Density B : The breast tissue is composed of mixed fatty and fibroglandular tissue. There are no suspicious masses, microcalcifications or areas of architectural distortion. Impression: No suspicious findings. ACR BI-RADS Category 1: Negative. Note: At least 10% of breast cancer is not imaged by mammography. Normal interval followup. The patient will receive a letter with the results in the mail. A mammogram does not have 100% sensitivity and therefore a negative imaging study should not delay further work up of a suspicious abnormality. Patient information is entered into the [facility] reminder system using ForeUp with a target due date for the next screening mammogram. The patient will receive a reminder. "Our facility is accredited by the [employer] Mammography Program." Dictated on workstation # [id number]
== END ==
LOC: RAD 14:14
PROVIDERS: ATTEND Family Medicine
DX: Z12.31 Encounter for screening mammogram for malignant neoplasm of breast (principal)
CPT/HCPCS: 77063; 77067

== ENCOUNTER 2020-09-13 18:54 | Emergency (ER) | payer BC ==
[~2020-09-13] VITALS: Ht 170 cm; Wt 88.2 kg
[2020-09-13] MEDS ORDERED: LACTATED RINGERS 1,000 ML IV ONE (19:16)
--- NOTE | 2020-09-13 19:22 | ED Abdominal Pain ---
General Stated Complaint: LEFT SIDED ABD PAIN;NAUSEA Source of Information: Patient History of Present Illness Date Seen by Provider: Sep 13, 2020 Time Seen by Provider: 19:11 Initial Comments PT ARRIVES VIA POV FROM HOME STATES SHE HAS HAD NAUSEA ALL WEEK AND VOMITED LAST NIGHT. NURSE AT WORK GAVE HER A ZOFRAN AT 0900 THIS AM, WHICH HELPED. PT HAS EATING NORMALLY TODAY--HAD STEAK FRITES, [place] AND CHEESE AND PEACHES FOR DINNER AT 1915 PT HAS HAD PAIN IN LEFT FLANK AND LLQ ALL DAY TODAY, HAD A LITTLE BIT LAST NIGHT WELL--HAS NOT TAKEN ANYTHING FOR PAIN LAST BM WAS YESTERDAY--HAD NORMAL BM YESTERDAY AM, AND SMALL NORMAL BM LAST NIGHT. NO FEVER NO URINARY SYMPTOMS NO RESPIRATORY SYMPTOMS NO HISTORY OF SIMILAR NO KNOWN SICK CONTACTS OR SUSPICIOUS FOODS NO KNOWN EXPOSURE TO COVID-19 PT HAS HAD CHOLECYSTECTOMY AND GASTRIC SLEEVE SURGERY NO PRIOR GI PROBLEMS LMP--LAST WEEK, BLEED FOR 1 1/2 DAYS. NO CONTROL. PCP: DR. MORIN Allergies and Home Medications Allergies Coded Allergies: codeine (Verified Allergy, Intermediate, GI UPSET/NUMBNESS IN ARMS, 10/30/17) Home Medications Dicyclomine HCl 20 Mg Tablet, 20 MG PO Q6H Prescribed by: KATHERINE IBANEZ on 09/13/202041 Hyoscyamine Sulfate 0.125 Mg Tab.subl, 0.25 MG SL Q4H Prescribed by: KATHERINE IBANEZ on 09/13/202041 L. Acidophilus/Pectin, [place] 1 Each Capsule, 2 EACH PO QID Prescribed by: KATHERINE IBANEZ on 09/13/202041 Naproxen 500 Mg Tablet, 500 MG PO BID Prescribed by: AILYN BARAJAS on 11/25/191955 Ondansetron 8 Mg Tab.rapdis, 8 MG PO Q6H Prescribed by: KATHERINE IBANEZ on 09/13/202041 Pantoprazole Sodium 40 Mg Tablet.dr, 40 MG PO DAILY Prescribed by: KATHERINE IBANEZ on 09/13/202041 Polymyxin B Sulf/Trimethoprim 10 Ml Drops, 1 DROP OP QID One drop to both eyes 4 times a day for 7 days. Prescribed by: DWIGHT GASCA on 12/15/18 1729 Patient Home Medication List Home Medication List Reviewed: Yes Review of Systems Review of Systems Constitutional: no symptoms reported; No chills, No diaphoresis, No fever Respiratory: No Symptoms Reported Gastrointestinal: See HPI, Abdominal Pain; Denies Constipated, Denies Diarrhea; Nausea; Denies Poor Appetite, Denies Poor Fluid Intake; Vomiting Genitourinary: Denies Burning, Denies Frequency; Flank Pain; Denies Hematuria, Denies Pain, Denies Urgency Musculoskeletal: see HPI, back pain Skin: no symptoms reported Psychiatric/Neurological: No Symptoms Reported Endocrine: No Symptoms Reported Hematologic/Lymphatic: No Symptoms Reported Past Naztlwk-Peoqfk-Oigrgl Hx Past Med/Social Hx: Reviewed and Corrections made Patient Social History Alcohol Use: Denies Use Smoking Status: Former Smoker Type Used: Cigarettes Former Smoker, Quit: Oct 30, 1992 2nd Hand Smoke Exposure: No Recent Foreign Travel: No Contact w/Someone Who Travel: No Recent Hopitalizations: Yes (10/26-STREP THROAT) Immunizations Up To Date Tetanus Booster (TDap): Less than 5yrs PED Vaccines UTD: No Date of Influenza Vaccine: Aug 25, 2018 Seasonal Allergies Seasonal Allergies: No Past Medical History Surgeries: Yes (RIGHT HAND CYST REMOVED, lymph node biopsy right axilla;GASTRIC SLEEVE 2016) Abdominal, Section, Gallbladder, Orthopedic Respiratory: No Cardiac: Yes High Cholesterol Neurological: No Reproductive Disorders: No Female Reproductive Disorders: Denies Sexually Transmitted Disease: No HIV/AIDS: No Gastrointestinal: Yes (CHOLECYSTECTOMY; GASTRIC SLEEVE 2016; FATTY LIVER) Liver Disease/Jaundice, Gall Bladder Disease Musculoskeletal: Yes (LEFT SHOULDER/NECK PAIN) Endocrine: No (MORBID OBESITY) Loss of Vision: Bilateral Hearing Impairment: Denies Cancer: No Psychosocial: No Integumentary: No Blood Disorders: No Adverse Reaction/Blood Tranf: No (N/A) Family Medical History Colon cancer 19 FATHER Diabetes mellitus 19 MOTHER G8 SISTER FH: CHF (congestive heart failure) 19 FATHER 19 MOTHER FH: breast cancer 19 MOTHER Myocardial infarction 19 FATHER Thyroid disease 19 MOTHER G8 SISTER Heart Disease, Diabetes Physical Exam Vital Signs Vital Signs - First Documented 09/13/20 09/13/20 19:11 20:56 Temp 35.4 Pulse 72 Resp 16 B/P (MAP) 125/80 (95) Pulse Ox 100 O2 Delivery Room Air Capillary Refill : Height/Weight/BMI Height: 5'7.00" Weight: 177lbs. 8.0oz. 80.583136dl; 28.00 BMI Method:Stated General Appearance: WD/WN, no apparent distress, obese, other (WALKS UPRIGHT AND MOVES WITHOUT DIFFICULTY. 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, no motor/sensory deficits, alert, normal mood/affect, oriented x 3 Skin: normal color, warm/dry; No rash; tattoos/piercings Progress/Results/Core Measures Results/Orders Lab Results Laboratory Tests Test 09/13/20 19:18 09/13/20 19:25 Range/Units Urine Color YELLOW Urine Clarity CLEAR Urine pH 7.0 5-9 Urine Specific [place] 1.020 1.016-1.022 Urine Protein NEGATIVE NEGATIVE Urine Glucose (UA) NEGATIVE NEGATIVE Urine Ketones NEGATIVE NEGATIVE Urine Nitrite NEGATIVE NEGATIVE Urine Bilirubin NEGATIVE NEGATIVE Urine Urobilinogen 1.0 < = 1.0 MG/DL Urine Leukocyte Esterase NEGATIVE NEGATIVE Urine RBC (Auto) NEGATIVE NEGATIVE Urine RBC NONE /HPF Urine WBC 0-2 /HPF Urine Squamous Epithelial Cells 0-2 /HPF Urine Crystals PRESENT H /LPF Urine Amorphous Sediment FEW IDA PHOSPHATE H /LPF Urine Bacteria TRACE /HPF Urine Casts NONE /LPF Urine Mucus SMALL H /LPF Urine Culture Indicated NO White Blood Count 6.4 4.3-11.0 10^3/uL Red Blood Count 4.29 3.80-5.11 10^6/uL Hemoglobin 12.7 11.5-16.0 g/dL Hematocrit 38 35-52 % Mean Corpuscular Volume 89 80-99 fL Mean Corpuscular Hemoglobin 30 25-34 pg Mean Corpuscular Hemoglobin Concent 33 32-36 g/dL Red Cell Distribution Width 12.3 10.0-14.5 % Platelet Count 248 130-400 10^3/uL Mean Platelet Volume 9.7 9.0-12.2 fL Immature Granulocyte % (Auto) 0 % Neutrophils (%) (Auto) 58 42-75 % Lymphocytes (%) (Auto) 28 12-44 % Monocytes (%) (Auto) 7 0-12 % Eosinophils (%) (Auto) 5 0-10 % Basophils (%) (Auto) 1 0-10 % Neutrophils # (Auto) 3.7 1.8-7.8 10^3/uL Lymphocytes # (Auto) 1.8 1.0-4.0 10^3/uL Monocytes # (Auto) 0.5 0.0-1.0 10^3/uL Eosinophils # (Auto) 0.3 0.0-0.3 10^3/uL Basophils # (Auto) 0.0 0.0-0.1 10^3/uL Immature Granulocyte # (Auto) 0.0 0.0-0.1 10^3/uL Sodium Level 142 135-145 MMOL/L Potassium Level 4.0 3.6-5.0 MMOL/L Chloride Level 105 98-107 MMOL/L Carbon Dioxide Level 26 21-32 MMOL/L Anion Gap 11 5-14 MMOL/L Blood Urea Nitrogen 20 H 7-18 MG/DL Creatinine 0.70 0.60-1.30 MG/DL Estimat Glomerular Filtration Rate > 60 BUN/Creatinine Ratio 29 Glucose Level 96 70-105 MG/DL Calcium Level 9.3 8.5-10.1 MG/DL Corrected Calcium 9.1 8.5-10.1 MG/DL Total Bilirubin 0.2 0.1-1.0 MG/DL Aspartate Amino Transf (AST/SGOT) 45 H 5-34 U/L Alanine Aminotransferase (ALT/SGPT) 64 H 0-55 U/L Alkaline Phosphatase 83 40-136 U/L Total Protein 7.5 6.4-8.2 GM/DL Albumin 4.3 3.2-4.5 GM/DL Amylase Level 86 25-125 U/L Lipase 87 H 8-78 U/L My Orders Orders - KATHERINE IBANEZ K DO Ua Culture If Indicated (09/13/20 19:11) Ed Iv/Invasive Line Start (09/13/20 19:16) Urine Bedside (09/13/20 19:16) Amylase (09/13/20 19:16) Cbc With Automated Diff (09/13/20 19:16) Comprehensive Metabolic Panel (09/13/20 19:16) Lipase (09/13/20 19:16) Ed Iv/Invasive Line Start (09/13/20 19:16) Lactated Ringers (Lr 1000 Ml Iv Solution (09/13/20 19:16) Ondansetron Injection (Zofran Injectio (09/13/20 19:30) Ct Abdomen/Pelvis W (09/13/20 19:55) Acute Abd Series (09/13/20 19:55) Ketorolac Injection (Toradol Injection) (09/13/20 19:55) Iohexol Injection (Omnipaque 350 Mg/Ml 1 (09/13/20 20:00) Received Contrast (Hold Metformin- Contr (09/13/20 20:00) Ns (Ivpb) (Sodium Chloride 0.9% Ivpb Bag (09/13/20 20:00) Rx-Hyoscyamine Tab (Rx-Levsin Sl) (09/13/20 20:43) Rx-Dicyclomine Capsule (Rx-Bentyl Capsul (09/13/20 20:43) Rx-Ondansetron Po (Rx-Zofran Po) (09/13/20 20:43) Medications Given in ED Current Medications Medications Dose Ordered Sig/Farhat Route Start Time Stop Time Status Last Admin Dose Admin Iohexol 100 ml ONCE ONCE IV 09/13/20 20:00 09/13/20 20:02 DC 09/13/20 20:18 100 ML Lactated Ringer's 1,000 ml @ 0 mls/hr Q0M ONCE IV 09/13/20 19:16 09/13/20 19:17 DC 09/13/20 19:33 999 MLS/HR Ondansetron HCl 4 mg ONCE ONCE IVP 09/13/20 19:30 09/13/20 19:31 DC 09/13/20 19:33 4 MG Sodium Chloride 100 ml ONCE ONCE IV 09/13/20 20:00 09/13/20 20:02 DC 09/13/20 20:18 100 ML Vital Signs/I&O 09/13/20 09/13/20 19:11 20:56 Temp 35.4 35.4 Pulse 72 69 Resp 16 16 B/P (MAP) 125/80 (95) 122/79 (95) Pulse Ox 100 O2 Delivery Room Air Room Air 09/14/20 00:00 Intake Total 1000 ml Balance 1000 ml Progress Progress Note : Progress Note GIVEN IV FLUIDS, ZOFRAN AND TORADOL WITH IMPROVEMENT IN SYMPTOMS Diagnostic Imaging Comments ABDOMEN XRAYS--NO ACUTE PROCESS, CHRONIC AND POST OP CHANGES, PER RADIOLOGIST REPORT CT ABDOMEN / PELVIS--PER RADIOLOGIST REPORT AT 2035 FINDINGS: The visualized lung bases are clear. Cholecystectomy. The liver and spleen are unremarkable. The adrenal glands are unremarkable. Postsurgical changes are noted along the greater curvature of the stomach. The kidneys and bilateral ureters are unremarkable. No aneurysmal dilatation of the abdominal aorta. The pancreas is unremarkable. The urinary bladder is unremarkable. The uterus and adnexal structures are unremarkable for age. The appendix is unremarkable. No bowel obstruction or pneumatosis. No significant adenopathy, free air or free fluid within the abdomen or pelvis. Mild mural thickening within loops of small bowel within the left abdomen. Degenerative changes associated with the pubic symphysis. Scattered osseous degenerative changes without acute osseous abnormality. IMPRESSION: 1. Mild mural thickening within scattered loops of small bowel from the left abdomen, felt to relate to poor distention versus enteritis. No bowel obstruction or pneumatosis. 2. Cholecystectomy. 3. Additional findings as above. Reviewed: Reviewed by Me Departure Impression Primary Impression: Gastroenteritis Additional Impression: FATTY LIVER DISEASE Disposition: HOME, SELF-CARE Condition: Improved Departure-Patient Inst. Referrals: EWA MORIN MD (PCP/Family) Primary Care Physician Patient Instructions: [id number] Add. Discharge Instructions: CLEAR LIQUIDS--WATER, BROTH, JELLO, GATORADE WHEN YOU ARE BETTER, ADD BRATS DIET TO CLEAR LIQUIDS--BANANAS, RICE, APPLESAUCE, TOAST, SALTINES FOLLOW UP WITH YOUR DR IN 2-3 DAYS IF NO BETTER, RETURN TO ER IF WORSE Scripts L. Acidophilus/Pectin, [place] (Acidophilus Capsule) 1 Each Capsule 2 EACH PO QID, #40 CAP Prov: SHAMAR,KATHERINE K DO 09/13/20 Pantoprazole Sodium (Protonix) 40 Mg Tablet.dr 40 MG PO DAILY, #15 TAB Prov: SHAMAR,KATHERINE K DO 09/13/20 Ondansetron (Ondansetron Odt) 8 Mg Tab.rapdis 8 MG PO Q6H, #10 TAB Prov: SHAMARKATHERINE K DO 09/13/20 Dicyclomine HCl (Dicyclomine HCl) 20 Mg Tablet 20 MG PO Q6H for Abdominal Pain, #20 TAB Prov: KATHERINE IBANEZ DO 09/13/20 Hyoscyamine Sulfate (Levsin-Sl) 0.125 Mg Tab.subl 0.25 MG SL Q4H, #10 TAB Prov: KATHERINE IBANEZ DO 09/13/20 KATHERINE IBANEZ DO Sep 13, 2020 19:22
[2020-09-13 19:25] LABS: BILIRUBIN,URINE NEGATIVE (NEGATIVE); CLARITY,URINE CLEAR; COLOR,URINE YELLOW; GLUCOSE, URINE (UA) NEGATIVE (NEGATIVE); KETONES,URINE NEGATIVE (NEGATIVE); LEUKOCYTE ESTERASE ,URINE NEGATIVE (NEGATIVE); NITRITE,URINE NEGATIVE (NEGATIVE); PROTEIN,URINE NEGATIVE (NEGATIVE)
[2020-09-13] MEDS ORDERED: ONDANSETRON 4 MG/2 ML (SDV) Z0FRAN IVP ONE (19:30)
[2020-09-13 19:31] LABS: BACTERIA,URINE TRACE /HPF; SQUAMOUS EPITHELIAL CELL,UR 0-2 /HPF; WBC,URINE 0-2 /HPF
[2020-09-13 19:32] LABS: AMORPHOUS SEDIMENT,UR FEW AMOR PHOSPHATE /LPF
[2020-09-13 19:33] LABS: BASOPHILS % (AUTO) 1 % (0-10); EOSINOPHILS # (AUTO) 0.3 10^3/uL (0.0-0.3); EOSINOPHILS % (AUTO) 5 % (0-10); HEMATOCRIT 38 % (35-52); HEMOGLOBIN 12.7 g/dL (11.5-16.0); LYMPHOCYTES # (AUTO) 1.8 10^3/uL (1.0-4.0); LYMPHOCYTES % (AUTO) 28 % (12-44); MEAN CORPUSCULAR HEMOGLOBIN 30 pg (25-34); MEAN CORPUSCULAR HGB CONC 33 g/dL (32-36); MEAN CORPUSCULAR VOLUME 89 fL (80-99); MEAN PLATELET VOLUME 9.7 fL (9.0-12.2); MONOCYTES # (AUTO) 0.5 10^3/uL (0.0-1.0); MONOCYTES % (AUTO) 7 % (0-12); NEUTROPHILS # (AUTO) 3.7 10^3/uL (1.8-7.8); NEUTROPHILS % (AUTO) 58 % (42-75); PLATELET COUNT 248 10^3/uL (130-400); WHITE BLOOD COUNT 6.4 10^3/uL (4.3-11.0)
[2020-09-13 19:44] LABS: ALBUMIN 4.3 GM/DL (3.2-4.5); CHLORIDE 105 MMOL/L (98-107); SODIUM 142 MMOL/L (135-145)
[2020-09-13 19:45] LABS: AMYLASE 86 U/L (25-125); CALCIUM 9.3 MG/DL (8.5-10.1)
[2020-09-13 19:46] LABS: GLUCOSE 96 MG/DL (70-105); TOTAL PROTEIN 7.5 GM/DL (6.4-8.2)
[2020-09-13 19:47] LABS: CARBON DIOXIDE 26 MMOL/L (21-32)
[2020-09-13 19:48] LABS: BILIRUBIN,TOTAL 0.2 MG/DL (0.1-1.0)
[2020-09-13 19:50] LABS: ALKALINE PHOSPHATASE 83 U/L (40-136); GFR ESTIMATED > 60
[2020-09-13 19:51] LABS: BUN/CREATININE RATIO 29
[2020-09-13 19:53] LABS: ALANINE AMINOTRANSFERASE 64 U/L (0-55); LIPASE 87 U/L (8-78)
[2020-09-13] MEDS ORDERED: KETOROLAC 30 MG/ML VIAL IVP STA (19:55)
[2020-09-13] MEDS ORDERED: HOLD METFORMIN - RECEIVED CONTRAST 20 ML VIAL IV SCH (20:00)
[2020-09-13] MEDS ORDERED: NS 100 ML (IVPB) BAG IV ONE (20:00)
[2020-09-13] MEDS ORDERED: IOHEXOL 350 MG/ML 100 ML (OMNIPAQUE 350) VIAL IV ONE (20:00)
--- NOTE | 2020-09-13 20:18 | Diagnostic Imaging Report ---
INDICATION: Abdominal pain. COMPARISON: Radiographs of the chest dated 01/02/2016. TECHNIQUE: Four radiographs of the abdomen and chest dated September 13, 2020. FINDINGS: The cardiac silhouette and pulmonary vasculature are within normal limits. The lungs are clear. No pleural effusion. No pneumothorax. No acute osseous abnormality. Surgical clips are identified overlying the left upper abdomen. Additional surgical clips are seen overlying the right upper abdomen. The liver appears enlarged, measuring near 22 cm, likely accentuated by technique and patient body habitus.. Gas and stool is noted throughout the colon, including extending to the lower pelvis. No dilated loop of small bowel. No differential air-fluid level. No free air. No suspicious calcification overlying the renal shadows. Sclerosis and degenerative changes associated with the pubic symphysis. No acute osseous abnormality. IMPRESSION: 1. Postsurgical and chronic findings within the abdomen without acute abnormality. 2. Prominence of the liver, likely simply related to technique and body habitus. Dictated by: Dictated on workstation # [id number]
--- NOTE | 2020-09-13 20:32 | Diagnostic Imaging Report ---
PROCEDURE: CT abdomen and pelvis with contrast. TECHNIQUE: Multiple contiguous axial images were obtained through the abdomen and pelvis after administration of intravenous contrast. Auto Exposure Controls were utilized during the CT exam to meet ALARA standards for radiation dose reduction. All CT scans use one or more of the following dose optimizing techniques: automated exposure control, MA and/or KvP adjustment based on patient size and exam type or iterative reconstruction. INDICATION: Left flank pain. COMPARISON: Radiographs from the same date as well as CT dated 02/27/2017. FINDINGS: The visualized lung bases are clear. Cholecystectomy. The liver and spleen are unremarkable. The adrenal glands are unremarkable. Postsurgical changes are noted along the greater curvature of the stomach. The kidneys and bilateral ureters are unremarkable. No aneurysmal dilatation of the abdominal aorta. The pancreas is unremarkable. The urinary bladder is unremarkable. The uterus and adnexal structures are unremarkable for age. The appendix is unremarkable. No bowel obstruction or pneumatosis. No significant adenopathy, free air or free fluid within the abdomen or pelvis. Mild mural thickening within loops of small bowel within the left abdomen. Degenerative changes associated with the pubic symphysis. Scattered osseous degenerative changes without acute osseous abnormality. IMPRESSION: 1. Mild mural thickening within scattered loops of small bowel from the left abdomen, felt to relate to poor distention versus enteritis. No bowel obstruction or pneumatosis. 2. Cholecystectomy. 3. Additional findings as above. Dictated by: Dictated on workstation # [id number]
[2020-09-13] MEDS ORDERED: ONDA8TAB13 PO (20:42)
[2020-09-13] MEDS ORDERED: PANT40TA2 PO (20:42)
[2020-09-13] MEDS ORDERED: HYOS0.1283 SL (20:42)
[2020-09-13] MEDS ORDERED: L. A1CAP11 PO (20:42)
[2020-09-13] MEDS ORDERED: DICY20TA10 PO (20:42)
[2020-09-13] MEDS ORDERED: RX-DICYCLOMINE 10 MG (BENTYL) CAP PPK#4 PO STA (20:43)
[2020-09-13] MEDS ORDERED: RX-HYOSCYAMINE 0.125 MG SL (LEVSIN) PPK#6 SL STA (20:43)
[2020-09-13] MEDS ORDERED: RX-ONDANSETRON 4 MG ODT (ZOFRAN) PPK #4 PO STA (20:43)
[2020-09-13 20:56] VITALS: BP 122/79
== END 2020-09-13 20:56 | disposition home or self-care (01) ==
LOC: EDUNIT# 18:54 → ER 18:56
DX: K52.9 Noninfective gastroenteritis and colitis, unspecified (principal); K76.0 Fatty (change of) liver, not elsewhere classified; E66.01 Morbid (severe) obesity due to excess calories; Z68.28 Body mass index [BMI] 28.0-28.9, adult; Z80.0 Family history of malignant neoplasm of digestive organs; Z83.3 Family history of diabetes mellitus; Z80.3 Family history of malignant neoplasm of breast; Z82.49 Family history of ischemic heart disease and other diseases of the circulatory system; Z88.5 Allergy status to narcotic agent; Z87.891 Personal history of nicotine dependence
CPT/HCPCS: 36415; 74022; 74177; 80053; 81000; 82150; 83690; 84703; 85025

== ENCOUNTER → 2021-02-02 | Outpatient (CLI) | payer BC ==
[~2021-02-02] MED LIST changes: +DICY20TA10 PO; +HYOS0.1283 SL; +L. A1CAP11 PO; +ONDA8TAB13 PO; +PANT40TA2 PO
--- NOTE | 2021-02-02 15:43 | Diagnostic Imaging Report ---
PROCEDURE: US non-OB pelvis comp/trans. TECHNIQUE: Multiple realtime grayscale images were obtained of the pelvis in various projections, endovaginally. Transabdominal imaging was also performed. INDICATION: Pelvic pain. FINDINGS: Uterus measures 8.0 x 3.8 x 5.0 cm. Endometrial stripe measures 5 mm. No endometrial or myometrial mass. Right ovary measures 3.0 x 2.0 x 1.2 cm. Left ovary measures 2.6 x 1.9 x 2.7 cm. There is normal blood flow to both ovaries. There is no free fluid. There is no adnexal mass. IMPRESSION: Normal pelvic ultrasound. Dictated by: Dictated on workstation # [id number]
== END ==
LOC: RAD 10:03
PROVIDERS: ATTEND Family Medicine
DX: N93.9 Abnormal uterine and vaginal bleeding, unspecified (principal)
CPT/HCPCS: 76830; 76856

== ENCOUNTER 2021-03-06 19:00 | Emergency (ER) | payer BC ==
[~2021-03-06] VITALS: Ht 170.1 cm; Wt 88.2 kg
[2021-03-06] MEDS ORDERED: fentaNYL INJ 100 MCG/2 ML AMP ONE ×2 (19:06→19:13)
[2021-03-06 19:24] LABS: MEAN PLATELET VOLUME 10.1 fL (9.0-12.2)
[2021-03-06] MEDS ORDERED: NS IV 1000 ML 1,000 ML IV SCH (19:30)
[2021-03-06] MEDS ORDERED: fentaNYL INJ 100 MCG/2 ML AMP IVP ONE ×3 (19:30→20:00)
[2021-03-06 19:38] LABS: ALANINE AMINOTRANSFERASE 45 U/L (0-55); ALBUMIN 4.5 GM/DL (3.2-4.5); ALKALINE PHOSPHATASE 97 U/L (40-136); BILIRUBIN,DIRECT 0.1 MG/DL (0.0-0.3); BILIRUBIN,INDIRECT 0.1 MG/DL; BILIRUBIN,TOTAL 0.2 MG/DL (0.1-1.0); BUN/CREATININE RATIO 30; CALCIUM 9.7 MG/DL (8.5-10.1); CARBON DIOXIDE 25 MMOL/L (21-32); CHLORIDE 106 MMOL/L (98-107); CREATININE SERUM 0.66 MG/DL (0.60-1.30); GFR ESTIMATED > 60; GLUCOSE 121 MG/DL (70-105); POTASSIUM 3.6 MMOL/L (3.6-5.0); SODIUM 141 MMOL/L (135-145); TOTAL PROTEIN 7.9 GM/DL (6.4-8.2)
[2021-03-06] MEDS ORDERED: IOHEXOL 350 MG/ML 100 ML (OMNIPAQUE 350) VIAL IV ONE (20:00)
[2021-03-06] MEDS ORDERED: CATHETER FLUSH 10 ML SYR IV PRN (20:00)
[2021-03-06] MEDS ORDERED: HOLD METFORMIN - RECEIVED CONTRAST 20 ML VIAL IV SCH (20:00)
[2021-03-06] MEDS ORDERED: NS 100 ML (IVPB) BAG IV ONE (20:00)
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
--- NOTE | 2021-03-06 20:12 | Diagnostic Imaging Report ---
INDICATION: Trauma FINDINGS: The lungs are clear. No failure, effusion or pneumothorax. IMPRESSION: Negative Dictated by: Dictated on workstation # [id number]
--- NOTE | 2021-03-06 20:15 | Diagnostic Imaging Report ---
INDICATION: Pain FINDINGS: 3 view shoulder showed no fracture, dislocation or acute articular irregularity. IMPRESSION: Negative Dictated by: Dictated on workstation # [id number]
--- NOTE | 2021-03-06 20:16 | Diagnostic Imaging Report ---
INDICATION: Pain FINDINGS: 3 view right wrist showed no fracture, dislocation or acute appearing articular irregularity. IMPRESSION: No acute appearing abnormality. Dictated by: Dictated on workstation # [id number]
[2021-03-06] MEDS ORDERED: HYDROcodone/APAP 5 MG/325 MG (LORTAB) TAB PO ONE (20:30)
--- NOTE | 2021-03-06 20:32 | Diagnostic Imaging Report ---
INDICATION: Elbow pain FINDINGS: There is presumed contrast media peripheral to the Angiocath, likely a mild degree of extravasation. The radiocapitellar and humeral capitellar relationships are normal. No suspicious foreign body. No fracture, no joint effusion or displaced fat pads. IMPRESSION: Intact bony elbow. Small amount of contrast peripheral to the Angiocath in the antecubital fossa is likely a small amount of contrast extravasation from earlier injection. Dictated by: Dictated on workstation # [id number]
[2021-03-06] MEDS ORDERED: ONDA4TAB11 PO (21:11)
[2021-03-06] MEDS ORDERED: ACHD5005 PO (21:11)
[2021-03-06] MEDS ORDERED: CYCL10TA9 PO (21:11)
[2021-03-06 21:26] LABS: BILIRUBIN,URINE NEGATIVE (NEGATIVE); CLARITY,URINE CLEAR; COLOR,URINE YELLOW; GLUCOSE, URINE (UA) NEGATIVE (NEGATIVE); KETONES,URINE NEGATIVE (NEGATIVE); LEUKOCYTE ESTERASE ,URINE NEGATIVE (NEGATIVE); NITRITE,URINE NEGATIVE (NEGATIVE); PH,URINE 7.5 (5-9); PROTEIN,URINE TRACE (NEGATIVE)
[2021-03-06 21:32] LABS: BACTERIA,URINE NEGATIVE /HPF
[2021-03-06 21:55] VITALS: BP 96/58
== END 2021-03-06 21:59 | disposition home or self-care (01) ==
LOC: EDUNIT# 19:00 → ER 19:02
DX: S06.0X9A Concussion with loss of consciousness of unspecified duration, initial encounter (principal); S80.211A Abrasion, right knee, initial encounter; E66.01 Morbid (severe) obesity due to excess calories; R40.2410 Glasgow coma scale score 13-15, unspecified time; Z88.5 Allergy status to narcotic agent; Z87.891 Personal history of nicotine dependence; Z68.30 Body mass index [BMI] 30.0-30.9, adult; V86.99XA Unspecified occupant of other special all-terrain or other off-road motor vehicle injured in nontraffic accident, initial encounter
CPT/HCPCS: 70450; 71045; 71260; 72125; 73030; 73080; 73110; 74177; 80048; 80076; 81000; 84703; 85027; 93041; 99291; 99292; G0480; 36415; 80320

== ENCOUNTER 2021-05-25 02:24 | Emergency (ER) | payer BC ==
[~2021-05-25] VITALS: Ht 170 cm; Wt 83.0 kg
[~2021-05-25 02:24] MED LIST changes: +ACHD5005 PO; +CYCL10TA9 PO; +ONDA4TAB11 PO
[2021-05-25] MEDS ORDERED: KETOROLAC 30 MG/ML VIAL IVP STA (02:38)
[2021-05-25 02:47] LABS: BILIRUBIN,URINE NEGATIVE (NEGATIVE); CLARITY,URINE CLEAR; COLOR,URINE YELLOW; GLUCOSE, URINE (UA) NEGATIVE (NEGATIVE); KETONES,URINE NEGATIVE (NEGATIVE); LEUKOCYTE ESTERASE ,URINE NEGATIVE (NEGATIVE); NITRITE,URINE NEGATIVE (NEGATIVE); PROTEIN,URINE NEGATIVE (NEGATIVE)
[2021-05-25 02:55] LABS: BASOPHILS % (AUTO) 1 % (0-10); EOSINOPHILS # (AUTO) 0.2 10^3/uL (0.0-0.3); EOSINOPHILS % (AUTO) 4 % (0-10); HEMATOCRIT 39 % (35-52); HEMOGLOBIN 12.9 g/dL (11.5-16.0); LYMPHOCYTES # (AUTO) 1.7 10^3/uL (1.0-4.0); LYMPHOCYTES % (AUTO) 28 % (12-44); MEAN CORPUSCULAR HEMOGLOBIN 30 pg (25-34); MEAN CORPUSCULAR HGB CONC 33 g/dL (32-36); MEAN CORPUSCULAR VOLUME 91 fL (80-99); MEAN PLATELET VOLUME 9.5 fL (9.0-12.2); MONOCYTES # (AUTO) 0.6 10^3/uL (0.0-1.0); MONOCYTES % (AUTO) 9 % (0-12); NEUTROPHILS # (AUTO) 3.5 10^3/uL (1.8-7.8); NEUTROPHILS % (AUTO) 58 % (42-75); PLATELET COUNT 264 10^3/uL (130-400)
[2021-05-25 03:06] LABS: BACTERIA,URINE MODERATE /HPF; SQUAMOUS EPITHELIAL CELL,UR 25-50 /HPF; WBC,URINE 0-2 /HPF
[2021-05-25 03:11] LABS: ALBUMIN 4.2 GM/DL (3.2-4.5)
[2021-05-25 03:12] LABS: CHLORIDE 107 MMOL/L (98-107); POTASSIUM 3.6 MMOL/L (3.6-5.0); SODIUM 144 MMOL/L (135-145)
[2021-05-25 03:13] LABS: AMYLASE 71 U/L (25-125)
[2021-05-25 03:14] LABS: GLUCOSE 92 MG/DL (70-105); TOTAL PROTEIN 7.1 GM/DL (6.4-8.2)
[2021-05-25 03:15] LABS: CARBON DIOXIDE 25 MMOL/L (21-32)
[2021-05-25 03:16] LABS: BILIRUBIN,TOTAL 0.2 MG/DL (0.1-1.0)
[2021-05-25 03:17] LABS: ALKALINE PHOSPHATASE 85 U/L (40-136)
[2021-05-25 03:18] LABS: CREATININE SERUM 0.68 MG/DL (0.60-1.30); GFR ESTIMATED > 60
[2021-05-25 03:19] LABS: BUN/CREATININE RATIO 26
[2021-05-25 03:21] LABS: ALANINE AMINOTRANSFERASE 33 U/L (0-55); LIPASE 60 U/L (8-78)
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
[2021-05-25] MEDS ORDERED: LIDO700A45 TP (04:45)
[2021-05-25] MEDS ORDERED: TRAM-42 PO (04:45)
[2021-05-25] MEDS ORDERED: CYCL10TA9 PO (04:45)
[2021-05-25 04:52] VITALS: BP 112/63
--- NOTE | 2021-05-25 06:45 | Diagnostic Imaging Report ---
PROCEDURE: CT urinary tract, rule out kidney stone. TECHNIQUE: Multiple contiguous axial images were obtained through the abdomen and pelvis without the use of intravenous contrast. Auto Exposure Controls were utilized during the CT exam to meet ALARA standards for radiation dose reduction. INDICATION: Right rib and flank pain x2.5 months. CORRELATION STUDY: None. FINDINGS: LOWER THORAX: Clear. LIVER: Unremarkable. GALLBLADDER: Cholecystectomy. SPLEEN: Unremarkable. PANCREAS: Unremarkable. ADRENAL GLANDS: Unremarkable. KIDNEYS: Normal configuration. No calcification or obstruction. ABDOMINAL AORTA: Unremarkable, nonaneurysmal. GASTROINTESTINAL TRACT: Long suture line along the stomach, consistent with gastric sleeve procedure. No small bowel obstruction. Mild stool in the colon. Normal appendix. No ascites or free air. URINARY BLADDER: Decompressed. REPRODUCTIVE: Uterus and adnexa unremarkable. OSSEOUS STRUCTURES: Marked disc space narrowing at L5-S1 level. OTHER: None. IMPRESSION: 1. Negative for acute abnormality of the abdomen or pelvis. Initial report was provided by [facility]. Dictated by: Dictated on workstation # [id number]
--- NOTE | 2021-05-25 06:53 | Diagnostic Imaging Report ---
PROCEDURE: CT chest without contrast. TECHNIQUE: Multiple contiguous axial images were obtained through the chest without the use of intravenous contrast. Auto Exposure Controls were utilized during the CT exam to meet ALARA standards for radiation dose reduction. INDICATION: Right-sided chest and flank pain. Compared with CT 03/06/2021. FINDINGS: Callus associated with a nondisplaced healed or healing lateral right 7th rib fracture are present while new from the comparison CT this is a nonacute finding. No acute or unhealed fracture identified. No lung contusion, pneumothorax or hemothorax. No periaortic hemorrhage. No evidence for aspiration. No chest wall hematoma. No lymphadenopathy. Upper abdomen shows previous gastric bypass and cholecystectomy with no free fluid or free air. IMPRESSION: No acute appearing abnormality. This callus associated with a healed or healing nonacute right 7th rib fracture laterally. Clear lungs with no pleural pathology. The upper abdomen appeared nonacute. Dictated by: Dictated on workstation # [id number]
--- NOTE | 2021-05-25 06:55 | Diagnostic Imaging Report ---
INDICATION: Right chest pain FINDINGS: The lungs are clear. No failure, effusion or pneumothorax. No free air beneath the diaphragms. Cardiomediastinal and hilar contours were normal. IMPRESSION: Unremarkable frontal chest Dictated by: Dictated on workstation # [id number]
== END 2021-05-25 04:52 | disposition home or self-care (01) ==
LOC: EDUNIT# 02:24 → ER 02:27
DX: S22.31XD Fracture of one rib, right side, subsequent encounter for fracture with routine healing (principal); R07.89 Other chest pain; R10.31 Right lower quadrant pain; R10.11 Right upper quadrant pain; E66.01 Morbid (severe) obesity due to excess calories; F17.210 Nicotine dependence, cigarettes, uncomplicated; Z68.28 Body mass index [BMI] 28.0-28.9, adult; V86.59XD Driver of other special all-terrain or other off-road motor vehicle injured in nontraffic accident, subsequent encounter
CPT/HCPCS: 36415; 71045; 71250; 74176; 80053; 81000; 82150; 83690; 84703; 85025

== ENCOUNTER → 2021-09-03 | Outpatient (CLI) | payer BC ==
[~2021-09-03] MED LIST changes: +LIDO700A45 TP; +TRAM-42 PO
--- NOTE | 2021-09-03 12:33 | Diagnostic Imaging Report ---
INDICATION: Routine screening. COMPARISON: 08/28/2020 and 08/27/2019. TECHNIQUE: 2D and 3D bilateral screening mammography was performed with CAD. FINDINGS: Both breasts are heterogeneously dense, limiting the sensitivity of mammography. The parenchymal pattern appears stable. No mass or malignant-appearing microcalcifications are seen. The axillae are unremarkable. IMPRESSION: No mammographic features suspicious for malignancy are identified. ACR BI-RADS Category 1: Negative. Result letter will be mailed to the patient. Note: At least 10% of breast cancer is not imaged by mammography. Dictated by: Dictated on workstation # [id number]
== END ==
LOC: RAD 09:59
PROVIDERS: ATTEND Family Medicine
DX: Z12.31 Encounter for screening mammogram for malignant neoplasm of breast (principal)
CPT/HCPCS: 77063; 77067

== ENCOUNTER → 2022-09-04 | Outpatient (CLI) | payer BC ==
[~2022-09-04] MED LIST changes: +CYCL10TA25 PO; -CYCL10TA9 PO; +DICY20TA PO; -DICY20TA10 PO; -PLTR10OP OP; +POLY10DR31 OP
--- NOTE | 2022-09-04 12:31 | Diagnostic Imaging Report ---
INDICATION: Routine screening. COMPARISON: 09/03/2021 and 08/28/2020. TECHNIQUE: 2D and 3D bilateral screening mammography was performed with CAD. FINDINGS: Both breasts are heterogeneously dense, limiting the sensitivity of mammography. The parenchymal pattern is stable. No mass or malignant-appearing microcalcifications are seen. The axillae are unremarkable. IMPRESSION: No mammographic features suspicious for malignancy are identified. ACR BI-RADS Category 1: Negative. Result letter will be mailed to the patient. Note: At least 10% of breast cancer is not imaged by mammography. Dictated by: Dictated on workstation # [id number]
== END ==
LOC: RAD 09:21
PROVIDERS: ATTEND Family Medicine
DX: Z12.31 Encounter for screening mammogram for malignant neoplasm of breast (principal)
CPT/HCPCS: 77063; 77067

== ENCOUNTER 2022-10-29 21:43 | Emergency (ER) | payer BC ==
[~2022-10-29] VITALS: Ht 170.2 cm; Wt 81.6 kg
[2022-10-29] MEDS ORDERED: NITROGLYCERIN 0.4 MG SL TABS BTL 25'S SL PRN (21:45)
[2022-10-29] MEDS ORDERED: ASPIRIN 81 MG CHEW (CHILDREN'S ASA) PO ONE (21:45)
[2022-10-29 22:00] LABS: BASOPHILS % (AUTO) 1 % (0-10); EOSINOPHILS # (AUTO) 0.2 10^3/uL (0.0-0.3); EOSINOPHILS % (AUTO) 3 % (0-10); HEMATOCRIT 39 % (35-52); LYMPHOCYTES # (AUTO) 1.7 10^3/uL (1.0-4.0); LYMPHOCYTES % (AUTO) 32 % (12-44); MEAN CORPUSCULAR HEMOGLOBIN 30 pg (25-34); MEAN CORPUSCULAR HGB CONC 33 g/dL (32-36); MEAN CORPUSCULAR VOLUME 90 fL (80-99); MEAN PLATELET VOLUME 9.6 fL (9.0-12.2); MONOCYTES # (AUTO) 0.4 10^3/uL (0.0-1.0); MONOCYTES % (AUTO) 7 % (0-12); NEUTROPHILS # (AUTO) 3.1 10^3/uL (1.8-7.8); NEUTROPHILS % (AUTO) 58 % (42-75); PLATELET COUNT 261 10^3/uL (130-400); WHITE BLOOD COUNT 5.4 10^3/uL (4.3-11.0)
[2022-10-29 22:14] LABS: ALBUMIN 4.4 GM/DL (3.2-4.5); POTASSIUM 3.5 MMOL/L (3.6-5.0)
[2022-10-29 22:15] LABS: CALCIUM 9.4 MG/DL (8.5-10.1)
[2022-10-29 22:16] LABS: TOTAL PROTEIN 7.8 GM/DL (6.4-8.2)
[2022-10-29 22:18] LABS: BILIRUBIN,TOTAL 0.2 MG/DL (0.1-1.0)
[2022-10-29 22:19] LABS: INR 0.9 (0.8-1.4); PROTHROMBIN TIME PATIENT 12.7 SEC (12.2-14.7)
[2022-10-29 22:20] LABS: CREATININE SERUM 0.72 MG/DL (0.60-1.30)
--- NOTE | 2022-10-29 22:21 | ED Chest Pain ---
General Chief Complaint: Chest Pain Stated Complaint: CHEST PAIN Nursing Triage Note: PT AMB TO RM 7 W C/O LEFT SIDED CP THAT RADIATES TO LEFT AXILLARY REGION X1 HR. PT A&OX4. Source: patient History of Present Illness Date Seen by Provider: Oct 29, 2022 Time Seen by Provider: 21:45 Initial Comments PT ARRIVES VIA POV FROM HOME WITH C/O LEFT UPPER CHEST PAIN PAIN BEGAN ABOUT AN HOUR AGO, WHILE SHE WAS DOING LAUNDRY--WAS GETTING CLOTHES OUT OF WASHER AND PUTTING THEM IN THE DRYER WHEN PAIN BEGAN RATES PAIN 9/10 PAIN IS MUCH WORSE WITH ANY MOVEMENTS, OF HER UPPER BODY, AND ESPECIALLY WITH MOVEMENT OF HER LEFT ARM OR WITH DEEP BREATHING. NO RADIATION OF PAIN NO SHORTNESS OF BREATH, JUST HURTS TO BREATHE NO SWEATS NO NAUSEA/VOMITING NO DIZZINESS OR SYNCOPE NO PALPITATIONS NO SWELLING IN LEGS OR FEET OR PAIN IN CALVES. NO COUGH OR URI SYMPTOMS OR FEVER. NO RECENT ILLNESS OF ANY KIND HAS NOT TAKEN ANYTHING FOR PAIN NO HISTORY OF SIMILAR PT HAS HISTORY OF HYPERLIPIDEMIA, HISTORY OF MORBID OBESITY--S/P GASTRIC SLEEVE SURGERY PT IS AN ACTIVE SMOKER, RARE ETOH USE, NO DRUG USE PT HAS HAD COVID VACCINE X 2--LAST ONE A YEAR AGO. PCP: DR. MORIN. ROUTINE APPOINTMENT IN AUGUST Allergies and Home Medications Allergies Coded Allergies: codeine (Verified Allergy, Intermediate, GI UPSET/NUMBNESS IN ARMS, 10/30/17) Patient Home Medication List Home Medication List Reviewed: Yes Cyclobenzaprine HCl (Cyclobenzaprine HCl) 10 Mg Tablet, 10 MG PO Q8H PRN for SPASMS Prescribed by: AILYN BARAJAS on 03/06/212110 Cyclobenzaprine HCl (Cyclobenzaprine HCl) 10 Mg Tablet, 10 MG PO Q8H PRN for SPASMS Prescribed by: KATHERINE IBANEZ on 05/25/21 0445 Cyclobenzaprine HCl (Cyclobenzaprine HCl) 10 Mg Tablet, 10 MG PO Q8H PRN for SPASMS Prescribed by: KATHERINE IBANEZ on 10/30/22 0049 Dicyclomine HCl (Dicyclomine HCl) 20 Mg Tablet, 20 MG PO Q6H Prescribed by: KATHERINE IBANEZ on 09/13/20 2042 Hydrocodone/Acetaminophen (Hydrocodone-Acetamin 5-325 mg) 1 Each Tablet, 1 TAB PO Q6H PRN for PAIN-MODERATE (5-7) Prescribed by: AILYN BARAJAS on 03/06/212110 Hyoscyamine Sulfate (Levsin-Sl) 0.125 Mg Tab.subl, 0.25 MG SL Q4H Prescribed by: KATHERINE IBANEZ on 09/13/202041 Ketorolac Tromethamine (Ketorolac Tromethamine) 10 Mg Tablet, 10 MG PO Q6H Prescribed by: KATHERINE IBANEZ on 10/30/2248 L. Acidophilus/Pectin, Organ (Acidophilus Capsule) 1 Each Capsule, 2 EACH PO QID Prescribed by: KAHTERINE IBANEZ on 09/13/202041 Lidocaine (Lidocaine 5% Patch) 1 Each Adh..patch, 1 EACH TP Q12H PRN for Neuropathic pain Prescribed by: KATHERINE IBANEZ on 05/25/21444 Naproxen (Naprosyn) 500 Mg Tablet, 500 MG PO BID Prescribed by: AILYN BARAJAS on 11/25/191955 Ondansetron (Ondansetron Odt) 8 Mg Tab.rapdis, 8 MG PO Q6H Prescribed by: KATHERINE IBANEZ on 09/13/202041 Ondansetron (Ondansetron Odt) 4 Mg Tab.rapdis, 4 MG PO Q6H PRN for NAUSEA/VOMITING Prescribed by: AILYN BARAJAS on 03/06/212110 Pantoprazole Sodium (Protonix) 40 Mg Tablet.dr, 40 MG PO DAILY Prescribed by: KATHERINE IBANEZ on 09/13/202041 Pantoprazole Sodium (Protonix) 40 Mg Tablet.dr, 40 MG PO DAILY Prescribed by: KATHERINE IBANEZ on 10/30/2248 Polymyxin B Sulf/Trimethoprim (Polymyxin B-Tmp Eye Drops) 10 Ml Drops, 1 DROP OP QID Prescribed by: DWIGHT GASCA on 12/15/18 172 Tramadol HCl (Ultram) 50 Mg Tablet, 50 MG PO Q4H Prescribed by: KATHERINE IBANEZ on 05/25/21444 Review of Systems Review of Systems Constitutional: no symptoms reported EENTM: No Symptoms Reported Respiratory: See HPI Cardiovascular: See HPI Gastrointestinal: No Symptoms Reported Genitourinary: No Symptoms Reported Musculoskeletal: see HPI Skin: no symptoms reported Psychiatric/Neurological: No Symptoms Reported Endocrine: No Symptoms Reported Hematologic/Lymphatic: No Symptoms Reported Past Xbuninf-Fsyteo-Bwyyhl Hx Patient Social History Tobacco Use?: Yes Tobacco type used: Cigarettes Smoking Status: Current Everyday Smoker Use of E-Cig and/or Vaping dev: No Substance use?: No Alcohol Use?: Yes Alcohol Frequency: Rarely Immunizations Up To Date Tetanus Booster (TDap): Less than 5yrs PED Vaccines UTD: No First/Initial COVID19 Vaccinat: 2020 Second COVID19 Vaccination Marck: 2020 Third COVID19 Vaccination Date: NONE COVID19 Vaccine [place]: Marvel X2 Seasonal Allergies Seasonal Allergies: No Past Medical History Surgery/Hospitalization HX: GASTRIC SLEEVE 2017 CHOLECYSTECTOMY RIGHT HAND/WRIST GANGLION CYST RIGHT AXILLA LYMPH NODE BIOPSY Surgeries: Yes (RIGHT HAND CYST REMOVED, lymph node biopsy right axilla;GASTRIC SLEEVE 2016) Abdominal, Section, Gallbladder, Orthopedic Respiratory: No Cardiac: Yes High Cholesterol Neurological: No Reproductive Disorders: No Female Reproductive Disorders: Denies Sexually Transmitted Disease: No HIV/AIDS: No Genitourinary: No Gastrointestinal: Yes (CHOLECYSTECTOMY; GASTRIC SLEEVE 2016; FATTY LIVER) Liver Disease/Jaundice, Gall Bladder Disease Musculoskeletal: Yes (LEFT SHOULDER/NECK PAIN) Endocrine: No (MORBID OBESITY--S/P GASTRIC SLEEVE 2016) HEENT: No Loss of Vision: Bilateral Hearing Impairment: Denies Cancer: No Psychosocial: No Integumentary: No Blood Disorders: No Adverse Reaction/Blood Tranf: No (N/A) Family Medical History Colon cancer 19 FATHER Diabetes mellitus 19 MOTHER G8 SISTER FH: CHF (congestive heart failure) 19 FATHER 19 MOTHER FH: breast cancer 19 MOTHER Myocardial infarction 19 FATHER Thyroid disease 19 MOTHER G8 SISTER Heart Disease, Diabetes Physical Exam Vital Signs Vital Signs - First Documented 10/29/22 21:45 Temp 35.6 Pulse 73 Resp 18 B/P (MAP) 132/80 (97) Pulse Ox 97 O2 Delivery Room Air Capillary Refill : Less Than 3 Seconds Height, Weight, BMI Height: 5'7.00" Weight: 177lbs. 8.0oz. 80.143655oa; 28.00 BMI Method:Stated General Appearance: No Apparent Distress, WD/WN, Other (PUSHING ON LEFT UPPER CHEST) Neck: Full Range of Motion, Normal Inspection, Non Tender, Supple Respiratory: Normal Breath Sounds, No Accessory Muscle Use, No Respiratory Distress, Other (MARKED TENDERNESS TO LEFT UPPER CHEST--PALPATION DRAMATICALLY REPRODUCES PAIN, DOES ANY MOVEMENT OF TRUNK OR LEFT ARM. ) Cardiovascular: Regular Rate, Rhythm, No Edema, No JVD, No Murmur, Normal Peripheral Pulses Gastrointestinal: Normal Bowel Sounds, No Organomegaly, Non Tender, Soft Extremity: Normal Capillary Refill, Normal Inspection, Normal Range of Motion, Non Tender, No Calf Tenderness, No Pedal Edema Neurologic/Psychiatric: Alert, Oriented x3, No Motor/Sensory Deficits, insurance professional II- XII Norm as Tested Skin: Normal Color, Warm/Dry; No Rash; Tattoos/Piercings Progress/Results/Core Measures Results/Orders Lab Results Laboratory Tests Test 10/29/22 21:54 10/30/22 00:09 Range/Units White Blood Count 5.4 4.3-11.0 10^3/uL Red Blood Count 4.37 3.80-5.11 10^6/uL Hemoglobin 13.0 11.5-16.0 g/dL Hematocrit 39 35-52 % Mean Corpuscular Volume 90 80-99 fL Mean Corpuscular Hemoglobin 30 25-34 pg Mean Corpuscular Hemoglobin Concent 33 32-36 g/dL Red Cell Distribution Width 12.0 10.0-14.5 % Platelet Count 261 130-400 10^3/uL Mean Platelet Volume 9.6 9.0-12.2 fL Immature Granulocyte % (Auto) 0 % Neutrophils (%) (Auto) 58 42-75 % Lymphocytes (%) (Auto) 32 12-44 % Monocytes (%) (Auto) 7 0-12 % Eosinophils (%) (Auto) 3 0-10 % Basophils (%) (Auto) 1 0-10 % Neutrophils # (Auto) 3.1 1.8-7.8 10^3/uL Lymphocytes # (Auto) 1.7 1.0-4.0 10^3/uL Monocytes # (Auto) 0.4 0.0-1.0 10^3/uL Eosinophils # (Auto) 0.2 0.0-0.3 10^3/uL Basophils # (Auto) 0.0 0.0-0.1 10^3/uL Immature Granulocyte # (Auto) 0.0 0.0-0.1 10^3/uL Prothrombin Time 12.7 12.2-14.7 SEC INR Comment 0.9 0.8-1.4 Activated Partial Thromboplast Time 29 24-35 SEC D-Dimer 0.41 0.00-0.49 UG/ML Sodium Level 142 135-145 MMOL/L Potassium Level 3.5 L 3.6-5.0 MMOL/L Chloride Level 107 98-107 MMOL/L Carbon Dioxide Level 22 21-32 MMOL/L Anion Gap 13 5-14 MMOL/L Blood Urea Nitrogen 17 7-18 MG/DL Creatinine 0.72 0.60-1.30 MG/DL Estimat Glomerular Filtration Rate 102 BUN/Creatinine Ratio 24 Glucose Level 94 70-105 MG/DL Calcium Level 9.4 8.5-10.1 MG/DL Corrected Calcium 9.1 8.5-10.1 MG/DL Magnesium Level 2.1 1.6-2.4 MG/DL Total Bilirubin 0.2 0.1-1.0 MG/DL Aspartate Amino Transf (AST/SGOT) 23 5-34 U/L Alanine Aminotransferase (ALT/SGPT) 48 0-55 U/L Alkaline Phosphatase 99 40-136 U/L Total Creatine Kinase 63 29-168 U/L Creatine Kinase MB 0.7 <6.6 NG/ML Myoglobin 28.1 10.0-92.0 NG/ML Troponin I < 0.028 < 0.028 <0.028 NG/ML B-Type Natriuretic Peptide < 10.0 <100.0 PG/ML Total Protein 7.8 6.4-8.2 GM/DL Albumin 4.4 3.2-4.5 GM/DL Amylase Level 82 25-125 U/L Lipase 63 8-78 U/L My Orders Orders - KATHERINE IBANEZ DO Ekg Tracing (10/29/22 21:45) Cbc With Automated Diff (10/29/22 21:45) Magnesium (10/29/22 21:45) Chest 1 View, Ap/Pa Only (10/29/22 21:45) Comprehensive Metabolic Panel (10/29/22 21:45) Myoglobin Serum (10/29/22 21:45) Protime With Inr (10/29/22 21:45) Partial Thromboplastin Time (10/29/22 21:45) O2 (10/29/22 21:45) Monitor-Rhythm Ecg Trace Only (10/29/22 21:45) Ed Iv/Invasive Line Start (10/29/22 21:45) Creatine Kinase (10/29/22 21:45) Creatine Kinase Mb (10/29/22 21:45) Lipase (10/29/22 21:45) Amylase (10/29/22 21:45) Bnp Joshua (10/29/22 21:45) Fibrin Degradation Products (10/29/22 21:45) Troponin I Jenkins (10/29/22 21:45) Nitroglycerin 0.4 Mg Btl 25's (Nitrostat (10/29/22 21:45) Aspirin Chewable Tablet (Baby Aspirin Ch (10/29/22 21:45) Fentanyl Inj (Sublimaze Injection) (10/29/22 22:45) Troponin I Joshua (10/30/22 00:02) Medications Given in ED Current Medications Medications Dose Ordered Sig/Farhat Route Start Time Stop Time Status Last Admin Dose Admin Aspirin 324 mg ONCE ONCE PO 10/29/22 21:45 10/29/22 21:47 DC 10/29/22 21:58 324 MG Fentanyl Citrate 50 mcg ONCE ONCE IVP 10/29/22 22:45 10/29/22 22:46 DC 10/29/22 22:58 50 MCG Vital Signs/I&O 10/29/22 21:45 Temp 35.6 Pulse 73 Resp 18 B/P (MAP) 132/80 (97) Pulse Ox 97 O2 Delivery Room Air Blood Pressure Mean: 97 Progress Progress Note : Progress Note GIVEN: -ASPIRIN -TORADOL--PT STATES IT DIDN'T HELP MUCH, YET STATES HER PAIN IS A 2/10 ( DOWN FROM 9/10 ON ARRIVAL) -FENTANYL-PAIN DOWN TO 1/10 SLEPT FOR MOST OF ER STAY SYMPTOMS RESOLVED AT DISMISSAL REVIEWED OLD RECORDS, INCLUDING H&P'S, CONSULTS, PROCEDURES, DISCHARGE SUMMARIES REVIEWED TEST RESULTS, SYMPTOMATIC TREATMENT, NEED FOR FOLLOW UP AND RETURN PRECAUTIONS DISCUSSED WITH PT AND . Initial ECG Impression Date: Oct 29, 2022 Initial ECG Impression Time: 21:53 Initial ECG Rate: 71 Initial ECG Rhythm: Normal Sinus Initial ECG Comparisson: Unchanged (FROM 2015) Diagnostic Imaging Comments CXR--PENDING RADIOLOGIST REVIEW -NO ACUTE PROCESS Reviewed: Reviewed by Me Departure Impression Primary Impression: Left-sided chest wall pain Disposition: HOME, SELF-CARE Condition: Improved Departure-Patient Inst. Decision time for Depature: 00:45 Referrals: EWA MORIN MD (PCP/Family) Primary Care Physician Patient Instructions: Chest Pain (DC), Costochondritis (DC) Add. Discharge Instructions: HOME, REST ALTERNATE ICE AND HEAT TO AREA AT 20 MINUTE INTERVALS NO LIFTING OVER [address]. FOLLOW UP WITH DR. MORIN THIS WEEK FOR FURTHER CARE--CALL IN THE MORNING TO SCHEDULE APPOINTMENT RETURN TO ER IF SYMPTOMS RETURN All discharge instructions reviewed with patient and/or family. Voiced understanding. Scripts Pantoprazole Sodium (Protonix) 40 Mg Tablet.dr 40 MG PO DAILY, #15 TAB Prov: KATHERINE IBANEZ DO 10/30/22 Cyclobenzaprine HCl (Cyclobenzaprine HCl) 10 Mg Tablet 10 MG PO Q8H PRN for SPASMS, #15 TAB 0 Refills Prov: KATHERINE IBANEZ DO 10/30/22 Ketorolac Tromethamine (Ketorolac Tromethamine) 10 Mg Tablet 10 MG PO Q6H for Pain, #15 TAB Prov: KATHERINE IBANEZ DO 10/30/22 KATHERINE IBANEZ DO Oct 29, 2022 22:21
[2022-10-29 22:23] LABS: MAGNESIUM 2.1 MG/DL (1.6-2.4)
[2022-10-29 22:31] LABS: CREATINE KINASE MB 0.7 NG/ML (<6.6)
[2022-10-29] MEDS ORDERED: fentaNYL INJ 100 MCG/2 ML AMP IVP ONE (22:45)
[2022-10-30] MEDS ORDERED: KETO10TA PO (00:49)
[2022-10-30] MEDS ORDERED: PANT40TA2 PO (00:49)
[2022-10-30] MEDS ORDERED: CYCL10TA25 PO (00:49)
[2022-10-30 00:55] VITALS: BP 108/66
--- NOTE | 2022-10-30 05:50 | Diagnostic Imaging Report ---
INDICATION: Chest pain COMPARISON: 05/25/2021 FINDINGS: Single frontal view of the chest demonstrates normal heart size and pulmonary vascularity. The lungs are well aerated and clear. No large pleural effusion or pneumothorax is seen. The visualized osseous structures show no acute abnormalities. IMPRESSION: 1. No acute cardiopulmonary process. Dictated by: Dictated on workstation # [id number]
== END 2022-10-30 00:55 | disposition home or self-care (01) ==
LOC: EDUNIT# 21:43 → ER 21:44
DX: R07.89 Other chest pain (principal); F17.210 Nicotine dependence, cigarettes, uncomplicated; Z88.5 Allergy status to narcotic agent
CPT/HCPCS: 36415; 71045; 80053; 82150; 82550; 82553; 83690; 83735; 83874; 83880; 84484; 85025; 85379; 85610; 85730; 93005; 93041

== ENCOUNTER → 2023-09-09 | Outpatient (CLI) | payer OTHER ==
[~2023-09-09] MED LIST changes: +ASCO100025 PO; +BIOT50004 PO; +CALC600T91 PO; +KETO10TA PO; +MULT-593 PO; +POLY10DR20 OP; -POLY10DR31 OP; +SIMV20TA26 PO
--- NOTE | 2023-09-09 15:35 | Diagnostic Imaging Report ---
INDICATION: Routine screening. COMPARISON: 09/04/2022 and 09/03/2021. TECHNIQUE: 2D and 3D bilateral screening mammography was performed with CAD. FINDINGS: Both breasts are heterogeneously dense, limiting the sensitivity of mammography. The parenchymal pattern is stable. There are benign calcifications. No mass or malignant-appearing microcalcifications are identified. The axillae are unremarkable. IMPRESSION: No mammographic features suspicious for malignancy are identified. ACR BI-RADS Category 2: Benign findings. Result letter will be mailed to the patient. Note: At least 10% of breast cancer is not imaged by mammography. Dictated by: Dictated on workstation # [id number]
== END ==
LOC: RAD 08:15
PROVIDERS: ATTEND Family Medicine
DX: Z12.31 Encounter for screening mammogram for malignant neoplasm of breast (principal)
CPT/HCPCS: 77063; 77067

== ENCOUNTER 2023-09-10 05:39 | Outpatient (CLI) | payer OTHER ==
[~2023-09-10] VITALS: Ht 170.2 cm; Wt 83.6 kg
[~2023-09-10 05:39] MED LIST changes: -ASCO100025 PO; -BIOT50004 PO; -CALC600T91 PO; -MULT-593 PO; -SIMV20TA26 PO
[2023-09-10] MEDS ORDERED: CALC600T91 PO (09:21)
[2023-09-10] MEDS ORDERED: ASCO100025 PO (09:21)
[2023-09-10] MEDS ORDERED: SIMV20TA26 PO (09:21)
[2023-09-10] MEDS ORDERED: BIOT50004 PO (09:21)
[2023-09-10] MEDS ORDERED: MULT-593 PO (09:21)
== END 2023-09-10 09:26 | disposition home or self-care (01) ==
LOC: PREOP 05:39
PROVIDERS: ATTEND Surgery
DX: Z01.818 Encounter for other preprocedural examination (principal)

== ENCOUNTER 2023-09-17 10:41 | Day surgery (SDC) | payer OTHER ==
[~2023-09-17] VITALS: Ht 170 cm; Wt 83.6 kg
[~2023-09-17 10:41] MED LIST changes: +ASCO100025 PO; +BIOT50004 PO; +CALC600T91 PO; +MULT-593 PO; +SIMV20TA26 PO
[2023-09-17] MEDS ORDERED: HURRICAINE EXT TUBE (BENZOCAINE) XX PRN (10:45)
[2023-09-17] MEDS ORDERED: LACTATED RINGERS 1,000 ML 1,000 ML IV STA (10:45)
[2023-09-17] MEDS ORDERED: LACTATED RINGERS 1,000 ML 1,000 ML IV ONE (10:50)
[2023-09-17] MEDS ORDERED: HURRICAINE EXT TUBE (BENZOCAINE) ONE (10:50)
[2023-09-17 11:00] VITALS: BP 116/69
[2023-09-17] MEDS ORDERED: LIDOCAINE JELLY 2% 6 ML SYRINGE ONE (11:43)
--- NOTE | 2023-09-17 11:52 | Progress Note-Pre Operative ---
Pre-Operative Progress Note Date of Available H&P: Sep 17, 2023 Date H&P Reviewed: Sep 17, 2023 Time H&P Reviewed: 11:00 History & Physical: No changes noted Pre-Operative Diagnosis: screening colo/family hx ANNEMARIE BRYANT MD Sep 17, 2023 11:52
--- NOTE | 2023-09-17 11:53 | Discharge Inst-Surgical ---
D/C Lap Instructions-ANNETTE Follow Up Activity as tolerated High Fiber Diet 25g or more per day Avoid Alcohol, Caffeine, Spicy [place] and Acid foods. Drink 64 fluid oz or more of fluids per day. Symptoms to Report: Fever over 101 degree F, Nausea/Vomiting If any problems/questions: Contact your physician or go to Emergency Room ANNEMARIE BRYANT MD Sep 17, 2023 11:53
[2023-09-17] MEDS ORDERED: ONDANSETRON 4 MG ORAL DISSOLVE TABLET PO PRN (12:00)
[2023-09-17] MEDS ORDERED: ONDANSETRON INJECTION 4 MG/2 ML (SDV) IVP PRN (12:00)
[2023-09-17 12:40] VITALS: BP 97/58
[2023-09-17 12:50] VITALS: BP 97/58
[2023-09-17 13:01] VITALS: BP 97/58
--- NOTE | 2023-09-17 13:08 | Progress Note-Post Operative ---
Post-Operative Progess Note Surgeon (s)/Environmental Technical Officer (s) Surgeon ANNEMARIE BRYANT MD Environmental Technical Officer: none Pre-Operative Diagnosis screening colo/family hx Post-Operative Diagnosis mild sigmoid diverticulosis. Procedure & Operative Findings Date of Procedure 09/17/23 Procedure Performed/Findings colonoscopy Anesthesia Type mac Estimated Blood Loss Estimated blood loss (mL): minimal Specimens/Packing Specimens Removed none ANNEMARIE BRYANT MD Sep 17, 2023 13:08
[2023-09-17] MEDS ORDERED: MIDAZOLAM INJ 2 MG/2 ML VIAL ONE (13:09)
--- NOTE | 2023-09-17 22:22 | OPERATIVE REPORT ---
DATE OF SERVICE: 09/17/2023 ATTENDING PRIMARY CARE PHYSICIAN:Tri Hinojosa MD PREOPERATIVE DIAGNOSIS: Screening colonoscopy. POSTOPERATIVE DIAGNOSIS: Mild sigmoid diverticulosis. PROCEDURE: Colonoscopy. SURGEON: Annemarie Bryant MD ANESTHESIA: Monitored anesthesia care. ESTIMATED BLOOD LOSS: Minimal. FINDINGS: Mild sigmoid diverticulosis. DISPOSITION: The patient tolerated the procedure well. INDICATIONS: The patient is a 53-year-old female known to us. We had seen her in 2017 for morbid obesity and hyperlipidemia and underwent a laparoscopic gastric sleeve resection on 11/06/2017. She reports that she has been doing well for weight loss with maintenance with diet and exercise, however, she is in need of a screening colonoscopy. Her last one was in 2017 and believes this to be normal. She does have a first-degree family history of colon cancer with her father having the disease. DESCRIPTION OF PROCEDURE: The patient was brought to the endoscopy suite and laid in the left lateral decubitus position. After adequate IV pain and sedative medications and monitored anesthesia care, a digital rectal examination was performed. No significant hemorrhoids were identified. Normal sphincter tone was felt and there were no palpable masses. The endoscope was then intubated into the anus, rectum gently insufflated. The endoscope was then advanced through the valves of the Hinojosa of the rectum with no polyps or any neoplasms identified. We then proceeded through the sigmoid colon where very mild sigmoid diverticulosis identified. The endoscope was then advanced through the remainder of the descending, transverse and ascending colon to the cecum, which were normal. There were no polyps or any neoplasms identified throughout the colon or rectum. The endoscope was then slowly withdrawn while taking a second look and suctioning of residual air with no additional findings. The patient tolerated the procedure well. We will recommend continued medical management with a high-fiber diet with a fiber supplement, which should equal or exceed 25 grams daily as well as significant amounts of water to promote soft consistency stools on a daily basis. Due to her first-degree family history of colon cancer, we will recommend a followup colonoscopy in approximately 5 years. Job ID: [id number] DocumentID: [id number] Dictated Date: 09/17/2023 12:42:27 [employer] Security Consultant Date: 09/17/2023 22:20:00 Dictated By: ANNEMARIE BRYANT MD
== END 2023-09-17 13:20 | disposition home or self-care (01) ==
LOC: ENDO 10:41
PROVIDERS: ATTEND Surgery
DX: Z12.11 Encounter for screening for malignant neoplasm of colon (principal); K57.30 Diverticulosis of large intestine without perforation or abscess without bleeding; Z98.84 Bariatric surgery status; Z80.0 Family history of malignant neoplasm of digestive organs; Z87.891 Personal history of nicotine dependence